=== PATIENT | male | born 1950 | race Caucasian/White ===

== ENCOUNTER 2017-02-13 18:23 | Emergency (ER) | payer OTHER ==
[2017-02-13 18:38] VITALS: BP 163/87; PULSE 66; TEMP 98.2; BMI 30.1
[2017-02-13] MEDS ORDERED: DIPHTH,PERTUSS(ACELL),TET 0.5 ML DISP.SYRIN IM ONE (19:12)
--- NOTE | 2017-02-13 19:13 | PDOC ---
History of Present Illness - General Chief Complaint: Injury Stated Complaint: LT FOOT INJURY Time Seen by Provider: 02/13/17 19:07 History Source: Patient Exam Limitations: No Limitations - History of Present Illness Initial Comments: 02/13/17 19:34 Chief complaint: Foot laceration This 66-year-old male who is on aspirin who hit his toe and has a small avulsion that happened earlier, he bandaged it but it was continuing to bleed. Patient's tetanus is not up to date GENERAL/CONSTITUTIONAL: No fever, weakness. dizziness HEAD, EYES, EARS, NOSE AND THROAT: No change in vision. No ear pain or discharge. No sore throat. CARDIOVASCULAR: No chest pain RESPIRATORY: No shortness of breath or cough GASTROINTESTINAL: No pain, nausea, vomiting, diarrhea or constipation GENITOURINARY: No dysuria MUSCULOSKELETAL: No neck or back pain SKIN: No rash NEUROLOGIC: No headache, vertigo, loss of consciousness, or loss of sensation. GENERAL: The patient is awake, alert, and fully oriented, in no acute distress. HEAD: Normal with no signs of trauma. EYES: Pupils equal, round and reactive to light, sclera anicteric, conjunctiva clear. ENT: pharynx: no erythema, no exudate, uvula midline NECK: supple CHEST: clear, nontender, rr EXTREMITIES: Left little toe with 1 cm superficial skin avulsion on the dorsum, no swelling or tenderness, full range of motion, nail intact. Exam of rest of the foot is negative. Rest of extremities, normal range of motion, no edema. NEUROLOGICAL: Normal speech, normal gait. SKIN: Warm, Dry Past History - Past Medical History Allergies/Adverse Reactions: Allergies Allergy/AdvReac Type Severity Reaction Status Date / Time No Known Drug Allergies Allergy Verified 02/13/17 18:39 Home Medications: Ambulatory Orders Aspirin [ASA -] 81 mg PO ONCE 08/08/14 Fenofibrate Nanocrystallized [Tricor] 145 mg PO DAILY 08/08/14 Losartan/Hydrochlorothiazide [Losartan-Hctz 50-12.5 mg Tab] 1 each PO DAILY Metoprolol Tartrate [Lopressor -] 100 mg PO BID 08/08/14 [place]-3 Acid Ethyl Esters [Lovaza -] 1 gm PO BID 08/08/14 Oxycodone HCl/Acetaminophen [Percocet 5-325 mg Tablet -] 1 tab PO Q4H PRN #20 tablet 08/13/14 Zolpidem Tartrate [Ambien] 5 mg PO PRN PRN #0 tablet 08/13/14 Omeprazole [Prilosec] 40 mg PO BID 04/28/16 Anemia: No Asthma: No Cancer: No Cardiac Disorders: No CVA: No COPD: No CHF: No Dementia: No Diabetes: No GI Disorders: No Disorders: No HTN: Yes Hypercholesterolemia: Yes Liver Disease: No Seizures: No Thyroid Disease: No - Surgical History Abdominal Surgery: No Appendectomy: No Cardiac Surgery: Yes Cholecystectomy: No Lung Surgery: No Neurologic Surgery: No Orthopedic Surgery: Yes - Psycho/Social/Smoking Cessation Hx Suicidal Ideation: No Smoking History: Never smoked Hx Alcohol Use: Yes (SOCIAL) Drug/Substance Use Hx: No Substance Use Type: None Hx Substance Use Treatment: No *Physical Exam - Vital Signs Last Vital Signs Temp Pulse Resp BP Pulse Ox 98.2 F 66 20 163/87 98 02/13/17 18:35 02/13/17 18:35 02/13/17 18:35 02/13/17 18:35 02/13/17 18:35 Medical Decision Making - Medical Decision Making 02/13/17 19:36 Patient with multiple medical problems, who was on a full aspirin with the wall superficial avulsion on the dorsum of the left little toe which would not stop bleeding is not bleeding now. No indication for imaging. Patient will get tetanus update since he doesn't know when his last tetanus was and we will redress sitting give him instructions Discussed issues, findings, results, applicable medications and treatments and follow-up. All these were understood and all questions were answered *DC/Admit/Observation/Transfer Diagnosis at time of Disposition: Avulsion of skin of foot Qualifiers: Encounter type: initial encounter Laterality: left Qualified Code(s): S91.302A - Unspecified open wound, left foot, initial encounter - Discharge Dispostion Disposition: HOME Condition at time of disposition: Stable Admit: No - Patient Instructions Printed Discharge Instructions: DI for Avulsion Laceration (Not Requiring Sutures) Additional Instructions: Clean with soap and water 2-3 times daily, apply bacitracin Have her reevaluated if redness, pus, fever or getting worse Followup with your doctor
== END 2017-02-13 19:27 | disposition home or self-care (01) ==
LOC: JERFT 18:23
DX: S91.105A Unspecified open wound of left lesser toe(s) without damage to nail, initial encounter (principal); I10 Essential (primary) hypertension; E78.00 Pure hypercholesterolemia, unspecified; W22.01XA Walked into wall, initial encounter; Y93.89 Activity, other specified; Y92.89 Other specified places as the place of occurrence of the external cause
CPT/HCPCS: 90715; 99281-25

== ENCOUNTER 2018-04-26 06:14 | Day surgery (SDC) | payer OTHER ==
--- NOTE | 2018-04-21 13:23 | HP ---
DATE OF ADMISSION: 04/26/2018 DATE OF DICTATION: 03/09/2018 Patient is to be admitted to the Ambulatory Surgical Service at [place] in the near future, date to be determined. HISTORY: This is a 67-year-old man who states he has had a soft tissue mass in his left upper back for 10 if not 20 years. It has been slowly increasing in size. After bringing this to the attention of his PMD recently, he was advised to undergo formal excision of the lesion. PAST MEDICAL HISTORY: Significant for hypertension. No known history of heart disease, diabetes, respiratory, renal, or hepatic insufficiency. PAST SURGICAL HISTORY: Nil. ALLERGIES: None known. REGULAR MEDICATIONS: Metoprolol, baby aspirin. SOCIAL HISTORY: Negative for tobacco, negative for alcohol. FAMILY HISTORY: Nil. REVIEW OF SYSTEMS: Nil. PHYSICAL EXAMINATION: On examination, the patient has a soft tissue mass of the left upper back measuring approximately 5 x 7 cm in size. It appears to be largely confined to the subcutaneous space. It is somewhat fixed in its deeper plane. There are no obvious silent lesions or regional lymphadenopathy. IMPRESSION: Progressively enlarging soft tissue mass of the left upper back. 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 PLAN: Excision soft tissue mass, left upper back. Indications, alternatives, possible complications were reviewed. Consent obtained. Patient is to be seen preoperatively by Dr. Carrillo. Please refer to his notes for those medical details. SLOANE TAY M.D. [id number] cc: YOSEF CARRILLO MD
[2018-04-24 13:34] VITALS: BMI 30.1
[~2018-04-26 06:14] MED LIST: LIDOCAINE 1%/EPI 1:100000 (20 ML MULTI DOSE VIAL) IJ ONE; ceFAZolin SODIUM 1 GM VIAL IVPB ONE
[2018-04-26] MEDS ORDERED: PROPOFOL 20 ML ONE ×2 (07:58→08:36)
[2018-04-26] MEDS ORDERED: SUCCINYLCHOLINE CHLORIDE 200 MG/10 ML VIAL ONE (07:58)
[2018-04-26] MEDS ORDERED: MIDAZOLAM HCL 2 MG/2 ML SINGLE DOSE VIAL ONE ×2 (07:58→08:25)
[2018-04-26] MEDS ORDERED: ceFAZolin SODIUM 1 GM VIAL IVPB ONE (08:20)
[2018-04-26] MEDS ORDERED: LIDOCAINE HCL/PF 2% SDV 5ML VIAL ONE (08:32)
[2018-04-26] MEDS ORDERED: ceFAZolin SODIUM 1 GM VIAL ONE (08:32)
[2018-04-26] MEDS ORDERED: LIDOCAINE 1%/EPI 1:100000 (20 ML MULTI DOSE VIAL) IJ ONE ×2 (08:34)
[2018-04-26 10:05] VITALS: TEMP 97.4
[2018-04-26 10:42] VITALS: BP 121/57; PULSE 60
[2018-04-26] MEDS ORDERED: ONDANSETRON 4 MG/2 ML VIAL IVPUSH PRN (11:44)
[2018-04-26] MEDS ORDERED: LACTATED RINGERS SOLUTION 1,000 ML IV SCH (11:45)
--- NOTE | 2018-04-27 12:59 | OP ---
DATE OF OPERATION: 04/26/2018 PREOPERATIVE DIAGNOSIS: Soft tissue mass, upper back. POSTOPERATIVE DIAGNOSIS: Subfascial lipomatous neoplasia, upper back. PROCEDURE: Excision subfascial lipomatous neoplasia, upper back/intermediate wound closure (6 cm). OPERATING SURGEON: Ron Jo MD ANESTHESIA: Local/sedation (Dr. Cannon). HISTORY: This 67-year-old man who presents for excision of an enlarging soft tissue mass of the upper back. Indications, alternatives, and possible complications reviewed. Consent was obtained. DESCRIPTION OF PROCEDURE: With the patient in the right lateral decubitus position, the upper back was prepped and draped in usual sterile fashion using chlorhexidine. A 6-cm oblique incision was made directly over the mass and deepened into the subcutaneous space. Deep to the superficial subcutaneous tissue, a lipomatous neoplasia was identified, which was rather poorly defined and with projections into the [place] subcutaneous fat. Sharp dissection ensued freeing the lesion from its bed and up. In its deeper plane, it was noted emanating from some of the fibers of the muscle below. The muscle fibers were , and the lesion was teased from its bed within the muscle itself openly delivering the lesion. After adequate hemostasis and irrigation, the wound was closed in layers. The fascia of the muscle below was closed using interrupted 2-0 Vicryl sutures. Subcutaneous tissues were approximated using 3-0 chromic sutures. The subcuticular layer was approximated using interrupted 3-0 Vicryl sutures. The skin edges were closed using continuous 5-0 nylon suture. Prior to complete closure, 10 mL of 1% lidocaine with epinephrine was freely instilled in the wound. Dermabond applied. Procedure terminated. NEEDLE AND INSTRUMENT COUNTS: Correct. ESTIMATED BLOOD LOSS: Minimal. SPECIMENS: Soft fascial lipomatous neoplasia, upper back. DRAINS: None. Patient tolerated the procedure. The procedure was terminated. Karthik [id number]
--- NOTE | 2018-04-27 14:52 | PATH ---
Surgical Pathology Report Patient Name: RAFFY BILLY [facility]. Rec. #: [id number] /Age/Gender: 1950 (Age: 67) / M Account: [id number] Location: [facility] SURGICAL Taken: 04/26/2018 Received: 04/26/2018 Reported: 04/27/2018 Physicians: Ron Jo M.D. Specimen(s) Received SOFT TISSUE LIPOMA NEOPLASIA FROM LEFT UPPER BACK Clinical History Soft tissue mass Final Diagnosis UPPER BACK, LEFT, EXCISION: MATURE FIBROADIPOSE TISSUE CONSISTENT WITH LIPOMA. Electronically Signed Eliza Kan M.D. Gross Description Received in formalin labeled "lipoma left upper back" is a lobulated, yellow adipose tissue weighing 51 g which measures 6.5 x 5.5 x 3 cm. Cut sections show a yellow homogeneous surface with focal scant fibrotic component. No hemorrhage or necrosis identified. Carding Utility Tender sections are submitted in 2 cassettes KWS/04/26/2018 sulki/04/26/2018
== END 2018-04-26 10:42 | disposition home or self-care (01) ==
LOC: JASU-SURG 06:14
PROVIDERS: ATTEND Surgery
PROC: 0JB70ZZ Excision of Back Subcutaneous Tissue and Fascia, Open Approach (ICD-10-PCS; principal; 2018-04-26 08:00)
DX: D17.1 Benign lipomatous neoplasm of skin and subcutaneous tissue of trunk (principal)
CPT/HCPCS: 88304-TC; 94760

== ENCOUNTER 2018-12-28 06:09 | Day surgery (SDC) | payer OTHER ==
[2018-12-11 13:52] VITALS: BMI 30.1
[2018-12-28] MEDS ORDERED: MIDAZOLAM HCL 2 MG/2 ML SINGLE DOSE VIAL ONE (07:26)
[2018-12-28] MEDS ORDERED: PROPOFOL 20 ML ONE (07:26)
[2018-12-28] MEDS ORDERED: LIDOCAINE HCL 1%, 10 MG/ML (20ML VIAL) ONE (07:36)
[2018-12-28] MEDS ORDERED: BUPIVACAINE HCL/PF 0.5% (5MG/ML) 10 ML VIAL ONE (07:36)
--- NOTE | 2018-12-28 08:10 | HP ---
Satellite [facility] - Chief Complaint Chief Complaint: right hand pain, numbness History of Present Illness: right CTS History Source: Patient Limitations to Obtaining History: No Limitations - Past Medical History Allergies/Adverse Reactions: Allergies Allergy/AdvReac Type Severity Reaction Status Date / Time No Known Drug Allergies Allergy Verified 12/28/18 06:36 - Current Medications Current Medications: Home Medications Medication Instructions Recorded Aspirin [ASA -] 81 mg PO ONCE 08/08/14 Fenofibrate Nanocrystallized 145 mg PO DAILY 08/08/14 [Tricor] Losartan/Hydrochlorothiazide 1 each PO DAILY 08/08/14 [Losartan-Hctz 50-12.5 mg Tab] Metoprolol Tartrate [Lopressor -] 100 mg PO BID 08/08/14 [place]-3 Acid Ethyl Esters [Lovaza 1 gm PO BID 08/08/14 -] Multivit ([facility] Formulary) 1 mg PO DAILY 12/11/18 Satellite Physical Exam - Physical Examination Vital Signs: Vital Signs Period Temp Pulse Resp BP Sys/Cunningham Pulse Ox Last 24 Hr 97.8 F-97.8 F 54-54 20-20 128-128/71-71 96 General Appearance: Well Nourished ENT: Clear Lung: Clear to auscultation Heart: Regular rate & rhythm Breasts: Soft Abdomen: Soft Extremities: No edema Satellite Impression/Plan - Impression/Plan Impression: right CTS Operative Procedure: right CTR Date to be Performed: 12/28/18
[2018-12-28] MEDS ORDERED: ceFAZolin SODIUM 1 GM VIAL IVPB ONE (08:15)
[2018-12-28] MEDS ORDERED: ceFAZolin SODIUM 1 GM VIAL ONE (08:22)
[2018-12-28] MEDS ORDERED: LIDOCAINE HCL 1%, 10 MG/ML (50 mL VIAL) IJ ONE (08:24)
[2018-12-28] MEDS ORDERED: BUPIVACAINE HCL/PF (5 MG/ML) 30 ML VIAL IJ ONE (08:24)
--- NOTE | 2018-12-28 08:49 | OP ---
Operative Note - Note: Operative Date: 12/28/18 Pre-Operative Diagnosis: right CTS, tenosynovitis Operation: right CTR, tenosynovectomy Post-Operative Diagnosis: Same as Pre-op Surgeon: Stephen Rodriguez Anesthesiologist/FUR STORAGE CLERK: Gaby Edmondson Anesthesia: Local, MAC Specimens Removed: tenosynovium Estimated Blood Loss (mls): 0 Blood Volume Replaced (mls): 0 Fluid Volume Replaced (mls): 500 Operative Report Dictated: Yes
--- NOTE | 2018-12-28 09:11 | SPEC ---
DATE OF OPERATION: 12/28/2018 PREOPERATIVE DIAGNOSES: Right carpal tunnel syndrome and tenosynovitis. POSTOPERATIVE DIAGNOSES: Right carpal tunnel syndrome and tenosynovitis. PROCEDURE: Right carpal tunnel release and tenosynovectomy. SURGEON: Stephen Rodriguez M.D. ASSISTANTS: None. TOURNIQUET TIME: 16 minutes. ANESTHESIOLOGIST: LUZ MARIA Francois ANESTHESIA: MAC and local. Injection of 15 mL 0.5% Marcaine and 1% lidocaine mix. DRAINS: None. COMPLICATIONS: None. SPECIMEN: Tenosynovium. DRAINS: None. INDICATIONS: After understanding the potential risks, complications, alternatives and benefits of surgery versus nonsurgical treatment, the patient elected to undergo this procedure. DESCRIPTION OF PROCEDURE: The patient was brought to the operating room, peripheral IV placed and intravenous sedation was given. One gram of intravenous Ancef was given. MAC anesthesia was induced. A tourniquet was applied to the right upper arm and the right upper extremity was prepped and draped in sterile fashion. The entire case was done under 3.8 loupe magnification. A marking pen was utilized to soraya out a longitudinal incision in an already existing skin crease. Twenty mL of 0.5% Marcaine mixed with 1% Lidocaine was injected in and around the surgical incision. The right upper extremity was elevated, exsanguinated with an Esmarch bandage and the tourniquet inflated to 250 mmHg. A No. 15 scalpel blade was utilized to cut down through the skin. Subcutaneous hemostasis was achieved with the bipolar cautery. Dissection was done through the superficial palmar fascia. Self-retaining retractors were placed into the wound. Under direct visualization, the transverse carpal ligament was transected with a No. 15 scalpel blade, exposing the median nerve and the contents of the carpal tunnel. The distal and proximal extents of the release were completed with a Littler scissor and checked with irrigation and my small finger. They were seen to be complete. Limited dissection was done on the radial side of the median nerve and more extensive dissection was done on the ulnar side of the median nerve. The patients nerve was seen to be quite compressed by epineurium and therefore a limited epineurotomy was performed. A Ragnell retractor was used to gently retract the median nerve in a radial direction. The patient had a lot of tenosynovitis and therefore a tenosynovectomy was performed off all 9 flexor tendons. This was passed off the field as tenosynovium right wrist. The floor of the carpal tunnel was checked. There were no abnormal masses or ganglion cysts. The area was copiously irrigated and washed out and closure begun. Undyed 4-0 Vicryl was used to close the deep dermal layer. Final skin reapproximation was done with horizontal mattress 4-0 nylon sutures. The area was then washed and dried, covered with Xeroform, 4x4s, fluffs between the fingers, Webril and a 4-inch plaster roll was utilized to make a volar splint, which was then wrapped with Riley and Coban. The tourniquet was taken down after a total tourniquet time of 16 minutes. There were no complications during the case. The patient tolerated the procedure well and was brought to the ambulatory recovery room in stable condition. Karthik [id number]
[2018-12-28 09:17] VITALS: PULSE 46; TEMP 97.4
[2018-12-28] MEDS ORDERED: ONDANSETRON 4 MG/2 ML VIAL IVPUSH PRN (10:36)
[2018-12-28] MEDS ORDERED: oxyCODONE HCL 5 MG TABLET PO PRN (10:36)
[2018-12-28] MEDS ORDERED: LACTATED RINGERS SOLUTION 1,000 ML IV SCH (10:45)
[2018-12-28 11:45] VITALS: BP 142/74
--- NOTE | 2018-12-29 17:38 | PATH ---
Surgical Pathology Report Patient Name: RAFFY BILLY Med. Rec. #: [id number] /Age/Gender: 1950 (Age: 68) / M Account: [id number] Location: [facility] SURGICAL Taken: 12/28/2018 Received: 12/28/2018 Reported: 12/29/2018 Physicians: Stephen Rodriguez M.D. Specimen(s) Received TENOSYNOVIUM RIGHT WRIST Clinical History Right carpal tunnel syndrome Final Diagnosis TENOSYNOVIUM, RIGHT WRIST, EXCISION: TENOSYNOVIAL TISSUE WITH FOCAL FIBROSIS. Electronically Signed Facundo Wills M.D. Gross Description Received in formalin labeled "tenosynovium right wrist," is a 1.3 x 1.0 x 0.3 cm aggregate of peralta-yellow portions of soft tissue, consistent with tenosynovium. The specimen is submitted in toto in one cassette. /12/28/2018 saudi12/28/2018
== END 2018-12-28 11:00 | disposition home or self-care (01) ==
LOC: JASU-SURG 06:09
PROVIDERS: ATTEND Orthopaedic Surgery
PROC: 01N50ZZ Release Median Nerve, Open Approach (ICD-10-PCS; principal; 2018-12-28 08:00)
DX: G56.01 Carpal tunnel syndrome, right upper limb (principal); M65.9 Synovitis and tenosynovitis, unspecified; I10 Essential (primary) hypertension
CPT/HCPCS: 88304-TC

== ENCOUNTER 2019-03-04 07:07 | Emergency (ER) | payer OTHER ==
--- NOTE | 2019-03-04 07:21 | PDOC ---
History of Present Illness - General Stated Complaint: BACK PAIN Time Seen by Provider: 03/04/19 07:20 History Source: Patient Exam Limitations: No Limitations - History of Present Illness Initial Comments: Pt is a 68 yo M, with PMH of HTN and diet-controlled pre-DM, who is presenting from home via EMS with complaint of worsening lower back pain. Pt states he normally has lower back and knee pain, which is worse in the AM and improves after he stretches throughout the day. Pt states last night he went to the [facility], had a "few beers," and around 11PM at home, began experiencing sharp pain in his lower back, which feels better when he lies flat. The pain is increased in severity from his normal low back pain, which prompted him to call EMS. Pain is worsened with movement, and does not radiate from his midline lower back. Pt has an abrasion over the bridge of his nose, and states "I may have scratched it, but I'm not sure how it got there." Pt did not take any analgesics prior to arrival. Pt denies any fevers/chills, headache, vision changes, syncope, chest pain, palpitations, SOB, nausea/vomiting, abdominal pain , urinary symptoms, diarrhea/constipation, or leg swelling. Allergies: NKDA PCP: Milla GI: Thai Social: Pt drinks alcohol occasionally per pt. Pt denies any cigarette or drug use. Pt denies any recent travel or sick contacts. Surgical: b/l knee replacement, carpal tunnel repair. Family: no relevant history. 03/04/19 08:24 Past History - Travel Traveled outside of the country in the last 30 days: No Close contact w/someone who was outside of country & ill: No - Past Medical History Allergies/Adverse Reactions: Allergies Allergy/AdvReac Type Severity Reaction Status Date / Time No Known Drug Allergies Allergy Verified 12/28/18 06:36 Home Medications: Ambulatory Orders Aspirin [ASA -] 81 mg PO ONCE 08/08/14 Fenofibrate Nanocrystallized [Tricor] 145 mg PO DAILY 08/08/14 Losartan/Hydrochlorothiazide [Losartan-Hctz 50-12.5 mg Tab] 1 each PO DAILY Metoprolol Tartrate [Lopressor -] 100 mg PO BID 08/08/14 [place]-3 Acid Ethyl Esters [Lovaza -] 1 gm PO BID 08/08/14 Multivitamins [Tab-A-Vit -] 1 tab PO DAILY 12/11/18 Hydrocodone/Acetaminophen [Hydrocodone-Acetamin 5-325 mg] 1 - 2 tab PO TID PRN # 30 tablet MDD 6 12/28/18 Anemia: No Asthma: No Cancer: No Cardiac Disorders: No CVA: No COPD: No CHF: No Dementia: No Diabetes: No GI Disorders: No Disorders: No HTN: Yes Hypercholesterolemia: Yes Liver Disease: No Seizures: No Thyroid Disease: No - Surgical History Abdominal Surgery: No Appendectomy: No Cardiac Surgery: Yes ("water around sac of heart") Cholecystectomy: No Lung Surgery: No Neurologic Surgery: No Orthopedic Surgery: Yes (MILENA KNEE REPLACEMENT, LEFT SHOULDER SX) - Suicide/Smoking/Psychosocial Hx Smoking History: Never smoked Have you smoked in the past 12 months: No Hx Alcohol Use: Yes (ON OCCASION) Drug/Substance Use Hx: No Substance Use Type: None Hx Substance Use Treatment: No Review of Systems - Review of Systems Able to Perform ROS?: Yes Is the patient limited Upper Sorbian proficient: No Constitutional: Yes: Weight Stable. No: Chills, Diaphoresis, Fever, Loss of Appetite, Malaise, Weakness HEENTM: No: Blurred Vision, Recent change in vision, Double Vision, Nose Congestion, Throat Pain, Difficulty Swallowing Respiratory: No: Cough, Orthopnea, Shortness of Breath Cardiac (ROS): No: Chest Pain, Edema, Irregular Heart Rate, Lightheadedness, Palpitations, Syncope, Chest Tightness ABD/GI: No: Constipated, Diarrhea, Nausea, Poor Appetite, Poor Fluid Intake, Vomiting, Abdominal cramping : No: Burning, Dysuria, Frequency, Flank Pain, Hematuria, Incontinence, Pain, Urgency, Testicular Pain Musculoskeletal: Yes: See HPI, Back Pain. No: Joint Pain, Joint Swelling, Muscle Pain, Muscle Weakness, Neck Pain Integumentary: No: Bruising, Rash Neurological: No: Headache, Numbness, Paresthesia, Weakness, Unsteady Gait, Ataxia, Dizziness Psychiatric: No: Sleep Pattern Change, Change in Appetite Endocrine: No: Increased Urine, Change in Weight Hematologic/Lymphatic: No: Anemia, Blood Clots, Easy Bleeding, Easy Bruising All Other Systems: Reviewed and Negative *Physical Exam - Physical Exam Comments: HTN 168/90 on exam, pt afebrile. Pt in NAD, obese body habitus. Pt smells mildly of alcohol and face is red. Pt alert and oriented x3. visual journalist generally intact, muscular strength and sensation intact of all extremities. Mild midline TTP over lower lumbar spine. No ecchymosis, step-offs, or crepitus. Pts lower back appears to be in spasm, tenderness elicited with having pt sit up from supine. No reproduction of pain with flexion and extension at the hip. Head normocephalic, atraumatic. Small abrasion over bridge of nose, no active bleeding at this time. Eyes PERRLA, EOMI. Oropharynx without erythema or exudates, no LAD b/l. No nasal congestion, hearing intact. Clear heart sounds, S1/S2, no JVD, b/l pedal edema, or heart murmur. Clear lung sounds, no respiratory distress, wheezes, crackles, or accessory muscle use. No abdominal or CVA tenderness to palpation, no rebound, no guarding. Abdomen soft, non-distended, and with normoactive bowel sounds. Skin otherwise without jaundice or rash, except as noted as above. 03/04/19 07:27 03/04/19 08:05 Vital Signs - Vital Signs #1 Blood Pressure: 164/94 MAP: 117 BP Location: Left Arm Blood Pressure Position: Supine Pulse Rate: 78 Respiratory Rate: 14 O2 Sat by Pulse Oximetry (%): 100 Oxygen Delivery Method: Room Air Medical Decision Making - Medical Decision Making Pt was seen at bedside, also will be seen by attending Dr. Cordon. Pt presenting from home via EMS with complaint of worsening lower back pain. Pt states he normally has lower back and knee pain, which is worse in the AM and improves after he stretches throughout the day. Pt states last night he went to the [employer], had a "few beers," and around 11PM at home, began experiencing sharp pain in his lower back, which feels better when he lies flat. The pain is increased in severity from his normal low back pain, which prompted him to call EMS. Pain is worsened with movement, and does not radiate from his midline lower back. Pt has an abrasion over the bridge of his nose, and states "I may have scratched it, but I'm not sure how it got there." Pt did not take any analgesics prior to arrival. Pt denies any fevers/chills, headache, vision changes, syncope, chest pain, palpitations, SOB, nausea/vomiting, abdominal pain , urinary symptoms, diarrhea/constipation, or leg swelling. Considering lower back spasm 2/2 strain or trauma vs fracture vs degenerative back changes vs herniated disc vs nephrolithiasis. Less concern for AAA as pt is hemodynamically stable, no radiation of pain, minimal risk factors. Pt has no incontinence, fever, or decreased extremity strength or sensation to suggest spinal stenosis or compression. Ordered work-up including CBC, CMP, UA, and lumbar-sacral spine x-ray to eval for fracture. Provided 15 mg IM toradol, lidocaine patch, and 500 mg PO robaxin for improvement of spasm and discomfort. Will continue to reassess pt and monitor for symptomatic improvement. 03/04/19 07:27 03/04/19 08:17 Lumbar x-ray shows worsening arthritic changes, but no acute fractures or lytic pathology. Pt states pain improving, also provided 650 mg PO tylenol for pain. Will reasses for dispo. UA negative for bacteria, nitrite negative. 03/04/19 09:17 Pt ambulatory in the ED, feels ready to go home. Considering normal lab results and imaging, pt can be discharged to home with follow-up. Pt advised to follow-up with PCP in 1-2 days. Strict return precautions provided with pt understanding. 03/04/19 09:45 *DC/Admit/Observation/Transfer Diagnosis at time of Disposition: Back pain Qualifiers: Back pain location: low back pain Chronicity: acute Back pain laterality: midline Sciatica presence: without sciatica Qualified Code(s): M54.5 - Low back pain - Discharge Dispostion Disposition: HOME Condition at time of disposition: Good Decision to Admit order: No - Referrals Referrals: Dheeraj Loyola MD [Primary Care Provider] - - Patient Instructions Printed Discharge Instructions: DI for Low Back Pain Additional Instructions: You were seen in the ER today for low back pain. The results of your labs and imaging today were normal. Please follow-up with your primary care doctor within 1-2 days to discuss your visit and make sure your symptoms have improved. Please return to the ER if you have any worsening pain, inability to stand or walk, weakness or decreased sensation in your arms or legs, incontinence, development of fevers or chills, loss of consciousness, inability to tolerate food or fluids, or any other concerns. - Post Discharge Activity
--- NOTE | 2019-03-04 07:28 | PDOC ---
Attending Attestation - Resident Resident Name: Jocelyn Perkins - ED Attending Attestation I have performed the following: I have examined & evaluated the patient, The case was reviewed & discussed with the resident, I agree w/resident's findings & plan, Exceptions are as noted - HPI HPI: 03/04/19 07:26 68y M hx of hypertension, hyperlipidemia and GERD presents with worsening back pain since last night. Pt has had prior back pain that is typically worse in the morning when he wakes up. PAin is worse since he went to sleep last night. No recent trauma/falls. pt notes the pain is worse in the lower back. It does not radiat. no chest pain, sob, abd pain, n/v, fc, numbnes/tingling/weakness. denies any hematuria, disyrjia, frequency, diarrhea. Pain is worse when he is trying to sit up or move around. exam: General: well appearing, no distress at rest Chest: cta b/l Card: rrr, no mrg abd: soft nontender. no cva tenderness bcak: no cerivical/thoracic ttp, mild diffuse ttp on lumbar region ( paraspinally and midline) no crepitus, stepoffs, ecchymosis/induration/erythema suspect msk pain/spasm will obtain UA to screen for hematuria/kidney stones flexeril, toradol xray to r/o bony cause will reasesss
[2019-03-04 07:39] VITALS: TEMP 98.3; BMI 30.1
[2019-03-04] MEDS ORDERED: LIDOCAINE 5% TOPICAL PATCH TP ONE (07:55)
[2019-03-04] MEDS ORDERED: KETOROLAC TROMETHAMINE 15 MG/ML VIAL IM ONE (07:55)
[2019-03-04] MEDS ORDERED: METHOCARBAMOL 500 MG TABLET PO ONE (07:56)
[2019-03-04 08:02] VITALS: BP 164/94; PULSE 78
[2019-03-04] MEDS ORDERED: LIDOCAINE 5% TOPICAL PATCH ONE (08:02)
[2019-03-04] MEDS ORDERED: METHOCARBAMOL 500 MG TABLET ONE (08:02)
[2019-03-04] MEDS ORDERED: KETOROLAC TROMETHAMINE 15 MG/ML VIAL ONE (08:02)
[2019-03-04] MEDS ORDERED: ACETAMINOPHEN 325 MG TABLET (FP) PO ONE (09:01)
[2019-03-04] MEDS ORDERED: ACETAMINOPHEN 325 MG TABLET (FP) ONE (09:03)
[2019-03-04 09:07] LABS: EPI CELLS 0.2 /HPF (0-5/HPF); HYALINE CASTS 1 /lpf (0-8); URINE APPEARANCE CLEAR; URINE BACTERIA 0.5 /hpf (NEGATIVE); URINE BILIRUBIN NEGATIVE (NEGATIVE); URINE COLOR YELLOW; URINE GLUCOSE (UA) NEGATIVE (NEGATIVE); URINE KETONE NEGATIVE (NEGATIVE); URINE LEUK ESTERASE NEGATIVE (NEGATIVE); URINE NITRITE NEGATIVE (NEGATIVE); URINE PROTEIN NEGATIVE (NEGATIVE); URINE RBC 7 /hpf (0-4); URINE WBC 1 /hpf (0-5)
[2019-03-04] MEDS ORDERED: LIDOCAINE PATCH REMOVAL MC SCH (22:00)
== END 2019-03-04 09:51 | disposition home or self-care (01) ==
LOC: JER 07:07
PROC: 3E0233Z Introduction of Anti-inflammatory into Muscle, Percutaneous Approach (ICD-10-PCS; principal; 2019-03-04)
DX: M54.5 Low back pain (principal); I10 Essential (primary) hypertension; R73.03 Prediabetes
CPT/HCPCS: 72100-TC-FY; 81003; 87086; 96372; 99282-25

== ENCOUNTER 2019-05-17 13:37 | Inpatient (IN) | payer OTHER ==
[2019-05-17] MEDS ORDERED: SODIUM CHLORIDE 1,000 ML IV SCH (13:45)
--- NOTE | 2019-05-17 14:28 | PDOC ---
History of Present Illness - General Chief Complaint: Weakness Stated Complaint: FACIAL DROOP/ARM WEAKNES/ Time Seen by Provider: 05/17/19 14:04 History Source: Patient Exam Limitations: No Limitations tPA Exclusion Checklist 0-3hr - Time Elapsed Date last known well: 05/16/19 Time last known well: 22:00 Elaspsed time: 1 Day(s) and 9 Hour(s) and 4 Minutes - Thrombolytic Therapy Candidate Is the patient eligible for Thrombolytic Therapy?: No - Ineligibility reason(s) Reasons No tPA given: Outside of window - delayed arrival NIH Stroke Scale - Last Known Well Date/Time & Onset Date Last Known Well: 05/15/19 Time Last Known Well: 05:00 - Initial Evaluation Level of consciousness: Alert Ask patient the month and their age: Answers both correctly Ask patient to open & close eyes; make fist and let go: Obeys both correctly Best gaze (horizontal eye movement): Normal Visual field testing: No visual field loss Facial paresis (Show teeth/raise eyebrows/close eyes tight): Partial paralysis ( total or near paralysis of lower face) Motor Function: Left Arm: Normal Motor Function: Right Arm: Drift Motor Function: Left Leg: Normal (extends leg 30 degrees for 5 seconds without drift) Motor Function: Right Leg: No effort against gravity Limb Ataxia: No ataxia Sensory(Use pinprick test arms,legs,trunk,face/side to side): Normal Best language (Describe picture, name items, read sentences): Mild to moderate aphasia Dysarthria (read several words): Mild to moderate slurring of words Extinction and Inattention: No abnormality - Total Score NIH Stroke Scale Score: 8 Past History - Travel Traveled outside of the country in the last 30 days: No Close contact w/someone who was outside of country & ill: No - Past Medical History Allergies/Adverse Reactions: Allergies Allergy/AdvReac Type Severity Reaction Status Date / Time No Known Drug Allergies Allergy Verified 05/17/19 13:39 Home Medications: Ambulatory Orders Aspirin [ASA -] 81 mg PO ONCE 08/08/14 Fenofibrate Nanocrystallized [Tricor] 145 mg PO DAILY 08/08/14 Losartan/Hydrochlorothiazide [Losartan-Hctz 50-12.5 mg Tab] 1 each PO DAILY Metoprolol Tartrate [Lopressor -] 100 mg PO BID 08/08/14 [place]-3 Acid Ethyl Esters [Lovaza -] 1 gm PO BID 08/08/14 Multivitamins [Tab-A-Vit -] 1 tab PO DAILY 12/11/18 Hydrocodone/Acetaminophen [Hydrocodone-Acetamin 5-325 mg] 1 - 2 tab PO TID PRN # 30 tablet MDD 6 12/28/18 Anemia: No Asthma: No Cancer: No Cardiac Disorders: No CVA: No COPD: No CHF: No Dementia: No Diabetes: No GI Disorders: No Disorders: No HTN: Yes Hypercholesterolemia: Yes Liver Disease: No Seizures: No Thyroid Disease: No - Surgical History Abdominal Surgery: No Appendectomy: No Cardiac Surgery: Yes ("water around sac of heart") Cholecystectomy: No Lung Surgery: No Neurologic Surgery: No Orthopedic Surgery: Yes (MILENA KNEE REPLACEMENT, LEFT SHOULDER SX) - Immunization History Immunization Up to Date: Yes - Suicide/Smoking/Psychosocial Hx Smoking History: Never smoked Have you smoked in the past 12 months: No Information on smoking cessation initiated: No Hx Alcohol Use: No Drug/Substance Use Hx: No Substance Use Type: None Hx Substance Use Treatment: No Review of Systems - Review of Systems Able to Perform ROS?: Yes Comments:: 05/17/19 15:34 CONSTITUTIONAL: Absent: fever, chills, diaphoresis, generalized weakness, malaise, loss of appetite HEENT: Absent: rhinorrhea, nasal congestion, throat pain, throat swelling, difficulty swallowing, mouth swelling, ear pain, eye pain, visual Changes CARDIOVASCULAR: Absent: chest pain, loss of consciousness, palpitations, irregular heart rate, peripheral edema RESPIRATORY: Absent: cough, shortness of breath, dyspnea with exertion, orthopnea, wheezing, stridor, hemoptysis GASTROINTESTINAL: Absent: abdominal pain, abdominal distension, nausea, vomiting, diarrhea, constipation, melena, hematochezia GENITOURINARY: Absent: dysuria, frequency, urgency, hesitancy, hematuria, flank pain, genital pain MUSCULOSKELETAL: Absent: myalgia, arthralgia, joint swelling SKIN: Absent: rash, itching, pallor HEMATOLOGIC/IMMUNOLOGIC: Absent: easy bleeding, easy bruising, lymphadenopathy, frequent infections ENDOCRINE: Absent: unexplained weight gain, unexplained weight loss, heat intolerance, cold intolerance NEUROLOGIC: Present: focal weakness, unsteady gait Absent: headache, paresthesias, dizziness , seizure, mental status changes, bladder or bowel incontinence PSYCHIATRIC: Absent: anxiety, depression, suicidal or homicidal ideation, hallucinations. Is the patient limited Maltese proficient: No *Physical Exam - Vital Signs Last Vital Signs Temp Pulse Resp BP Pulse Ox 98.5 F 63 16 157/85 100 05/17/19 13:40 05/17/19 13:40 05/17/19 13:40 05/17/19 13:40 05/17/19 13:40 - Physical Exam Comments: 05/17/19 15:38 GENERAL: Well developed, well nourished. Awake and alert. No acute distress. HEENT: Normocephalic, atraumatic. PERRLA, EOMI. No conjunctival pallor. Sclera are non- icteric. Moist mucous membranes. Oropharynx is clear. NECK: Supple. Full ROM. No JVD. Carotid pulses 2+ and symmetric, without bruits. No thyromegaly. No lymphadenopathy. CARDIOVASCULAR: Regular rate and rhythm. No murmurs, rubs, or gallops. Distal pulses are 2+ and symmetric. PULMONARY: No evidence of respiratory distress. Lungs clear to auscultation bilaterally. No wheezing, rales or rhonchi. ABDOMINAL: Soft. Non-tender. Non-distended. No rebound or guarding. No organomegaly. Normoactive bowel sounds. MUSCULOSKELETAL Normal range of motion at all joints. No bony deformities or tenderness. No CVA tenderness. EXTREMITIES: No cyanosis. No clubbing. No edema. No calf tenderness. SKIN: Warm and dry. Normal capillary refill. No rashes. No jaundice. NEUROLOGICAL: Alert, awake, appropriate. Cranial nerves 2-12 intact. No deficits to light touch and temperature in face, upper extremities and lower extremities. Weakness to the R face, R upper extremity and r lower extremity. Normoreflexic in the upper and lower extremities. Slurred speech. Toes are down-going bilaterally. Gait is normal without ataxia. PSYCHIATRIC: Cooperative. Good eye contact. Appropriate mood and affect. ED Treatment Course - LABORATORY CBC & Chemistry Diagram: 05/18/19 05:35 05/17/19 14:20 Medical Decision Making - Medical Decision Making 05/17/19 15:45 The patient is a 68-year-old male with past medical history of alcoholism, HTN, presents to the ER today for weakness to the right arm and right leg. He states that he woke up with these symptoms. He also notes that his speech is slurred. He states his at his chiropractor's office can see had back pain, and the chiropractor noted that his right arm and right leg were weak and told him to come to the ER immediately because he is most likely having a stroke. He states he had difficulty swallowing this morning. He also states that he feels weak on the right side and is having trouble walking. He states he has never had this happen to him before. He states he has also been feeling off since Tuesday. Denies fevers, chills, lightheadedness, dizziness, headache, numbness and tingling to the shunt is. A/P: Ischemic stroke See NIH stroke scale; currently 8 on the scale. Right-sided weakness with right-sided facial droop CT scan shows a left pontine infarct consistent with his symptoms Last known well was when he woke up this morning, so defer to last night as last known well Outside tPA window EKG shows sinus bradycardia rate [address]-T wave changes normal intervals and axis. We'll order CTA and the patient states he has had minute duration of his neck. Admit to hospitalist for Dr. Loyola Case discussed with Dr. De Leon *DC/Admit/Observation/Transfer Diagnosis at time of Disposition: Stroke Qualifiers: CVA mechanism: occlusion Precerebral and cerebral artery: unspecified cerebral artery Qualified Code(s): I63.50 - Cerebral infarction due to unspecified occlusion or stenosis of unspecified cerebral artery - Discharge Dispostion Condition at time of disposition: Guarded Decision to Admit order: Yes - Referrals - Patient Instructions - Post Discharge Activity
[2019-05-17 14:43] LABS: BASO % 0.7 % (0-2.0); EOS % 2.1 % (0-4.5); HEMOGLOBIN 15.6 GM/dL (11.7-16.9); LYMPH % 15.5 % (8-40); MCHC 34.6 g/dl (32.0-35.9); MEAN CELL VOLUME 86.7 fl (80-96); MEAN PLT VOLUME 7.8 fl (7.5-11.1); MONO % 7.8 % (3.8-10.2); NEUT % 73.9 % (42.8-82.8); PLATELET COUNT 192 K/MM3 (134-434); RDW 14.7 % (11.9-15.9); WHITE BLOOD COUNT 7.9 K/mm3 (4.0-10.0)
[2019-05-17 14:55] LABS: INR 0.98 (0.83-1.09); PROTHROMBIN TIME (PATIENT) 11.6 SEC (9.7-13.0)
[2019-05-17 15:14] LABS: ALBUMIN 3.8 g/dl (3.4-5.0); BILIRUBIN,TOTAL 0.8 mg/dL (0.2-1); BLOOD UREA NITROGEN 26.8 mg/dL (7-18); CALCIUM 9.8 mg/dL (8.5-10.1); CREATININE 1.3 mg/dL (0.55-1.3); POTASSIUM 3.7 mmol/L (3.5-5.1); TOT PROT 7.3 g/dl (6.4-8.2)
[2019-05-17 15:17] LABS: HDL CHOLESTEROL 44 mg/dL (40-60); TRIGLYCERIDES 184 mg/dL (0-150)
--- NOTE | 2019-05-17 16:58 | EKG ---
Test Reason : Blood Pressure : / mmHG Vent. Rate : 059 BPM Atrial Rate : 059 BPM P-R Int : 172 ms QRS Dur : 088 ms QT Int : 438 ms P-R-T Axes : 029 -03 -08 degrees QTc Int : 433 ms POOR DATA QUALITY, INTERPRETATION MAY BE ADVERSELY AFFECTED SINUS BRADYCARDIA OTHERWISE NORMAL ECG WHEN COMPARED WITH ECG OF 28-APR-2016 13:52, NO SIGNIFICANT CHANGE WAS FOUND Confirmed by NATHALIE SINCLAIR, MEHDI ([id number]) on 05/17/2019 4:58:21 PM Referred By: Confirmed By:MEHDI ZELAYA MD
--- NOTE | 2019-05-17 17:21 | HP ---
Admitting History and Physical - Primary Care Physician PCP: Dheeraj Loyola - Admission Chief Complaint: right sided weakness History of Present Illness: Patient is a 68 year old male with a significant past medical history of alcoholism (last drink yesterday per ), hypertension, hyperlipidemia and GERD. He presents to the ED today after he was noted to have weakness to his right arm and right leg while at the chiropractor's office. Patient states that he woke up this morning with right sided weakness and noted that his speech was slurred. He was told by chiropractor to come to the ED immediately for a possible stroke. Patient is having difficulty ambulating and his right leg is weak. He reports not feeling well since Tuesday of this week but did not seek medical attention until today. Denies fevers, chills, lightheadedness, dizziness, headache, numbness and tingling. He denies any past withdrawal seizure, he states he last drink was last Tuesday and denies daily drinking, but drinks heavy (beers) when he does drink. Imaging: Head CT/non contrast 05/17/19: left area of infarct. moderate atropy and mid to moderate chronic microvascular ischemic disease changes sclerotic densithy in the left side of the frontal sinus measuring 1.3 x 0.8 cm consistent with an osteoma. EKG: sinus bradycardia rate 50s no acute ST-T wave changes normal intervals and axis. History Source: Patient Limitations to Obtaining History: Clinical Condition, Physical Impairment, Poor Historian - Past Medical History Cardiovascular: Yes: HTN Gastrointestinal: Yes: Other Psych: Yes: Addictions, Anxiety Musculoskeletal: Yes: Chronic low back pain - Past Surgical History Additional Past Surgical History: right tenosynovititis 12/2018 - Smoking History Smoking history: Never smoked Have you smoked in the past 12 months: No - Alcohol/Substance Use Hx Alcohol Use: Yes Number of Drinks Daily: 6 Date of Last Use: 05/13/19 - Social History Usual Living Arrangement: Yes: With Spouse ADL: Independent History of Recent Travel: No Home Medications - Allergies Allergies/Adverse Reactions: Allergies Allergy/AdvReac Type Severity Reaction Status Date / Time No Known Drug Allergies Allergy Verified 05/17/19 13:39 - Home Medications Home Medications: Ambulatory Orders Aspirin [ASA -] 81 mg PO ONCE 08/08/14 Fenofibrate Nanocrystallized [Tricor] 145 mg PO DAILY 08/08/14 Losartan/Hydrochlorothiazide [Losartan-Hctz 50-12.5 mg Tab] 1 each PO DAILY Metoprolol Tartrate [Lopressor -] 100 mg PO BID 08/08/14 [place]-3 Acid Ethyl Esters [Lovaza -] 1 gm PO BID 08/08/14 Multivitamins [Tab-A-Vit -] 1 tab PO DAILY 12/11/18 Hydrocodone/Acetaminophen [Hydrocodone-Acetamin 5-325 mg] 1 - 2 tab PO TID PRN # 30 tablet MDD 6 12/28/18 Family Disease History - Family Disease History Family History: Unable to Obtain Review of Systems - Review of Systems Constitutional: reports: Malaise, Weakness Eyes: reports: No Symptoms HENT: reports: Difficult Swallowing Neck: reports: Pain on Movement Cardiovascular: reports: No Symptoms Respiratory: reports: No Symptoms Gastrointestinal: reports: No Symptoms Genitourinary: reports: No Symptoms Breasts: reports: No Symptoms Reported Musculoskeletal: reports: Muscle Weakness Integumentary: reports: No Symptoms Neurological: reports: Change in Speech, Headache, Incoordination, Numbness, Unsteady Gait, Weakness Psychiatric: reports: Anxiety Physical Examination Vital Signs: Vital Signs Temperature 98.5 F 05/17/19 13:40 Pulse Rate 63 05/17/19 13:40 Respiratory Rate 16 05/17/19 13:40 Blood Pressure 157/85 05/17/19 13:40 O2 Sat by Pulse Oximetry (%) 98 05/17/19 14:35 Constitutional: Yes: No Distress, Calm Eyes: Yes: WNL HENT: Yes: Atraumatic Neck: Yes: Supple Cardiovascular: Yes: Regular Rate and Rhythm Respiratory: Yes: CTA Bilaterally Gastrointestinal: Yes: Abdomen, Obese ...Rectal Exam: Yes: Deferred Musculoskeletal: Yes: WNL, Back Pain Extremities: Yes: WNL Edema: No Integumentary: Yes: WNL Neurological: Yes: Alert, Oriented ...Motor Strength: WNL Psychiatric: Yes: WNL Labs: CBC, BMP 05/17/19 14:20 05/17/19 14:20 Imaging - Results Chest X-ray: Image Reviewed Cat Scan: Image Reviewed Problem List - Problems (1) Stroke Assessment/Plan: Acute stroke per head CT. Neuro consulted monitor on tele per stroke protocol will order: - tele/stroke monitoring - neuro checks q4 - speech and swallow eval - physical therapy - given lipitor 80 x 1 and asa - SCDs -lipid panel and hmga1c in a.m. Code(s): I63.9 - CEREBRAL INFARCTION, UNSPECIFIED Qualifiers: CVA mechanism: occlusion Precerebral and cerebral artery: unspecified cerebral artery Qualified Code(s): I63.50 - Cerebral infarction due to unspecified occlusion or stenosis of unspecified cerebral artery (2) ETOH abuse Assessment/Plan: no acute signs of withdrawal, will add ativan pushes prn give banana bag now start folate/multivitamin in a.m. monitor for worsening signs of withdrawal Code(s): F10.10 - ALCOHOL ABUSE, UNCOMPLICATED (3) Hypertension Assessment/Plan: on hyzaar and metoprolol Code(s): I10 - ESSENTIAL (PRIMARY) HYPERTENSION (4) DVT prophylaxis Assessment/Plan: SCDs bilaterally Code(s): Z29.9 - ENCOUNTER FOR PROPHYLACTIC MEASURES, UNSPECIFIED Visit type - Emergency Visit Emergency Visit: Yes ED Registration Date: 05/17/19 Care time: The patient presented to the Emergency Department on the above date and was hospitalized for further evaluation of their emergent condition. - New Patient This patient is new to me today: Yes Date on this admission: 05/18/19 - Critical Care Critical Care patient: No CIWA Score Nausea/Vomitin-Mild Nausea/No Vomiting Muscle Tremors: None Anxiety: 1-Mildly Anxious Agitation: 0-Normal Activity Paroxysmal Sweats: No Perspiration Orientation: 0-Oriented Tacttile Disturbances: 0-None Auditory Disturbances: 0-None Visual Disturbances: 0-None Headache: 3-Moderate CIWA-Ar Total Score: 5 - Admission Criteria OASAS Guidelines: Admission for Medically Managed Detox: Requires at least one of the followin. CIWA greater than 12 2. Seizures within the past 24 hours 3. Delirium tremens within the past 24 hours 4. Hallucinations within the past 24 hours 5. Acute intervention needed for co occurring medical disorder 6. Acute intervention needed for co occurring psychiatric disorder 7. Severe withdrawal that cannot be handled at a lower level of care (continued vomiting, continued diarrhea, abnormal vital signs) requiring intravenous medication and/or fluids 8.
[2019-05-17] MEDS ORDERED: ASPIRIN 81 MG CHEWABLE TABLETS PO ONE (17:30)
[2019-05-17] MEDS ORDERED: ATORVASTATIN CA 80 MG TABLET (FP) PO ONE (18:21)
[2019-05-17] MEDS ORDERED: ASPIRIN 81 MG CHEWABLE TABLETS ONE (18:28)
[2019-05-17 21:44] LABS: URINE APPEARANCE CLEAR; URINE BILIRUBIN NEGATIVE (NEGATIVE); URINE COLOR YELLOW; URINE GLUCOSE (UA) NEGATIVE (NEGATIVE); URINE KETONE NEGATIVE (NEGATIVE)
[2019-05-17 21:45] LABS: PH,URINE 5.5 (5.0-8.0); URINE LEUK ESTERASE NEGATIVE (NEGATIVE); URINE NITRITE NEGATIVE (NEGATIVE); URINE PROTEIN NEGATIVE (NEGATIVE)
[2019-05-17] MEDS ORDERED: METOPROLOL TARTRATE 50 MG TABLET (FP) ONE (22:16)
[2019-05-17] MEDS: METOPROLOL TARTRATE 50 MG TABLET (FP) PO SCH (22:45)
[2019-05-17] MEDS ORDERED: FOLIC ACID INJECTION - 1 MG, THIAMINE HCL 100 MG, MULTIVIT INJECTION ADULT 10 ML in SOD... IVPB ONE (23:01)
[2019-05-17] MEDS ORDERED: LORazepam 2 MG/ML SDV VIAL IVPUSH PRN (23:01)
[2019-05-17] MEDS ORDERED: ACETAMINOPHEN 325 MG TABLET (FP) ONE (23:22)
[2019-05-17] MEDS: ACETAMINOPHEN 325 MG TABLET (FP) PO PRN (23:30)
[2019-05-18 06:36] LABS: BASO % 0.6 % (0-2.0); EOS % 3.2 % (0-4.5); HEMATOCRIT 42.6 % (35.4-49); HEMOGLOBIN 14.6 GM/dL (11.7-16.9); LYMPH % 25.1 % (8-40); MCH 29.9 pg (25.7-33.7); MCHC 34.2 g/dl (32.0-35.9); MEAN CELL VOLUME 87.4 fl (80-96); MEAN PLT VOLUME 7.8 fl (7.5-11.1); MONO % 8.2 % (3.8-10.2); NEUT % 62.9 % (42.8-82.8); PLATELET COUNT 164 K/MM3 (134-434); RBC 4.87 M/mm3 (4.00-5.60); RDW 14.4 % (11.9-15.9); WHITE BLOOD COUNT 5.9 K/mm3 (4.0-10.0)
[2019-05-18 07:10] LABS: ALBUMIN 3.5 g/dl (3.4-5.0); BLOOD UREA NITROGEN 15.9 mg/dL (7-18); CALCIUM 8.5 mg/dL (8.5-10.1); CREATININE 0.9 mg/dL (0.55-1.3); MAGNESIUM 2.1 mg/dL (1.8-2.4); POTASSIUM 3.2 mmol/L (3.5-5.1); TOT PROT 6.8 g/dl (6.4-8.2)
[2019-05-18] MEDS ORDERED: POTASSIUM CHLORIDE TABS 20 MEQ TABLET.ER (FP) PO ONE (08:26)
--- NOTE | 2019-05-18 09:11 | CONSULT ---
Consult - text type - Consultation Consultation Note: Neurology Chief Complaint: right sided weakness HPI: Patient is a 68 year old male with a significant past medical history of alcoholism (last drink yesterday per ), hypertension, hyperlipidemia and GERD. He presents to the ED after he was noted to have weakness to his right arm and right leg while at the chiropractor's office. Patient stated that he woke up this morning with right sided weakness and noted that his speech was slurred to ED but during my encounter he states that he was having symptoms a week earlier but did not seek medical attention. He was told by chiropractor to come to the ED immediately for a possible stroke. Head CT demonstrated left area of infarct, age indeterminate. MRI brain ordered Moderate atropy and mid to moderate chronic microvascular ischemic disease changes also noted. He is on low-dose aspirin 81mg which we will adjust to Aggrenox. LDL also reviewed at 107, diet modifications discussed. - Past Medical History Cardiovascular: Yes: HTN Gastrointestinal: Yes: Other Psych: Yes: Addictions, Anxiety Musculoskeletal: Yes: Chronic low back pain - Past Surgical History Additional Past Surgical History: right tenosynovititis 12/2018 - Smoking History Smoking history: Never smoked Have you smoked in the past 12 months: No - Alcohol/Substance Use Hx Alcohol Use: Yes Number of Drinks Daily: 6 Date of Last Use: 05/13/19 - Social History Usual Living Arrangement: Yes: With Spouse ADL: Independent History of Recent Travel: No Home Medications - Allergies Allergies/Adverse Reactions: Allergies Allergy/AdvReac Type Severity Reaction Status Date / Time No Known Drug Allergies Allergy Verified 05/17/19 13:39 - Home Medications Home Medications: Ambulatory Orders Aspirin [ASA -] 81 mg PO ONCE 08/08/14 Fenofibrate Nanocrystallized [Tricor] 145 mg PO DAILY 08/08/14 Losartan/Hydrochlorothiazide [Losartan-Hctz 50-12.5 mg Tab] 1 each PO DAILY Metoprolol Tartrate [Lopressor -] 100 mg PO BID 08/08/14 [place]-3 Acid Ethyl Esters [Lovaza -] 1 gm PO BID 08/08/14 Multivitamins [Tab-A-Vit -] 1 tab PO DAILY 12/11/18 Hydrocodone/Acetaminophen [Hydrocodone-Acetamin 5-325 mg] 1 - 2 tab PO TID PRN # 30 tablet MDD 6 12/28/18 Family Disease History - Family Disease History Family History: HTN Review of Systems - Review of Systems Constitutional: reports: Malaise, Weakness Eyes: reports: No Symptoms HENT: reports: Difficult Swallowing Neck: reports: Pain on Movement Cardiovascular: reports: No Symptoms Respiratory: reports: No Symptoms Gastrointestinal: reports: No Symptoms Genitourinary: reports: No Symptoms Breasts: reports: No Symptoms Reported Musculoskeletal: reports: Muscle Weakness Integumentary: reports: No Symptoms Neurological: reports: Change in Speech, Headache, Incoordination, Numbness, Unsteady Gait, Weakness Psychiatric: reports: Anxiety Physical Examination Vital Signs Period Temp Pulse Resp BP Sys/Cunningham Pulse Ox Last 24 Hr 97.2 F-98.5 F 57-67 16-20 157-166/79-97 96-100 Constitutional: Yes: No Distress, Calm Eyes: Yes: WNL HENT: Yes: Atraumatic Neck: Yes: Supple Cardiovascular: Yes: Regular Rate and Rhythm Respiratory: Yes: CTA Bilaterally Gastrointestinal: Yes: Abdomen, Obese ...Rectal Exam: Yes: Deferred Musculoskeletal: Yes: WNL, Back Pain Extremities: Yes: WNL Edema: No Integumentary: Yes: WNL Neurological: AWake, alert follows commands, slurred speech noted,right hand ball mill mixer 4-/5, RLE 4-/5, left side strength intact CBCD WBC 5.9 K/mm3 (4.0-10.0) 05/18/19 05:35 RBC 4.87 M/mm3 (4.00-5.60) 05/18/19 05:35 Hgb 14.6 GM/dL (11.7-16.9) 05/18/19 05:35 Hct 42.6 % (35.4-49) 05/18/19 05:35 MCV 87.4 fl (80-96) 05/18/19 05:35 MCHC 34.2 g/dl (32.0-35.9) 05/18/19 05:35 RDW 14.4 % (11.9-15.9) 05/18/19 05:35 Plt Count 164 K/MM3 (134-434) 05/18/19 05:35 MPV 7.8 fl (7.5-11.1) 05/18/19 05:35 CMP Sodium 143 mmol/L (136-145) 05/18/19 05:35 Potassium 3.2 mmol/L (3.5-5.1) L 05/18/19 05:35 Chloride 108 mmol/L (98-107) H 05/18/19 05:35 Carbon Dioxide 30 mmol/L (21-32) 05/18/19 05:35 Anion Gap 5 MMOL/L (8-16) L 05/18/19 05:35 BUN 15.9 mg/dL (7-18) 05/18/19 05:35 Creatinine 0.9 mg/dL (0.55-1.3) 05/18/19 05:35 Random Glucose 98 mg/dL (74-106) 05/18/19 05:35 Calcium 8.5 mg/dL (8.5-10.1) 05/18/19 05:35 Total Bilirubin 1.0 mg/dL (0.2-1) 05/18/19 05:35 AST 25 U/L (15-37) 05/18/19 05:35 ALT 38 U/L (13-61) 05/18/19 05:35 Alkaline Phosphatase 45 U/L (45-117) 05/18/19 05:35 Total Protein 6.8 g/dl (6.4-8.2) 05/18/19 05:35 Albumin 3.5 g/dl (3.4-5.0) 05/18/19 05:35 CARDIAC ENZYMES Creatine Kinase 99 U/L (26-308) 05/17/19 14:20 Troponin I < 0.02 ng/ml (0.00-0.05) 05/17/19 14:20 Plan: 68 year old male with a significant past medical history of alcoholism (last drink yesterday per ), hypertension, hyperlipidemia and GERD. He presents to the ED after he was noted to have weakness to his right arm and right leg while at the chiropractor's office. Patient stated that he woke up this morning with right sided weakness and noted that his speech was slurred to ED but during my encounter he states that he was having symptoms a week earlier but did not seek medical attention. He was told by chiropractor to come to the ED immediately for a possible stroke. Head CT demonstrated left area of infarct, age indeterminate. MRI brain ordered Moderate atropy and mid to moderate chronic microvascular ischemic disease changes also noted. He is on low-dose aspirin 81mg which we will adjust to Aggrenox. LDL also reviewed at 107 , diet modifications discussed. Speech and swallow evaluation recommended, monitor blood pressure, maintain < 160/90, no longer requires permissive hypertension. Carotid Dopplers, echo, cardiology evaluation, telemetry monitoring recommended. Monitor for any signs of alcohol withdrawal, DVT prophylaxis, physical therapy, short-term rehabilitation may be of benefit.
[2019-05-18] MEDS ORDERED: FENOFIBRIC ACID 135 MG CAP PO SCH (10:00)
[2019-05-18] MEDS ORDERED: PATIENT'S OWN MEDICATION (NON-FORMULARY) (Fenofibrate Nanocrystallized [Tricor] 145 MG) PO SCH (10:00)
[2019-05-18] MEDS ORDERED: LOSARTAN 50MG/HCTZ 12.5MG 1 TAB (FP) PO SCH (10:00)
--- NOTE | 2019-05-18 10:37 | CONSULT ---
Admitting History and Physical - Primary Care Physician PCP: Karsten Fernando - Admission History of Present Illness: Patient is a 68 year old male with a significant past medical history of alcoholism ,, hypertension, hyperlipidemia and GERD, presented with right sided weakness and noted that his speech was slurred. CT head -indicative of left pontine infarct. History Source: Patient, Medical Record Limitations to Obtaining History: Clinical Condition - Past Medical History Cardiovascular: Yes: HTN Gastrointestinal: Yes: Other Psych: Yes: Addictions, Anxiety Musculoskeletal: Yes: Chronic low back pain - Past Surgical History Additional Past Surgical History: right tenosynovititis 12/2018 - Smoking History Smoking history: Never smoked Have you smoked in the past 12 months: No If you are a former smoker, when did you quit?: 30 years ago - Alcohol/Substance Use Hx Alcohol Use: Yes Number of Drinks Daily: 6 Date of Last Use: 05/13/19 - Social History ADL: Independent History of Recent Travel: No History - Admission Reason For Visit: CEREBROVASCULAR ACCIDNT; CVA - Diagnostics CT Scan: Report Reviewed (indicative of left pontine infarct. MRI rec. moderate atropy and mid to moderate chronic microvascular ischemic disease changes sclerotic density in the left side of the frontal sinus measuring 1.3 x 0.8 cm consistent with an osteoma.) - General Mental Status: Alert and Oriented, Awake and Alert, Able to Follow Commands Attention: Intact Ability to Follow Directions: Good Head/Neck Control: WFL - Hearing Hearing: Normal Speech Evaluation - Communication Primary Language: ANGUILLAN Communication: Yes: Dysarthria Oral Expression Ability: Yes: Mild Impairment, Moderate Impairment - Speech Production Intelligibility: Yes: Mildly Impaired, Moderately Impaired - Speech Characteristics Voice Loudness: Normal Voice Pitch: Yes: Normal Voice Phonatory-based Quality: Yes: Normal Speech Pattern: Impaired Speech Clarity: < 50% Nasal Resonance: Normal Articulation: Yes: Imprecise Rate of Speech: Too Fast - Language/Auditory Comprehension Follows: Yes: 1 Stage Simple Commands Observation: Able to respond to yes/no queries: Yes, Yes/No Confusion: No, Comprehends Conversational Speech: Yes - Language/Verbal Expression Functional Communication Status: Yes: Mildly Impaired, Moderately Impaired - Swallow Evaluation/Bedside Assessment Current Nutritional Intake: NPO Oral Secretions: Yes: WFL Dentition: Yes: Adequate Facial Symmetry at Rest: Facial Droop Right Facial Symmetry on Retraction: Facial Droop Right Pucker Lips: Droops Right Smile: Droops Right Lingual Speed of Movement: Reduced Lingual Movement Strgth Against Opposition: Reduced Laryngeal Movement: Reduced Excursion, Labored,delay initiation Rate of Intake: Impulsive Bolus Size: WFL Labial Seal: WFL Oral Prep Time: WFL A-P Transit: WFL Pocketing: None Coughing/Throat Clear: Yes (nectar thick when self feeding. No cough with sips of thin) Recommendations - Speech Evaluation, Impression/Plan Impression: r/o Pontine stroke. MRI pending. Dysarthric. Delayed swallow with reduced velocity. Noted cough response on nectar thick when self feeding. No cough with sips of thin. r/o silent spiration - Disposition [facility] to: [facility] - Dysphagia Impressions/Plan Swallowing Skills: Impaired Dysphagia Impressions: Mild Impairment, Moderate Impairment, Ongoing Evaluation , Suspect Aspiration *Silent aspiration: cannot be R/O at bedside Recommendations: Modified Barium Swallow - Recommendations Diet Consistency: NPO (until MBS), Other (Initially tried pureed, nectar but cough response noted with nectar. Tray removed, npo until MBS to r/o silent aspiration) Medication Administration: Crushed with applesauce
[2019-05-18] MEDS ORDERED: PT OWN MED DRAWER 7, Y5N ONE (11:08)
[2019-05-18] MEDS: MULTIVITAMINS (DAILY MVI) TABLET (FP) PO SCH (11:09)
[2019-05-18] MEDS: METOPROLOL TARTRATE 50 MG TABLET (FP) PO SCH ×2 (11:09→21:41)
[2019-05-18] MEDS: ASPIRIN COATED 81 MG TABLET.EC PO SCH (11:13)
--- NOTE | 2019-05-18 11:47 | EKG ---
Test Reason : Blood Pressure : / mmHG Vent. Rate : 057 BPM Atrial Rate : 057 BPM P-R Int : 172 ms QRS Dur : 096 ms QT Int : 454 ms P-R-T Axes : 017 -08 -04 degrees QTc Int : 441 ms SINUS BRADYCARDIA OTHERWISE NORMAL ECG WHEN COMPARED WITH ECG OF 17-MAY-2019 23:32, NO SIGNIFICANT CHANGE WAS FOUND Confirmed by MEHDI ZELAYA MD ([id number]) on 05/18/2019 11:46:29 AM Referred By: Confirmed By:MEHDI ZELAYA MD
--- NOTE | 2019-05-18 12:04 | CON.CARD ---
Cardiology Consult (text) - Consultation Consultation Note: cc: right weakness, slurred speech hpi: 68 m hx etoh abuse, htn, hld, pericardial effusion s/p drainage 20+years ago, here with right sided weakness, slurred speech. No cp sob palps dizzy loc pnd orthopnea le edema. pmh: per hpi psh: knee surgery social +etoh, no tob fam: no premature cad, scd ros:per hpi; all others nl meds: Home Medications Medication Instructions Recorded Aspirin [ASA -] 81 mg PO ONCE 08/08/14 Fenofibrate Nanocrystallized 145 mg PO DAILY 08/08/14 [Tricor] Losartan/Hydrochlorothiazide 1 each PO DAILY 08/08/14 [Losartan-Hctz 50-12.5 mg Tab] Metoprolol Tartrate [Lopressor -] 100 mg PO BID 08/08/14 [place]-3 Acid Ethyl Esters [Lovaza 1 gm PO BID 08/08/14 -] Multivitamins [Tab-A-Vit -] 1 tab PO DAILY 12/11/18 Hydrocodone/Acetaminophen 1 - 2 tab PO TID PRN #30 tablet 12/28/18 [Hydrocodone-Acetamin 5-325 mg] MDD 6 pe: Vital Signs Period Temp Pulse Resp BP Sys/Cunningham Pulse Ox Last 24 Hr 97.2 F-98.5 F 57-67 16-20 157-193/79-97 96-100 nad no jvd rrr s1s2 no mrg cta bl nl eff abd nt nd pos bs no jaundice diaphoresis pos dp pt no carotid bruits aao3 no le e/c/c Laboratory Last Values WBC 5.9 K/mm3 (4.0-10.0) 05/18/19 05:35 RBC 4.87 M/mm3 (4.00-5.60) 05/18/19 05:35 Hgb 14.6 GM/dL (11.7-16.9) 05/18/19 05:35 Hct 42.6 % (35.4-49) 05/18/19 05:35 MCV 87.4 fl (80-96) 05/18/19 05:35 MCH 29.9 pg (25.7-33.7) 05/18/19 05:35 MCHC 34.2 g/dl (32.0-35.9) 05/18/19 05:35 RDW 14.4 % (11.9-15.9) 05/18/19 05:35 Plt Count 164 K/MM3 (134-434) 05/18/19 05:35 MPV 7.8 fl (7.5-11.1) 05/18/19 05:35 Absolute Neuts (auto) 3.7 K/mm3 (1.5-8.0) 05/18/19 05:35 Neutrophils % 62.9 % (42.8-82.8) 05/18/19 05:35 Lymphocytes % 25.1 % (8-40) D 05/18/19 05:35 Monocytes % 8.2 % (3.8-10.2) 05/18/19 05:35 Eosinophils % 3.2 % (0-4.5) 05/18/19 05:35 Basophils % 0.6 % (0-2.0) 05/18/19 05:35 Nucleated RBC % 0 % (0-0) 05/18/19 05:35 PT with INR 11.60 SEC (9.7-13.0) 05/17/19 14:20 INR 0.98 (0.83-1.09) 05/17/19 14:20 Sodium 143 mmol/L (136-145) 05/18/19 05:35 Potassium 3.2 mmol/L (3.5-5.1) L 05/18/19 05:35 Chloride 108 mmol/L (98-107) H 05/18/19 05:35 Carbon Dioxide 30 mmol/L (21-32) 05/18/19 05:35 Anion Gap 5 MMOL/L (8-16) L 05/18/19 05:35 BUN 15.9 mg/dL (7-18) 05/18/19 05:35 Creatinine 0.9 mg/dL (0.55-1.3) 05/18/19 05:35 Est GFR (CKD-EPI)AfAm 102.07 05/18/19 05:35 Est GFR (CKD-EPI)NonAf 88.07 05/18/19 05:35 Random Glucose 98 mg/dL (74-106) 05/18/19 05:35 Hemoglobin A1c % 5.7 % (4.2-6.3) 05/18/19 05:35 Calcium 8.5 mg/dL (8.5-10.1) 05/18/19 05:35 Magnesium 2.1 mg/dL (1.8-2.4) 05/18/19 05:35 Total Bilirubin 1.0 mg/dL (0.2-1) 05/18/19 05:35 AST 25 U/L (15-37) 05/18/19 05:35 ALT 38 U/L (13-61) 05/18/19 05:35 Alkaline Phosphatase 45 U/L (45-117) 05/18/19 05:35 Creatine Kinase 99 U/L (26-308) 05/17/19 14:20 Troponin I < 0.02 ng/ml (0.00-0.05) 05/17/19 14:20 Total Protein 6.8 g/dl (6.4-8.2) 05/18/19 05:35 Albumin 3.5 g/dl (3.4-5.0) 05/18/19 05:35 Triglycerides 207 mg/dL (0-150) H 05/18/19 05:35 Cholesterol 170 mg/dL (50-200) 05/18/19 05:35 Total LDL Cholesterol 107 mg/dL (5-100) H 05/18/19 05:35 HDL Cholesterol 40 mg/dL (40-60) 05/18/19 05:35 TSH 2.02 uIU/ml (0.358-3.74) 05/18/19 05:35 Urine Color Yellow 05/17/19 20:15 Urine Appearance Clear 05/17/19 20:15 Urine pH 5.5 (5.0-8.0) D 05/17/19 20:15 Ur Specific Boyd 1.053 (1.010-1.035) H 05/17/19 20:15 Urine Protein Negative (NEGATIVE) 05/17/19 20:15 Urine Glucose (UA) Negative (NEGATIVE) 05/17/19 20:15 Urine Ketones Negative (NEGATIVE) 05/17/19 20:15 Urine Blood Negative (NEGATIVE) 05/17/19 20:15 Urine Nitrite Negative (NEGATIVE) 05/17/19 20:15 Urine Bilirubin Negative (NEGATIVE) 05/17/19 20:15 Urine Urobilinogen 1.0 mg/dL (0.2-1.0) 05/17/19 20:15 Ur Leukocyte Esterase Negative (NEGATIVE) 05/17/19 20:15 tele: sr ecg: sr nl intervals no ischemic changes a/p: 68 m hx etoh abuse, htn, hld, pericardial effusion s/p drainage 20+years ago here with right sided weakness, slurred speech. cva: -neuro following, switched to aggrenox -cont statin, bp control -echo pending -cont tele htn: -cont bb, arb, hctz hld: -cont statin pericardial eff: -remote hx s/p drainage 20+ years ago -will check updated echo
--- NOTE | 2019-05-18 14:33 | ECHO ---
Name: RAFFY BILLY Exam:Adult Echocardiogram Study Date: 05/18/2019 10:03 AM Age: 68 yrs Reason For Study: CVA Height: 70 in Weight: 223 lb BSA: 2.2 m2 MMode/2D Measurements & Calculations IVSd: 1.4 cm Ao root diam: 3.8 cm LVIDd: 4.5 cm LA dimension: 3.5 cm LVIDs: 2.9 cm LVPWd: 1.1 cm EDV(Teich): 91.7 ml LVOT diam: 2.0 cm ESV(Teich): 31.5 ml LAV (MOD-bp): 82.3 ml Doppler Measurements & Calculations MV E max lj: 77.1 cm/sec Ao V2 max: 137.1 cm/sec MV A max lj: 78.6 cm/sec Ao max P.5 mmHg MV E/A: 0.98 MV dec time: 0.22 sec MARCELLA(V,D): 2.2 cm2 LV V1 max P.7 mmHg TR max lj: 218.5 cm/sec LV V1 max: 96.0 cm/sec TR max P.1 mmHg PA V2 max: 80.1 cm/sec Med Peak E' Lj: 5.7 cm/sec PA max P.6 mmHg Med E/e': 13.6 Lat Peak E' Lj: 8.5 cm/sec Lat E/e': 9.1 PI Vmax: 188.7 cm/sec Procedure A complete two-dimensional transthoracic echocardiogram was performed (2D, M-mode, Doppler and color flow Doppler). Left Ventricle The left ventricular size, thickness and function are normal. The left ventricular ejection fraction is normal. Ejection Fraction = 60-65%. Right Ventricle The right ventricle is not well visualized. The right ventricle is grossly normal size. The right steve tricular systolic function is grossly normal. Atria The left atrium is mildly dilated. Right atrial size is normal. Mitral Valve There is no mitral regurgitation noted. Tricuspid Valve No tricuspid regurgitation. There was insufficient TR detected to calculate RV systolic pressure. Aortic Valve The aortic valve is trileaflet. No hemodynamically significant valvular aortic stenosis. No aortic regurgitation is present. Pulmonic Valve Trace pulmonic valvular regurgitation. Great Vessels Mild aortic root dilatation. Pericardium/Pleura There is no pericardial effusion. Interpretation Summary The left ventricular size, thickness and function are normal The right ventricle is grossly normal size. The right ventricular systolic function is grossly normal. The left atrium is mildly dilated. Trace pulmonic valvular regurgitation. Mild aortic root dilatation. MD Ashwin Reis 05/18/2019 02:33 PM
[2019-05-18 15:51] VITALS: BMI 32.0
--- NOTE | 2019-05-18 16:25 | PN ---
Progress Note, Physician Chief Complaint: denies headache, denies shortness of breath History of Present Illness: Patient is a 68 year old male with a significant past medical history of alcoholism (last drink yesterday per ), hypertension, hyperlipidemia and GERD. He presents to the ED after he was noted to have weakness to his right arm and right leg while at the chiropractor's office. Patient states that he woke up this morning with right sided weakness and noted that his speech was slurred. He was told by chiropractor to come to the ED immediately for a possible stroke. Patient is having difficulty ambulating and his right leg is weak. He reports not feeling well since Tuesday of this week but did not seek medical attention. Denies fevers, chills, lightheadedness, dizziness, headache, numbness and tingling. He denies any past withdrawal seizure, he states he last drink was last Tuesday and denies daily drinking, but drinks heavy (beers) when he does drink. Imaging: Head CT/non contrast 05/17/19: left area of infarct. moderate atropy and mid to moderate chronic microvascular ischemic disease changes sclerotic density in the left side of the frontal sinus measuring 1.3 x 0.8 cm consistent with an osteoma. Echo 05/18/2019: left atrium mildly dilated, trace pulmonic valve regurg. EKG: sinus bradycardia rate 50s no acute ST-T wave changes normal intervals and axis. 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 infarct measures apx 13mm x 6.7 cm. supratentorial periventricular subcortical white matter microangiopathic ischemic changes. - Current Medication List Current Medications: Active Medications Acetaminophen (Tylenol -) 650 mg PO Q6H PRN PRN Reason: HEADACHE Last Admin: 05/17/19 23:30 Dose: 650 mg Aspirin (Ecotrin -) 81 mg PO DAILY [facility] Last Admin: 05/18/19 11:13 Dose: 81 mg Atorvastatin Calcium (Lipitor -) 80 mg PO HS [facility] HCTZ/Losartan Potassium (Hyzaar -) 1 tab PO DAILY [facility] Last Admin: 05/18/19 11:44 Dose: 1 tab Sodium Chloride (Normal Saline -) 1,000 mls @ 42 mls/hr IV ASDIR [facility] Last Admin: 05/17/19 14:00 Dose: 42 mls/hr Lorazepam (Ativan Injection -) 1 mg IVPUSH Q8H PRN PRN Reason: WITHDRAWAL(CONT SUBST) Metoprolol Tartrate (Lopressor -) 100 mg PO BID [facility] Last Admin: 05/18/19 11:09 Dose: 100 mg Multivitamins/Minerals/Vitamin C (Tab-A-Vit -) 1 tab PO DAILY [facility] Last Admin: 05/18/19 11:09 Dose: 1 tab - Objective Vital Signs: Vital Signs Temperature 98.2 F 05/18/19 10:00 Pulse Rate 58 L 05/18/19 10:00 Respiratory Rate 18 05/18/19 10:00 Blood Pressure 193/85 H 05/18/19 10:00 O2 Sat by Pulse Oximetry (%) 97 05/18/19 09:00 Constitutional: Yes: Well Nourished, No Distress HENT: Yes: WNL, Pharyngeal Erythema Cardiovascular: Yes: Regular Rate and Rhythm Respiratory: Yes: CTA Bilaterally Gastrointestinal: Yes: Normal Bowel Sounds, Soft ...Rectal Exam: Yes: Deferred Genitourinary: Yes: WNL Edema: No Peripheral Pulses WNL: Yes Integumentary: Yes: WNL Neurological: Yes: WNL, Alert, Oriented ...Motor Strength: RUE, RLE (right upper and lower ext weakness.) Psychiatric: Yes: WNL, Alert, Oriented Labs: CBC, BMP 05/18/19 05:35 05/18/19 05:35 INR, PTT INR 0.98 (0.83-1.09) 05/17/19 14:20 - ....Imaging Cat Scan: Image Reviewed MRI: Image Reviewed EKG: Image Reviewed Problem List - Problems (1) Stroke Assessment/Plan: Acute stroke per head CT. Neuro consulted and following. recommendations for sub acute rehab. monitor on tele continue with - tele/stroke monitoring - neuro checks q4 - physical therapy - lipitor 80 - asa 81mg daily - SCDs - lipid panel noted - close monitoring of BP - swallow eval recommendations noted and appreciated. Code(s): I63.9 - CEREBRAL INFARCTION, UNSPECIFIED Qualifiers: CVA mechanism: occlusion Precerebral and cerebral artery: unspecified cerebral artery Qualified Code(s): I63.50 - Cerebral infarction due to unspecified occlusion or stenosis of unspecified cerebral artery (2) ETOH abuse Assessment/Plan: no acute signs of withdrawal ativan prn monitor for worsening signs of withdrawal Code(s): F10.10 - ALCOHOL ABUSE, UNCOMPLICATED (3) Hypertension Assessment/Plan: on hyzaar and metoprolol will increase losartan to 100. monitor Code(s): I10 - ESSENTIAL (PRIMARY) HYPERTENSION (4) DVT prophylaxis Assessment/Plan: SCDs bilaterally Code(s): Z29.9 - ENCOUNTER FOR PROPHYLACTIC MEASURES, UNSPECIFIED Visit type - Emergency Visit Emergency Visit: Yes ED Registration Date: 05/17/19 Care time: The patient presented to the Emergency Department on the above date and was hospitalized for further evaluation of their emergent condition. - New Patient This patient is new to me today: No - Critical Care Critical Care patient: No - Discharge Referral Referred to [facility] Med P.C[facility] No CIWA Score Nausea/Vomitin-No Nausea/No Vomiting Muscle Tremors: None Anxiety: 1-Mildly Anxious Agitation: 0-Normal Activity Paroxysmal Sweats: No Perspiration Orientation: 0-Oriented Tacttile Disturbances: 0-None Auditory Disturbances: 0-None Visual Disturbances: 0-None Headache: 1-Very Mild CIWA-Ar Total Score: 2 - Admission Criteria OASAS Guidelines: Admission for Medically Managed Detox: Requires at least one of the followin. CIWA greater than 12 2. Seizures within the past 24 hours 3. Delirium tremens within the past 24 hours 4. Hallucinations within the past 24 hours 5. Acute intervention needed for co occurring medical disorder 6. Acute intervention needed for co occurring psychiatric disorder 7. Severe withdrawal that cannot be handled at a lower level of care (continued vomiting, continued diarrhea, abnormal vital signs) requiring intravenous medication and/or fluids 8.
[2019-05-18] MEDS ORDERED: LOSARTAN POTASSIUM 50 MG TABLET (FP) PO ONE (17:57)
[2019-05-18] MEDS: traZODone HCL 50 MG TABLET (FP) PO SCH (21:40)
[2019-05-18] MEDS: ATORVASTATIN CA 80 MG TABLET (FP) PO SCH (21:41)
[2019-05-19 07:14] LABS: BASO % 0.4 % (0-2.0); EOS % 2.1 % (0-4.5); HEMATOCRIT 42.5 % (35.4-49); HEMOGLOBIN 14.9 GM/dL (11.7-16.9); LYMPH % 19.1 % (8-40); MCH 30.4 pg (25.7-33.7); MEAN CELL VOLUME 86.9 fl (80-96); MEAN PLT VOLUME 7.9 fl (7.5-11.1); MONO % 8.5 % (3.8-10.2); NEUT % 69.9 % (42.8-82.8); PLATELET COUNT 163 K/MM3 (134-434); RBC 4.89 M/mm3 (4.00-5.60); RDW 14.5 % (11.9-15.9); WHITE BLOOD COUNT 6.8 K/mm3 (4.0-10.0)
[2019-05-19 07:20] LABS: ALBUMIN 3.6 g/dl (3.4-5.0); BILIRUBIN,TOTAL 0.9 mg/dL (0.2-1); BLOOD UREA NITROGEN 14.4 mg/dL (7-18); CALCIUM 8.8 mg/dL (8.5-10.1); MAGNESIUM 2.3 mg/dL (1.8-2.4); TOT PROT 6.5 g/dl (6.4-8.2)
[2019-05-19] MEDS ORDERED: PT OWN MED DRAWER 7, Y5N ONE (09:43)
[2019-05-19] MEDS: ASPIRIN COATED 81 MG TABLET.EC PO SCH (09:48)
[2019-05-19] MEDS: MULTIVITAMINS (DAILY MVI) TABLET (FP) PO SCH (09:48)
[2019-05-19] MEDS: HYDROCHLOROTHIAZIDE 12.5 MG CAPSULE (FP) PO SCH (09:48)
[2019-05-19] MEDS: METOPROLOL TARTRATE 50 MG TABLET (FP) PO SCH ×2 (09:48→21:26)
[2019-05-19] MEDS: LOSARTAN POTASSIUM 50 MG TABLET (FP) PO SCH (09:49)
--- NOTE | 2019-05-19 10:50 | PN ---
Progress Note (short form) - Note Progress Note: s: no chest pain, palps, dizziness, dyspnea Current Medications Acetaminophen (Tylenol -) 650 mg PO Q6H PRN PRN Reason: HEADACHE Last Admin: 05/17/19 23:30 Dose: 650 mg Aspirin (Ecotrin -) 81 mg PO DAILY [facility] Last Admin: 05/19/19 09:48 Dose: 81 mg Atorvastatin Calcium (Lipitor -) 80 mg PO HS [facility] Last Admin: 05/18/19 21:41 Dose: 80 mg Hydrochlorothiazide (Hctz -) 12.5 mg PO DAILY [facility] Last Admin: 05/19/19 09:48 Dose: 12.5 mg Lorazepam (Ativan Injection -) 1 mg IVPUSH Q8H PRN PRN Reason: WITHDRAWAL(CONT SUBST) Losartan Potassium (Cozaar -) 100 mg PO DAILY [facility] Last Admin: 05/19/19 09:49 Dose: 100 mg Metoprolol Tartrate (Lopressor -) 100 mg PO BID [facility] Last Admin: 05/19/19 09:48 Dose: 100 mg Multivitamins/Minerals/Vitamin C (Tab-A-Vit -) 1 tab PO DAILY [facility] Last Admin: 05/19/19 09:48 Dose: 1 tab Trazodone HCl (Desyrel -) 200 mg PO HS [facility] Last Admin: 05/18/19 21:40 Dose: 200 mg Vital Signs Period Temp Pulse Resp BP Sys/Cunningham Pulse Ox Last 24 Hr 97.7 F-97.8 F 55-69 15-19 167-193/69-90 97 nad no jvd rrr s1s2 no mrg cta bl nl eff abd nt nd pos bs no jaundice diaphoresis pos dp pt no carotid bruits aao3 no le e/c/c tele: sr ecg: sr nl intervals no ischemic changes a/p: 68 m hx etoh abuse, htn, hld, pericardial effusion s/p drainage 20+years ago here with right sided weakness, slurred speech. cva: -neuro following, switched to aggrenox -cont statin, bp targets per neuro -echo nl LV/RV function -cont tele htn: -cont bb, arb, hctz hld: -cont statin pericardial eff: -remote hx s/p drainage 20+ years ago -no effusion on echo here
--- NOTE | 2019-05-19 11:09 | CONSULT ---
Consult - text type - Consultation Consultation Note: Neurology - Admission Chief Complaint: right sided weakness History of Present Illness: Patient is a 68 year old male with a significant past medical history of alcoholism (last drink day before admission as per ), hypertension, hyperlipidemia and GERD. He presents to the ED yesterday after he was noted to have weakness to his right arm and right leg while at the chiropractor's office. Patient states that he woke up this morning with right sided weakness and noted that his speech was slurred. He was told by chiropractor to come to the ED immediately for a possible stroke. Patient is having difficulty ambulating and his right leg is weak. He reports not feeling well since Tuesday of this week but did not seek medical attention until yesterday. Denies fevers, chills, lightheadedness, dizziness, headache, numbness and tingling. He denies any past withdrawal seizure, he states he last drink was last Tuesday and denies daily drinking, but drinks heavy (beers) when he does drink. Head CT compeleted - left area infract with moderate atropy and mid to moderate chronic microvascular ischemic disease changes sclerotic densithy in the left side of the frontal sinus measuring 1.3 x 0.8 cm consistent with an osteoma. Head and Nect CTA completed - mild to moderate focal basilar artery stenosis at the junction of the lower and middle thirds. Brain MRI completed - nonhemorrhagic subacute infarct in the left anterior parmedian [place] measureing 13mmx6.7mm. Carotid Doppler completed, report pending. History Source: Patient Limitations to Obtaining History: Clinical Condition, Physical Impairment, Poor Historian - Past Medical History Cardiovascular: Yes: HTN Gastrointestinal: Yes: Other Psych: Yes: Addictions, Anxiety Musculoskeletal: Yes: Chronic low back pain - Past Surgical History Additional Past Surgical History: right tenosynovititis 12/2018 - Smoking History Smoking history: Never smoked Have you smoked in the past 12 months: No - Alcohol/Substance Use Hx Alcohol Use: Yes Number of Drinks Daily: 6 Date of Last Use: 05/13/19 - Social History Usual Living Arrangement: Yes: With Spouse ADL: Independent History of Recent Travel: No Home Medications - Allergies Allergies/Adverse Reactions: Allergies Allergy/AdvReac Type Severity Reaction Status Date / Time No Known Drug Allergies Allergy Verified 05/17/19 13:39 - Home Medications Home Medications: Ambulatory Orders Aspirin [ASA -] 81 mg PO ONCE 08/08/14 Fenofibrate Nanocrystallized [Tricor] 145 mg PO DAILY 08/08/14 Losartan/Hydrochlorothiazide [Losartan-Hctz 50-12.5 mg Tab] 1 each PO DAILY Metoprolol Tartrate [Lopressor -] 100 mg PO BID 08/08/14 [place]-3 Acid Ethyl Esters [Lovaza -] 1 gm PO BID 08/08/14 Multivitamins [Tab-A-Vit -] 1 tab PO DAILY 12/11/18 Hydrocodone/Acetaminophen [Hydrocodone-Acetamin 5-325 mg] 1 - 2 tab PO TID PRN # 30 tablet MDD 6 12/28/18 Family Disease History - Family Disease History Family History: Unable to Obtain Review of Systems - Review of Systems Constitutional: reports: Malaise, Weakness Eyes: reports: No Symptoms HENT: reports: Difficult Swallowing Neck: reports: Pain on Movement Cardiovascular: reports: No Symptoms Respiratory: reports: No Symptoms Gastrointestinal: reports: No Symptoms Genitourinary: reports: No Symptoms Breasts: reports: No Symptoms Reported Musculoskeletal: reports: Muscle Weakness Integumentary: reports: No Symptoms Neurological: reports: Change in Speech, Headache, Incoordination, Numbness, Unsteady Gait, Weakness Psychiatric: reports: Anxiety Physical Examination Vital Signs: Vital Signs Temperature 97.8 F 05/19/19 10:00 Pulse Rate 68 05/19/19 10:00 Respiratory Rate 18 05/19/19 10:00 Blood Pressure 178/90 H 05/19/19 10:00 O2 Sat by Pulse Oximetry (%) 97 05/18/19 21:00 Constitutional: Yes: No Distress, Calm Eyes: Yes: WNL HENT: Yes: Atraumatic Neck: Yes: Supple Cardiovascular: Yes: Regular Rate and Rhythm Respiratory: Yes: CTA Bilaterally Gastrointestinal: Yes: Abdomen, Obese ...Rectal Exam: Yes: Deferred Musculoskeletal: Yes: WNL, Back Pain Extremities: Yes: WNL Edema: No Integumentary: Yes: WNL Neurological: Yes: Alert, Oriented ...Motor Strength: WNL Psychiatric: Yes: WNL Labs: CBCD WBC 6.8 K/mm3 (4.0-10.0) 05/19/19 05:10 RBC 4.89 M/mm3 (4.00-5.60) 05/19/19 05:10 Hgb 14.9 GM/dL (11.7-16.9) 05/19/19 05:10 Hct 42.5 % (35.4-49) 05/19/19 05:10 MCV 86.9 fl (80-96) 05/19/19 05:10 MCHC 35.0 g/dl (32.0-35.9) 05/19/19 05:10 RDW 14.5 % (11.9-15.9) 05/19/19 05:10 Plt Count 163 K/MM3 (134-434) 05/19/19 05:10 MPV 7.9 fl (7.5-11.1) 05/19/19 05:10 CMP Sodium 143 mmol/L (136-145) 05/19/19 05:10 Potassium 4.0 mmol/L (3.5-5.1) 05/19/19 05:10 Chloride 108 mmol/L (98-107) H 05/19/19 05:10 Carbon Dioxide 30 mmol/L (21-32) 05/19/19 05:10 Anion Gap 5 MMOL/L (8-16) L 05/19/19 05:10 BUN 14.4 mg/dL (7-18) 05/19/19 05:10 Creatinine 1.0 mg/dL (0.55-1.3) 05/19/19 05:10 Random Glucose 97 mg/dL (74-106) 05/19/19 05:10 Calcium 8.8 mg/dL (8.5-10.1) 05/19/19 05:10 Total Bilirubin 0.9 mg/dL (0.2-1) 05/19/19 05:10 AST 23 U/L (15-37) 05/19/19 05:10 ALT 34 U/L (13-61) 05/19/19 05:10 Alkaline Phosphatase 43 U/L (45-117) L 05/19/19 05:10 Total Protein 6.5 g/dl (6.4-8.2) 05/19/19 05:10 Albumin 3.6 g/dl (3.4-5.0) 05/19/19 05:10 CARDIAC ENZYMES Creatine Kinase 99 U/L (26-308) 05/17/19 14:20 Troponin I < 0.02 ng/ml (0.00-0.05) 05/18/19 11:41 Imaging: Head CT/non contrast 05/17/19: left area of infarct. moderate atropy and mid to moderate chronic microvascular ischemic disease changes sclerotic densithy in the left side of the frontal sinus measuring 1.3 x 0.8 cm consistent with an osteoma. Head/Neck CTA: mild to moderate focal basilar artery stenosis at the junction of the lower and middle thirds. Brain MRI: nonhemorrhagic subacute infarct in the left anterior parmedian [place] measureing 13mmx6.7mm. Carotid Doppler: completed, report pending. Plan/Assessment: Patient is a 68 year old male with a significant past medical history of alcoholism (last drink day before admission as per ), hypertension, hyperlipidemia and GERD. He presents to the ED yesterday after he was noted to have weakness to his right arm and right leg while at the chiropractor's office. Patient states that he woke up this morning with right sided weakness and noted that his speech was slurred. He was told by chiropractor to come to the ED immediately for a possible stroke. Patient is having difficulty ambulating and his right leg is weak. He reports not feeling well since Tuesday of this week but did not seek medical attention until yesterday. Denies fevers, chills, lightheadedness, dizziness, headache, numbness and tingling. He denies any past withdrawal seizure, he states he last drink was last Tuesday and denies daily drinking, but drinks heavy (beers) when he does drink. Head CT compeleted - left area infract with moderate atropy and mid to moderate chronic microvascular ischemic disease changes sclerotic densithy in the left side of the frontal sinus measuring 1.3 x 0.8 cm consistent with an osteoma. Head and Nect CTA completed - mild to moderate focal basilar artery stenosis at the junction of the lower and middle thirds. Brain MRI completed - nonhemorrhagic subacute infarct in the left anterior parmedian [place] measureing 13mmx6.7mm. Carotid Doppler completed, report pending.
--- NOTE | 2019-05-19 11:45 | PN ---
Progress Note (short form) - Note Progress Note: Neurology - Admission Chief Complaint: right sided weakness History of Present Illness: Patient is a 68 year old male with a significant past medical history of alcoholism (last drink day before admission as per ), hypertension, hyperlipidemia and GERD. He presents to the ED yesterday after he was noted to have weakness to his right arm and right leg while at the chiropractor's office. Patient states that he woke up this morning with right sided weakness and noted that his speech was slurred. He was told by chiropractor to come to the ED immediately for a possible stroke. Patient is having difficulty ambulating and his right leg is weak. He reports not feeling well since Tuesday of this week but did not seek medical attention until yesterday. Denies fevers, chills, lightheadedness, dizziness, headache, numbness and tingling. He denies any past withdrawal seizure, he states he last drink was last Tuesday and denies daily drinking, but drinks heavy (beers) when he does drink. Head CT compeleted - left area infract with moderate atropy and mid to moderate chronic microvascular ischemic disease changes sclerotic densithy in the left side of the frontal sinus measuring 1.3 x 0.8 cm consistent with an osteoma. Head and Nect CTA completed - mild to moderate focal basilar artery stenosis at the junction of the lower and middle thirds. Brain MRI completed - nonhemorrhagic subacute infarct in the left anterior parmedian [place] measureing 13mmx6.7mm. Carotid Doppler completed, report pending. Reports taking ASA 81mg at home with good compliance, discussed need to increase to aggrenox as patient with ASA failure and he was in agreement. Speech and RUE prop attendant essentially the same, he is interested in rehab at [place], in agreement with this. Active Medications Acetaminophen (Tylenol -) 650 mg PO Q6H PRN PRN Reason: HEADACHE Last Admin: 05/17/19 23:30 Dose: 650 mg Aspirin (Ecotrin -) [address] [facility] Last Admin: 05/19/19 09:48 Dose: 81 mg Atorvastatin Calcium (Lipitor -) [address] [facility] Last Admin: 05/18/19 21:41 Dose: 80 mg Hydrochlorothiazide (Hctz -) 12.[address] [facility] Last Admin: 08/24/19 09:48 Dose: 12.5 mg Lorazepam (Ativan Injection -) 1 mg IVPUSH Q8H PRN PRN Reason: WITHDRAWAL(CONT SUBST) Losartan Potassium (Cozaar -) [address] [facility] Last Admin: 05/19/19 09:49 Dose: 100 mg Metoprolol Tartrate (Lopressor -) [address] [facility] Last Admin: 05/19/19 09:48 Dose: 100 mg Multivitamins/Minerals/Vitamin C (Tab-A-Vit -) [address] [facility] Last Admin: 05/19/19 09:48 Dose: 1 tab Trazodone HCl (Desyrel -) [address] [facility] Last Admin: 05/18/19 21:40 Dose: 200 mg Physical Examination Vital Signs: Vital Signs Temperature 97.8 F 05/19/19 10:00 Pulse Rate 68 05/19/19 10:00 Respiratory Rate 18 05/19/19 10:00 Blood Pressure 178/90 H 05/19/19 10:00 O2 Sat by Pulse Oximetry (%) 97 05/18/19 21:00 Constitutional: Yes: No Distress, Calm Eyes: Yes: WNL HENT: Yes: Atraumatic Neck: Yes: Supple Cardiovascular: Yes: Regular Rate and Rhythm Respiratory: Yes: CTA Bilaterally Gastrointestinal: Yes: Abdomen, Obese ...Rectal Exam: Yes: Deferred Musculoskeletal: Yes: WNL, Back Pain Extremities: Yes: WNL Edema: No Integumentary: Yes: WNL Neurological: Awake, alert, RUE prop attendant 4/5, speech slurred, RLE 4+/5, L sided strenght intact, sensory equal CBCD WBC 6.8 K/mm3 (4.0-10.0) 05/19/19 05:10 RBC 4.89 M/mm3 (4.00-5.60) 05/19/19 05:10 Hgb 14.9 GM/dL (11.7-16.9) 05/19/19 05:10 Hct 42.5 % (35.4-49) 05/19/19 05:10 MCV 86.9 fl (80-96) 05/19/19 05:10 MCHC 35.0 g/dl (32.0-35.9) 05/19/19 05:10 RDW 14.5 % (11.9-15.9) 05/19/19 05:10 Plt Count 163 K/MM3 (134-434) 05/19/19 05:10 MPV 7.9 fl (7.5-11.1) 05/19/19 05:10 CMP Sodium 143 mmol/L (136-145) 05/19/19 05:10 Potassium 4.0 mmol/L (3.5-5.1) 05/19/19 05:10 Chloride 108 mmol/L (98-107) H 05/19/19 05:10 Carbon Dioxide 30 mmol/L (21-32) 05/19/19 05:10 Anion Gap 5 MMOL/L (8-16) L 05/19/19 05:10 BUN 14.4 mg/dL (7-18) 05/19/19 05:10 Creatinine 1.0 mg/dL (0.55-1.3) 05/19/19 05:10 Random Glucose 97 mg/dL (74-106) 05/19/19 05:10 Calcium 8.8 mg/dL (8.5-10.1) 05/19/19 05:10 Total Bilirubin 0.9 mg/dL (0.2-1) 05/19/19 05:10 AST 23 U/L (15-37) 05/19/19 05:10 ALT 34 U/L (13-61) 05/19/19 05:10 Alkaline Phosphatase 43 U/L (45-117) L 05/19/19 05:10 Total Protein 6.5 g/dl (6.4-8.2) 05/19/19 05:10 Albumin 3.6 g/dl (3.4-5.0) 05/19/19 05:10 CARDIAC ENZYMES Creatine Kinase 99 U/L (26-308) 05/17/19 14:20 Troponin I < 0.02 ng/ml (0.00-0.05) 05/18/19 11:41 Imaging: Head CT/non contrast 05/17/19: left area of infarct. moderate atropy and mid to moderate chronic microvascular ischemic disease changes sclerotic densithy in the left side of the frontal sinus measuring 1.3 x 0.8 cm consistent with an osteoma. Head/Neck CTA: mild to moderate focal basilar artery stenosis at the junction of the lower and middle thirds. Brain MRI: nonhemorrhagic subacute infarct in the left anterior parmedian [place] measureing 13mmx6.7mm. Carotid Doppler: completed, report pending. Plan/Assessment: Patient is a 68 year old male with a significant past medical history of alcoholism (last drink day before admission as per ), hypertension, hyperlipidemia and GERD. He presents to the ED yesterday after he was noted to have weakness to his right arm and right leg while at the chiropractor's office. Patient states that he woke up this morning with right sided weakness and noted that his speech was slurred. He was told by chiropractor to come to the ED immediately for a possible stroke. Patient is having difficulty ambulating and his right leg is weak. He reports not feeling well since Tuesday of this week but did not seek medical attention until yesterday. Denies fevers, chills, lightheadedness, dizziness, headache, numbness and tingling. He denies any past withdrawal seizure, he states he last drink was last Tuesday and denies daily drinking, but drinks heavy (beers) when he does drink. Head CT compeleted - left area infract with moderate atropy and mid to moderate chronic microvascular ischemic disease changes sclerotic densithy in the left side of the frontal sinus measuring 1.3 x 0.8 cm consistent with an osteoma. Head and Nect CTA completed - mild to moderate focal basilar artery stenosis at the junction of the lower and middle thirds. Brain MRI completed - nonhemorrhagic subacute infarct in the left anterior parmedian [place] measureing 13mmx6.7mm. Carotid Doppler completed, report pending. Patient put on high dose statin, can reduce as outpatient if needed on repeat LDL evaluation. Reports taking ASA 81mg at home with good compliance, discussed need to increase to aggrenox as patient with ASA failure and he was in agreement. Speech and RUE prop attendant essentially the same, he is interested in rehab at [place], in agreement with this.
--- NOTE | 2019-05-19 18:13 | PN ---
Progress Note, Physician Chief Complaint: denies headache, denies shortness of breath History of Present Illness: Patient is a 68 year old male with a significant past medical history of alcoholism (last drink yesterday per ), hypertension, hyperlipidemia and GERD. He presents to the ED after he was noted to have weakness to his right arm and right leg while at the chiropractor's office. Patient states that he woke up this morning with right sided weakness and noted that his speech was slurred. He was told by chiropractor to come to the ED immediately for a possible stroke. Patient is having difficulty ambulating and his right leg is weak. He reports not feeling well since Tuesday of this week but did not seek medical attention. Denies fevers, chills, lightheadedness, dizziness, headache, numbness and tingling. He denies any past withdrawal seizure, he states he last drink was last Tuesday and denies daily drinking, but drinks heavy (beers) when he does drink. Imaging: Head CT/non contrast 05/17/19: left area of infarct. moderate atropy and mid to moderate chronic microvascular ischemic disease changes sclerotic density in the left side of the frontal sinus measuring 1.3 x 0.8 cm consistent with an osteoma. Echo 05/18/2019: left atrium mildly dilated, trace pulmonic valve regurg. EKG: sinus bradycardia rate 50s no acute ST-T wave changes normal intervals and axis. 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 infarct measures apx 13mm x 6.7 cm. supratentorial periventricular subcortical white matter microangiopathic ischemic changes. - Current Medication List Current Medications: Active Medications Acetaminophen (Tylenol -) 650 mg PO Q6H PRN PRN Reason: HEADACHE Last Admin: 05/17/19 23:30 Dose: 650 mg Atorvastatin Calcium (Lipitor -) 80 mg PO HS [facility] Last Admin: 05/18/19 21:41 Dose: 80 mg Dipyridamole/Aspirin (Aggrenox -) 1 combo PO BID [facility] Hydrochlorothiazide (Hctz -) 12.5 mg PO DAILY [facility] Last Admin: 05/19/19 09:48 Dose: 12.5 mg Lorazepam (Ativan Injection -) 1 mg IVPUSH Q8H PRN PRN Reason: WITHDRAWAL(CONT SUBST) Losartan Potassium (Cozaar -) 100 mg PO DAILY [facility] Last Admin: 05/19/19 09:49 Dose: 100 mg Metoprolol Tartrate (Lopressor -) 100 mg PO BID [facility] Last Admin: 05/19/19 09:48 Dose: 100 mg Multivitamins/Minerals/Vitamin C (Tab-A-Vit -) 1 tab PO DAILY [facility] Last Admin: 05/19/19 09:48 Dose: 1 tab Trazodone HCl (Desyrel -) 200 mg PO HS [facility] Last Admin: 05/18/19 21:40 Dose: 200 mg - Objective Vital Signs: Vital Signs Temperature 97.4 F L 05/19/19 17:59 Pulse Rate 54 L 05/19/19 17:59 Respiratory Rate 12 05/19/19 17:59 Blood Pressure 177/68 H 05/19/19 17:59 O2 Sat by Pulse Oximetry (%) 98 05/19/19 09:00 Constitutional: Yes: Well Nourished Eyes: Yes: Conjunctiva Clear HENT: Yes: Atraumatic Neck: Yes: Supple Cardiovascular: Yes: Regular Rate and Rhythm Respiratory: Yes: Regular Gastrointestinal: Yes: Normal Bowel Sounds, Soft ...Rectal Exam: Yes: Deferred Musculoskeletal: Yes: WNL Extremities: Yes: WNL Edema: No Labs: CBC, BMP 05/19/19 05:10 05/19/19 05:10 INR, PTT INR 0.98 (0.83-1.09) 05/17/19 14:20 Problem List - Problems (1) Stroke Assessment/Plan: Acute stroke per head CT. Neuro consulted and following. recommendations for acute rehab. monitor on tele continue with - tele/stroke monitoring - neuro checks q4 - physical therapy - lipitor 80 - asa 81mg daily - SCDs - lipid panel noted - close monitoring of BP - swallow eval recommendations noted and appreciated. Code(s): I63.9 - CEREBRAL INFARCTION, UNSPECIFIED Qualifiers: CVA mechanism: occlusion Precerebral and cerebral artery: unspecified cerebral artery Qualified Code(s): I63.50 - Cerebral infarction due to unspecified occlusion or stenosis of unspecified cerebral artery (2) ETOH abuse Assessment/Plan: no acute signs of withdrawal ativan prn monitor for worsening signs of withdrawal Code(s): F10.10 - ALCOHOL ABUSE, UNCOMPLICATED (3) Hypertension Assessment/Plan: on hyzaar and metoprolol will increase losartan to 100. monitor Code(s): I10 - ESSENTIAL (PRIMARY) HYPERTENSION (4) DVT prophylaxis Assessment/Plan: SCDs bilaterally Code(s): Z29.9 - ENCOUNTER FOR PROPHYLACTIC MEASURES, UNSPECIFIED Visit type - Emergency Visit Emergency Visit: Yes ED Registration Date: 05/17/19 Care time: The patient presented to the Emergency Department on the above date and was hospitalized for further evaluation of their emergent condition. - New Patient This patient is new to me today: No - Critical Care Critical Care patient: No - Discharge Referral Referred to [facility] Med [facility] No
[2019-05-19] MEDS: ATORVASTATIN CA 80 MG TABLET (FP) PO SCH (21:25)
[2019-05-19] MEDS: traZODone HCL 50 MG TABLET (FP) PO SCH (21:26)
[2019-05-19] MEDS: ASPIRIN/DIPYRIDAMOLE 25 MG/200 MG CAPSULE PO SCH (21:26)
[2019-05-20] MEDS: ACETAMINOPHEN 325 MG TABLET (FP) PO PRN ×2 (01:12→10:44)
[2019-05-20 06:13] LABS: BASO % 0.4 % (0-2.0); EOS % 0.6 % (0-4.5); HEMATOCRIT 43.9 % (35.4-49); HEMOGLOBIN 15.4 GM/dL (11.7-16.9); LYMPH % 17.4 % (8-40); MCH 30.5 pg (25.7-33.7); MCHC 35.1 g/dl (32.0-35.9); MEAN PLT VOLUME 7.8 fl (7.5-11.1); MONO % 7.7 % (3.8-10.2); NEUT % 73.9 % (42.8-82.8); PLATELET COUNT 171 K/MM3 (134-434); RBC 5.05 M/mm3 (4.00-5.60); RDW 14.5 % (11.9-15.9); WHITE BLOOD COUNT 8.2 K/mm3 (4.0-10.0)
[2019-05-20 06:40] LABS: ALBUMIN 3.5 g/dl (3.4-5.0); BILIRUBIN,TOTAL 0.8 mg/dL (0.2-1); BLOOD UREA NITROGEN 19.5 mg/dL (7-18); CREATININE 1.1 mg/dL (0.55-1.3); MAGNESIUM 2.2 mg/dL (1.8-2.4); POTASSIUM 3.6 mmol/L (3.5-5.1); TOT PROT 6.8 g/dl (6.4-8.2)
[2019-05-20] MEDS ORDERED: PT OWN MED DRAWER 7, Y5N ONE ×2 (10:06→22:07)
[2019-05-20] MEDS: HYDROCHLOROTHIAZIDE 12.5 MG CAPSULE (FP) PO SCH (10:14)
[2019-05-20] MEDS: MULTIVITAMINS (DAILY MVI) TABLET (FP) PO SCH (10:14)
[2019-05-20] MEDS: METOPROLOL TARTRATE 50 MG TABLET (FP) PO SCH ×2 (10:14→22:09)
[2019-05-20] MEDS: LOSARTAN POTASSIUM 50 MG TABLET (FP) PO SCH (10:14)
--- NOTE | 2019-05-20 10:41 | PN ---
Progress Note (short form) - Note Progress Note: Neurology - Admission Chief Complaint: right sided weakness History of Present Illness: Patient is a 68 year old male with a significant past medical history of alcoholism (last drink day before admission as per ), hypertension, hyperlipidemia and GERD. He presents to the ED yesterday after he was noted to have weakness to his right arm and right leg while at the chiropractor's office. Patient states that he woke up this morning with right sided weakness and noted that his speech was slurred. He was told by chiropractor to come to the ED immediately for a possible stroke. Patient is having difficulty ambulating and his right leg is weak. He reports not feeling well since Tuesday of this week but did not seek medical attention until yesterday. Denies fevers, chills, lightheadedness, dizziness, headache, numbness and tingling. He denies any past withdrawal seizure, he states he last drink was last Tuesday and denies daily drinking, but drinks heavy (beers) when he does drink. Head CT compeleted - left area infract with moderate atropy and mid to moderate chronic microvascular ischemic disease changes sclerotic densithy in the left side of the frontal sinus measuring 1.3 x 0.8 cm consistent with an osteoma. Head and Nect CTA completed - mild to moderate focal basilar artery stenosis at the junction of the lower and middle thirds. Brain MRI completed - nonhemorrhagic subacute infarct in the left anterior parmedian [place] measuring 13mmx6.7mm. Carotid Doppler completed, minimal thickening of the common bifurcation without significant stenosis. Reports taking ASA 81mg at home with good compliance, discussed need to increase to aggrenox as patient with ASA failure and he was in agreement; Aggrenox BID ordered. 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 He is interested in rehab at [place], in agreement with this. Previously had rehab there for both knees. Allergies Allergy/AdvReac Type Severity Reaction Status Date / Time No Known Drug Allergies Allergy Verified 05/17/19 13:39 Active Medications Acetaminophen (Tylenol -) 650 mg PO Q6H PRN PRN Reason: HEADACHE Last Admin: 05/20/19 01:12 Dose: 650 mg Atorvastatin Calcium (Lipitor -) 80 mg PO HS [facility] Last Admin: 05/19/19 21:25 Dose: 80 mg Dipyridamole/Aspirin (Aggrenox -) 1 combo PO BID [facility] Last Admin: 05/19/19 21:26 Dose: 1 combo Hydrochlorothiazide (Hctz -) 12.5 mg PO DAILY [facility] Last Admin: 05/20/19 10:14 Dose: 12.5 mg Lorazepam (Ativan Injection -) 1 mg IVPUSH Q8H PRN PRN Reason: WITHDRAWAL(CONT SUBST) Losartan Potassium (Cozaar -) 100 mg PO DAILY [facility] Last Admin: 05/20/19 10:14 Dose: 100 mg Metoprolol Tartrate (Lopressor -) 100 mg PO BID [facility] Last Admin: 05/20/19 10:14 Dose: 100 mg Multivitamins/Minerals/Vitamin C (Tab-A-Vit -) 1 tab PO DAILY [facility] Last Admin: 05/20/19 10:14 Dose: 1 tab Trazodone HCl (Desyrel -) 200 mg PO [facility] Last Admin: 05/19/19 21:26 Dose: 200 mg Physical Examination Vital Signs: Vital Signs Temperature 97.4 F L 05/20/19 06:00 Pulse Rate 58 L 05/20/19 09:00 Respiratory Rate 12 05/20/19 09:00 Blood Pressure 151/88 05/20/19 09:00 O2 Sat by Pulse Oximetry (%) 98 05/19/19 21:00 Constitutional: Yes: No Distress, Calm Eyes: Yes: WNL HENT: Yes: Atraumatic Neck: Yes: Supple Cardiovascular: Yes: Regular Rate and Rhythm Respiratory: Yes: CTA Bilaterally Gastrointestinal: Yes: Abdomen, Obese ...Rectal Exam: Yes: Deferred Musculoskeletal: Yes: WNL, Back Pain Extremities: Yes: WNL Edema: No Integumentary: Yes: WNL Neurological: Awake, alert, RUE brokerage branch manager 4/5, speech slurred, RLE 4+/5, L sided strenght intact, sensory equal CBCD WBC 8.2 K/mm3 (4.0-10.0) 05/20/19 05:20 RBC 5.05 M/mm3 (4.00-5.60) 05/20/19 05:20 Hgb 15.4 GM/dL (11.7-16.9) 05/20/19 05:20 Hct 43.9 % (35.4-49) 05/20/19 05:20 MCV 87.0 fl (80-96) 05/20/19 05:20 MCHC 35.1 g/dl (32.0-35.9) 05/20/19 05:20 RDW 14.5 % (11.9-15.9) 05/20/19 05:20 Plt Count 171 K/MM3 (134-434) 05/20/19 05:20 MPV 7.8 fl (7.5-11.1) 05/20/19 05:20 CMP Sodium 144 mmol/L (136-145) 05/20/19 05:20 Potassium 3.6 mmol/L (3.5-5.1) 05/20/19 05:20 Chloride 109 mmol/L (98-107) H 05/20/19 05:20 Carbon Dioxide 28 mmol/L (21-32) 05/20/19 05:20 Anion Gap 8 MMOL/L (8-16) 05/20/19 05:20 BUN 19.5 mg/dL (7-18) H 05/20/19 05:20 Creatinine 1.1 mg/dL (0.55-1.3) 05/20/19 05:20 Random Glucose 125 mg/dL (74-106) H 05/20/19 05:20 Calcium 9.0 mg/dL (8.5-10.1) 05/20/19 05:20 Total Bilirubin 0.8 mg/dL (0.2-1) 05/20/19 05:20 AST 22 U/L (15-37) 05/20/19 05:20 ALT 32 U/L (13-61) 05/20/19 05:20 Alkaline Phosphatase 47 U/L (45-117) 05/20/19 05:20 Total Protein 6.8 g/dl (6.4-8.2) 05/20/19 05:20 Albumin 3.5 g/dl (3.4-5.0) 05/20/19 05:20 CARDIAC ENZYMES Creatine Kinase 99 U/L (26-308) 05/17/19 14:20 Troponin I < 0.02 ng/ml (0.00-0.05) 05/18/19 11:41 Imaging: Head CT/non contrast 05/17/19: left area of infarct. moderate atropy and mid to moderate chronic microvascular ischemic disease changes sclerotic densithy in the left side of the frontal sinus measuring 1.3 x 0.8 cm consistent with an osteoma. Head/Neck CTA: mild to moderate focal basilar artery stenosis at the junction of the lower and middle thirds. Brain MRI: nonhemorrhagic subacute infarct in the left anterior parmedian [place] measureing 13mmx6.7mm. Carotid Doppler: minimal thickening of the common bifurcation without significant stenosis Plan/Assessment: Patient is a 68 year old male with a significant past medical history of alcoholism (last drink day before admission as per ), hypertension, hyperlipidemia and GERD. He presents to the ED yesterday after he was noted to have weakness to his right arm and right leg while at the chiropractor's office. Patient states that he woke up this morning with right sided weakness and noted that his speech was slurred. He was told by chiropractor to come to the ED immediately for a possible stroke. Patient is having difficulty ambulating and his right leg is weak. He reports not feeling well since Tuesday of this week but did not seek medical attention until yesterday. Denies fevers, chills, lightheadedness, dizziness, headache, numbness and tingling. He denies any past withdrawal seizure, he states he last drink was last Tuesday and denies daily drinking, but drinks heavy (beers) when he does drink. Head CT compeleted - left area infract with moderate atropy and mid to moderate chronic microvascular ischemic disease changes sclerotic densithy in the left side of the frontal sinus measuring 1.3 x 0.8 cm consistent with an osteoma. Head and Nect CTA completed - mild to moderate focal basilar artery stenosis at the junction of the lower and middle thirds. Brain MRI completed - nonhemorrhagic subacute infarct in the left anterior parmedian [place] measureing 13mmx6.7mm. Carotid Doppler completed, minimal thickening of the common bifurcation without significant stenosis. Patient put on high dose statin, can reduce as outpatient if needed on repeat LDL evaluation. Reports taking ASA 81mg at home with good compliance, discussed need to increase to aggrenox as patient with ASA failure and he was in agreement; Aggrenox BID ordered. 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 He is interested in rehab at [place], in agreement with this. Previously had rehab there for both knees.
--- NOTE | 2019-05-20 10:47 | PN ---
Progress Note (short form) - Note Progress Note: s: no chest pain, palps, dizziness, dyspnea Current Medications Acetaminophen (Tylenol -) 650 mg PO Q6H PRN PRN Reason: HEADACHE Last Admin: 05/20/19 01:12 Dose: 650 mg Atorvastatin Calcium (Lipitor -) 80 mg PO HS [facility] Last Admin: 05/19/19 21:25 Dose: 80 mg Dipyridamole/Aspirin (Aggrenox -) 1 combo PO BID [facility] Last Admin: 05/19/19 21:26 Dose: 1 combo Hydrochlorothiazide (Hctz -) 12.5 mg PO DAILY [facility] Last Admin: 05/20/19 10:14 Dose: 12.5 mg Lorazepam (Ativan Injection -) 1 mg IVPUSH Q8H PRN PRN Reason: WITHDRAWAL(CONT SUBST) Losartan Potassium (Cozaar -) 100 mg PO DAILY [facility] Last Admin: 05/20/19 10:14 Dose: 100 mg Metoprolol Tartrate (Lopressor -) 100 mg PO BID [facility] Last Admin: 05/20/19 10:14 Dose: 100 mg Multivitamins/Minerals/Vitamin C (Tab-A-Vit -) 1 tab PO DAILY [facility] Last Admin: 05/20/19 10:14 Dose: 1 tab Trazodone HCl (Desyrel -) 200 mg PO HS [facility] Last Admin: 05/19/19 21:26 Dose: 200 mg Vital Signs Period Temp Pulse Resp BP Sys/Cunningham Pulse Ox Last 24 Hr 97.2 F-97.6 F 54-61 12-23 130-177/67-88 98 nad no jvd rrr s1s2 no mrg cta bl nl eff abd nt nd pos bs no jaundice diaphoresis pos dp pt no carotid bruits aao3 no le e/c/c tele: sr ecg: sr nl intervals no ischemic changes a/p: 68 m hx etoh abuse, htn, hld, pericardial effusion s/p drainage 20+years ago here with right sided weakness, slurred speech. cva: -neuro following, switched to aggrenox -cont statin, bp targets per neuro -echo nl LV/RV function -cont tele htn: -cont bb, arb, hctz hld: -cont statin pericardial eff: -remote hx s/p drainage 20+ years ago -no effusion on echo here
[2019-05-20] MEDS: ASPIRIN/DIPYRIDAMOLE 25 MG/200 MG CAPSULE PO SCH ×2 (12:05→22:15)
[2019-05-20] MEDS ORDERED: ACETAMINOPHEN 1000 MG/100 ML VIAL (NON FORMULARY) IVPB ONE (14:20)
[2019-05-20] MEDS ORDERED: LORazepam 1 MG TABLET PO ONE (14:20)
--- NOTE | 2019-05-20 15:42 | PN ---
Progress Note, Physician Chief Complaint: denies headache, denies shortness of breath History of Present Illness: Patient is a 68 year old male with a significant past medical history of alcoholism, hypertension, hyperlipidemia and GERD. He presents to the ED after he was noted to have weakness to his right arm and right leg while at the chiropractor's office. Patient states that he woke up this morning with right sided weakness and noted that his speech was slurred. He was told by chiropractor to come to the ED immediately for a possible stroke. Patient is having difficulty ambulating and his right leg is weak. Denies fevers, chills, lightheadedness, dizziness, headache, numbness and tingling. He denies any past withdrawal seizure, he states he last drink was last Tuesday and denies daily drinking, but drinks heavy (beers) when he does drink. Imaging: Head CT/non contrast 05/17/19: left area of infarct. moderate atropy and mid to moderate chronic microvascular ischemic disease changes sclerotic density in the left side of the frontal sinus measuring 1.3 x 0.8 cm consistent with an osteoma. Echo 05/18/2019: left atrium mildly dilated, trace pulmonic valve regurg. EKG: sinus bradycardia rate 50s no acute ST-T wave changes normal intervals and axis. 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 infarct measures apx 13mm x 6.7 cm. supratentorial periventricular subcortical white matter microangiopathic ischemic changes. - Current Medication List Current Medications: Active Medications Acetaminophen (Tylenol -) 650 mg PO Q6H PRN PRN Reason: HEADACHE Last Admin: 05/20/19 10:44 Dose: 650 mg Atorvastatin Calcium (Lipitor -) 80 mg PO HS [facility] Last Admin: 05/19/19 21:25 Dose: 80 mg Dipyridamole/Aspirin (Aggrenox -) 1 combo PO BID [facility] Last Admin: 05/20/19 12:05 Dose: 1 combo Hydrochlorothiazide (Hctz -) 12.5 mg PO DAILY [facility] Last Admin: 05/20/19 10:14 Dose: 12.5 mg Lorazepam (Ativan Injection -) 1 mg IVPUSH Q8H PRN PRN Reason: WITHDRAWAL(CONT SUBST) Losartan Potassium (Cozaar -) 100 mg PO DAILY [facility] Last Admin: 05/20/19 10:14 Dose: 100 mg Metoprolol Tartrate (Lopressor -) 100 mg PO BID [facility] Last Admin: 05/20/19 10:14 Dose: 100 mg Multivitamins/Minerals/Vitamin C (Tab-A-Vit -) 1 tab PO DAILY [facility] Last Admin: 05/20/19 10:14 Dose: 1 tab Trazodone HCl (Desyrel -) 200 mg PO HS [facility] Last Admin: 05/19/19 21:26 Dose: 200 mg - Objective Vital Signs: Vital Signs Temperature 97.6 F 05/20/19 10:50 Pulse Rate 58 L 05/20/19 09:00 Respiratory Rate 12 05/20/19 09:00 Blood Pressure 151/88 05/20/19 09:00 O2 Sat by Pulse Oximetry (%) 98 05/19/19 21:00 Constitutional: Yes: Well Nourished, Calm Eyes: Yes: WNL HENT: Yes: Atraumatic Neck: Yes: Supple Cardiovascular: Yes: Regular Rate and Rhythm Respiratory: Yes: Regular Gastrointestinal: Yes: Normal Bowel Sounds, Soft ...Rectal Exam: Yes: Deferred Labs: CBC, BMP 05/20/19 05:20 05/20/19 05:20 INR, PTT INR 0.98 (0.83-1.09) 05/17/19 14:20 Problem List - Problems (1) Stroke Assessment/Plan: Acute stroke per head CT. Neuro consulted and following. recommendations for acute rehab. monitor on tele continue with - tele/stroke monitoring - neuro checks q4 - physical therapy - lipitor 80 - aggrenox bid - SCDs - close monitoring of BP - swallow eval recommendations noted and appreciated. Code(s): I63.9 - CEREBRAL INFARCTION, UNSPECIFIED Qualifiers: CVA mechanism: occlusion Precerebral and cerebral artery: unspecified cerebral artery Qualified Code(s): I63.50 - Cerebral infarction due to unspecified occlusion or stenosis of unspecified cerebral artery (2) ETOH abuse Assessment/Plan: having headaches and abdominal pain, appears mildly anxious. will give ativan 1mg PO and iv tylenol. monitor for worsening signs of withdrawal see CIWA score Code(s): F10.10 - ALCOHOL ABUSE, UNCOMPLICATED (3) Hypertension Assessment/Plan: on hyzaar and metoprolol increased losartan to 100. monitor Code(s): I10 - ESSENTIAL (PRIMARY) HYPERTENSION (4) DVT prophylaxis Assessment/Plan: SCDs bilaterally Code(s): Z29.9 - ENCOUNTER FOR PROPHYLACTIC MEASURES, UNSPECIFIED Visit type - Emergency Visit Emergency Visit: Yes ED Registration Date: 05/17/19 Care time: The patient presented to the Emergency Department on the above date and was hospitalized for further evaluation of their emergent condition. - New Patient This patient is new to me today: No - Critical Care Critical Care patient: No - Discharge Referral Referred to [facility] No CIWA Score Nausea/Vomitin-Mild Nausea/No Vomiting Muscle Tremors: None Anxiety: 1-Mildly Anxious Agitation: 0-Normal Activity Paroxysmal Sweats: No Perspiration Orientation: 0-Oriented Tacttile Disturbances: 0-None Auditory Disturbances: 0-None Visual Disturbances: 0-None Headache: 2-Mild CIWA-Ar Total Score: 4 - Admission Criteria OASAS Guidelines: Admission for Medically Managed Detox: Requires at least one of the followin. CIWA greater than 12 2. Seizures within the past 24 hours 3. Delirium tremens within the past 24 hours 4. Hallucinations within the past 24 hours 5. Acute intervention needed for co occurring medical disorder 6. Acute intervention needed for co occurring psychiatric disorder 7. Severe withdrawal that cannot be handled at a lower level of care (continued vomiting, continued diarrhea, abnormal vital signs) requiring intravenous medication and/or fluids 8.
[2019-05-20] MEDS: traZODone HCL 50 MG TABLET (FP) PO SCH ×2 (22:09→22:17)
[2019-05-20] MEDS: ATORVASTATIN CA 80 MG TABLET (FP) PO SCH (22:09)
[2019-05-21 06:19] LABS: BASO % 0.2 % (0-2.0); EOS % 0.1 % (0-4.5); HEMATOCRIT 45.6 % (35.4-49); LYMPH % 13.8 % (8-40); MCH 30.3 pg (25.7-33.7); MEAN CELL VOLUME 86.6 fl (80-96); MEAN PLT VOLUME 8.2 fl (7.5-11.1); MONO % 5.2 % (3.8-10.2); NEUT % 80.7 % (42.8-82.8); PLATELET COUNT 190 K/MM3 (134-434); RBC 5.27 M/mm3 (4.00-5.60); RDW 14.6 % (11.9-15.9); WHITE BLOOD COUNT 8.3 K/mm3 (4.0-10.0)
[2019-05-21 06:46] LABS: ALBUMIN 3.7 g/dl (3.4-5.0); BILIRUBIN,TOTAL 0.8 mg/dL (0.2-1); BLOOD UREA NITROGEN 16.6 mg/dL (7-18); CALCIUM 9.1 mg/dL (8.5-10.1); MAGNESIUM 2.2 mg/dL (1.8-2.4); POTASSIUM 3.5 mmol/L (3.5-5.1); TOT PROT 7.2 g/dl (6.4-8.2)
--- NOTE | 2019-05-21 08:18 | PN ---
Progress Note, Physician Chief Complaint: No distress TELE: NSR BP slightly elevated - Current Medication List Current Medications: Active Medications Acetaminophen (Tylenol -) 650 mg PO Q6H PRN PRN Reason: HEADACHE Last Admin: 05/20/19 10:44 Dose: 650 mg Atorvastatin Calcium (Lipitor -) 80 mg PO HS [facility] Last Admin: 05/20/19 22:09 Dose: 80 mg Dipyridamole/Aspirin (Aggrenox -) 1 combo PO BID [facility] Last Admin: 05/20/19 22:15 Dose: 1 combo Hydrochlorothiazide (Hctz -) 12.5 mg PO DAILY [facility] Last Admin: 05/20/19 10:14 Dose: 12.5 mg Losartan Potassium (Cozaar -) 100 mg PO DAILY [facility] Last Admin: 05/20/19 10:14 Dose: 100 mg Metoprolol Tartrate (Lopressor -) 100 mg PO BID [facility] Last Admin: 05/20/19 22:09 Dose: 100 mg Multivitamins/Minerals/Vitamin C (Tab-A-Vit -) 1 tab PO DAILY [facility] Last Admin: 05/20/19 10:14 Dose: 1 tab Trazodone HCl (Desyrel -) 200 mg PO [facility] Last Admin: 05/20/19 22:17 Dose: Not Given - Objective Vital Signs: Vital Signs Temperature 97.6 F 05/21/19 06:00 Pulse Rate 80 05/21/19 06:00 Respiratory Rate 16 05/21/19 06:00 Blood Pressure 163/89 05/21/19 06:00 O2 Sat by Pulse Oximetry (%) 98 05/20/19 22:00 Constitutional: Yes: Calm Cardiovascular: Yes: Regular Rate and Rhythm Respiratory: Yes: CTA Bilaterally Gastrointestinal: Yes: Soft Edema: No Neurological: Yes: Alert Labs: CBC, BMP 05/21/19 05:15 05/21/19 05:15 INR, PTT INR 0.98 (0.83-1.09) 05/17/19 14:20 - ....Imaging EKG: Image Reviewed Assessment/Plan 68 m hx etoh abuse, htn, hld, pericardial effusion s/p drainage 20+years ago here with right sided weakness found to have CVA. CVA: -neuro following, switched to aggrenox -cont statin. BP remains elevated, will add Amlodipine to be titrated to goal as outlined by Neuro -echo nl LV/RV function -tele without AF thus far. HTN: -cont bb, arb, hctz. Adding low dose Amlodipine HLD: -cont statin Pericardial eff: -remote hx s/p drainage 20+ years ago -no effusion on echo here
--- NOTE | 2019-05-21 09:28 | PN ---
Progress Note (short form) - Note Progress Note: Hospitalist to document today. RUE and RLE weakness improved from Tuesday. Still BP issues. Very motivated for rehab. Has been at [facility] post knee surgery.
--- NOTE | 2019-05-21 09:29 | PN ---
Progress Note (short form) - Note Progress Note: Neurology - Admission Chief Complaint: right sided weakness History of Present Illness: Patient is a 68 year old male with a significant past medical history of alcoholism (last drink day before admission as per ), hypertension, hyperlipidemia and GERD. He presents to the ED yesterday after he was noted to have weakness to his right arm and right leg while at the chiropractor's office. Patient states that he woke up this morning with right sided weakness and noted that his speech was slurred. He was told by chiropractor to come to the ED immediately for a possible stroke. Patient is having difficulty ambulating and his right leg is weak. He reports not feeling well since Tuesday of this week but did not seek medical attention until yesterday. Denies fevers, chills, lightheadedness, dizziness, headache, numbness and tingling. He denies any past withdrawal seizure, he states he last drink was last Tuesday and denies daily drinking, but drinks heavy (beers) when he does drink. Head CT compeleted - left area infract with moderate atropy and mid to moderate chronic microvascular ischemic disease changes sclerotic densithy in the left side of the frontal sinus measuring 1.3 x 0.8 cm consistent with an osteoma. Head and Nect CTA completed - mild to moderate focal basilar artery stenosis at the junction of the lower and middle thirds. Brain MRI completed - nonhemorrhagic subacute infarct in the left anterior parmedian [place] measuring 13mmx6.7mm. Carotid Doppler completed, minimal thickening of the common bifurcation without significant stenosis. Reports taking ASA 81mg at home with good compliance, discussed need to increase to aggrenox as patient with ASA failure and he was in agreement; Aggrenox BID ordered. Speech R sided weakness better this AM. He is interested in rehab at [place], in agreement with this. Previously had rehab there for both knees. Allergies Allergy/AdvReac Type Severity Reaction Status Date / Time No Known Drug Allergies Allergy Verified 05/17/19 13:39 leep Active Medications Acetaminophen (Tylenol -) 650 mg PO Q6H PRN PRN Reason: HEADACHE Last Admin: 05/20/19 10:44 Dose: 650 mg Amlodipine Besylate (Norvasc -) 2.5 mg PO DAILY [facility] Atorvastatin Calcium (Lipitor -) 80 mg PO HS [facility] Last Admin: 05/20/19 22:09 Dose: 80 mg Dipyridamole/Aspirin (Aggrenox -) 1 combo PO BID [facility] Last Admin: 05/20/19 22:15 Dose: 1 combo Hydrochlorothiazide (Hctz -) 12.5 mg PO DAILY [facility] Last Admin: 05/20/19 10:14 Dose: 12.5 mg Losartan Potassium (Cozaar -) 100 mg PO DAILY [facility] Last Admin: 05/20/19 10:14 Dose: 100 mg Metoprolol Tartrate (Lopressor -) 100 mg PO BID [facility] Last Admin: 05/20/19 22:09 Dose: 100 mg Multivitamins/Minerals/Vitamin C (Tab-A-Vit -) 1 tab PO DAILY [facility] Last Admin: 05/20/19 10:14 Dose: 1 tab Trazodone HCl (Desyrel -) 200 mg PO [facility] Last Admin: 05/20/19 22:17 Dose: Not Given Physical Examination Vital Signs: Vital Signs Period Temp Pulse Resp BP Sys/Cunningham Pulse Ox Last 24 Hr 97.5 F-98 F 60-84 12-18 143-167/69-97 98 Constitutional: Yes: No Distress, Calm Eyes: Yes: WNL HENT: Yes: Atraumatic Neck: Yes: Supple Cardiovascular: Yes: Regular Rate and Rhythm Respiratory: Yes: CTA Bilaterally Gastrointestinal: Yes: Abdomen, Obese ...Rectal Exam: Yes: Deferred Musculoskeletal: Yes: WNL, Back Pain Extremities: Yes: WNL Edema: No Integumentary: Yes: WNL Neurological: Awake, alert, 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 of 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, speech slurred, RLE 4+/5, L sided strenght intact, sensory equal CBCD WBC 8.3 K/mm3 (4.0-10.0) 05/21/19 05:15 RBC 5.27 M/mm3 (4.00-5.60) 05/21/19 05:15 Hgb 16.0 GM/dL (11.7-16.9) 05/21/19 05:15 Hct 45.6 % (35.4-49) 05/21/19 05:15 MCV 86.6 fl (80-96) 05/21/19 05:15 MCHC 35.0 g/dl (32.0-35.9) 05/21/19 05:15 RDW 14.6 % (11.9-15.9) 05/21/19 05:15 Plt Count 190 K/MM3 (134-434) 05/21/19 05:15 MPV 8.2 fl (7.5-11.1) 05/21/19 05:15 CMP Sodium 143 mmol/L (136-145) 05/21/19 05:15 Potassium 3.5 mmol/L (3.5-5.1) 05/21/19 05:15 Chloride 110 mmol/L (98-107) H 05/21/19 05:15 Carbon Dioxide 25 mmol/L (21-32) 05/21/19 05:15 Anion Gap 7 MMOL/L (8-16) L 05/21/19 05:15 BUN 16.6 mg/dL (7-18) 05/21/19 05:15 Creatinine 1.0 mg/dL (0.55-1.3) 05/21/19 05:15 Random Glucose 123 mg/dL (74-106) H 05/21/19 05:15 Calcium 9.1 mg/dL (8.5-10.1) 05/21/19 05:15 Total Bilirubin 0.8 mg/dL (0.2-1) 05/21/19 05:15 AST 23 U/L (15-37) 05/21/19 05:15 ALT 33 U/L (13-61) 05/21/19 05:15 Alkaline Phosphatase 52 U/L (45-117) 05/21/19 05:15 Total Protein 7.2 g/dl (6.4-8.2) 05/21/19 05:15 Albumin 3.7 g/dl (3.4-5.0) 05/21/19 05:15 CARDIAC ENZYMES Creatine Kinase 99 U/L (26-308) 05/17/19 14:20 Troponin I < 0.02 ng/ml (0.00-0.05) 05/18/19 11:41 Imaging: Head CT/non contrast 05/17/19: left area of infarct. moderate atropy and mid to moderate chronic microvascular ischemic disease changes sclerotic densithy in the left side of the frontal sinus measuring 1.3 x 0.8 cm consistent with an osteoma. Head/Neck CTA: mild to moderate focal basilar artery stenosis at the junction of the lower and middle thirds. Brain MRI: nonhemorrhagic subacute infarct in the left anterior parmedian [place] measureing 13mmx6.7mm. Carotid Doppler: minimal thickening of the common bifurcation without significant stenosis Plan/Assessment: Patient is a 68 year old male with a significant past medical history of alcoholism (last drink day before admission as per ), hypertension, hyperlipidemia and GERD. He presents to the ED yesterday after he was noted to have weakness to his right arm and right leg while at the chiropractor's office. Patient states that he woke up this morning with right sided weakness and noted that his speech was slurred. He was told by chiropractor to come to the ED immediately for a possible stroke. Patient is having difficulty ambulating and his right leg is weak. He reports not feeling well since Tuesday of this week but did not seek medical attention until yesterday. Denies fevers, chills, lightheadedness, dizziness, headache, numbness and tingling. He denies any past withdrawal seizure, he states he last drink was last Tuesday and denies daily drinking, but drinks heavy (beers) when he does drink. Head CT compeleted - left area infract with moderate atropy and mid to moderate chronic microvascular ischemic disease changes sclerotic densithy in the left side of the frontal sinus measuring 1.3 x 0.8 cm consistent with an osteoma. Head and Nect CTA completed - mild to moderate focal basilar artery stenosis at the junction of the lower and middle thirds. Brain MRI completed - nonhemorrhagic subacute infarct in the left anterior parmedian [place] measureing 13mmx6.7mm. Carotid Doppler completed, minimal thickening of the common bifurcation without significant stenosis. Patient put on high dose statin, can reduce as outpatient if needed on repeat LDL evaluation. Reports taking ASA 81mg at home with good compliance, discussed need to increase to aggrenox as patient with ASA failure and he was in agreement; Aggrenox BID ordered. He is interested in rehab at [place], in agreement with this. Previously had rehab there for both knees. Physical therapy as tolerated. Elevated BP this morning, goal < 140/90. Tigher bp control recommended as best able.
[2019-05-21] MEDS ORDERED: amLODIPine BESYLATE 2.5 MG TABLET (FP) PO SCH (10:00)
[2019-05-21] MEDS ORDERED: PT OWN MED DRAWER 7, Y5N ONE ×2 (10:13→21:14)
[2019-05-21] MEDS: HYDROCHLOROTHIAZIDE 12.5 MG CAPSULE (FP) PO SCH (10:14)
[2019-05-21] MEDS: ASPIRIN/DIPYRIDAMOLE 25 MG/200 MG CAPSULE PO SCH ×2 (10:14→21:16)
[2019-05-21] MEDS: LOSARTAN POTASSIUM 50 MG TABLET (FP) PO SCH (10:15)
[2019-05-21] MEDS: METOPROLOL TARTRATE 50 MG TABLET (FP) PO SCH ×2 (10:15→21:15)
[2019-05-21] MEDS: MULTIVITAMINS (DAILY MVI) TABLET (FP) PO SCH (10:16)
--- NOTE | 2019-05-21 12:17 | PN ---
Progress Note, DIRECTOR OPERATING - Note Progress Note: Selected Entries 05/20/19 05/20/19 05/20/19 01:16 06:00 10:50 Breakfast Lunch Temperature 97.2 F L 97.4 F L 97.6 F 05/20/19 05/20/19 05/20/19 13:56 17:41 23:00 Breakfast 50% Lunch 50% Temperature 97.5 F L 98 F 05/21/19 05/21/19 05/21/19 02:00 06:00 10:00 Breakfast Lunch Temperature 97.8 F 97.6 F 97.6 F Laboratory Tests 05/20/19 05/21/19 05:20 05:15 WBC 8.2 8.3 Pt has been tolerating Dys ground diet/nectar thick liquids. Asked his friend to bring him a bottle of water. Nursing told him he was not allowed, based on MBs. Right facial weakness. Reassessed swallowing function with immediate cough response on thin water. Continue diet as ordered for now.
[2019-05-21] MEDS: ACETAMINOPHEN 325 MG TABLET (FP) PO PRN (13:52)
[2019-05-21] MEDS ORDERED: amLODIPine BESYLATE 2.5 MG TABLET (FP) PO ONE (14:30)
[2019-05-21] MEDS ORDERED: HYDROCHLOROTHIAZIDE 25 MG TABLET (FP) PO ONE (14:31)
[2019-05-21] MEDS ORDERED: LORazepam 1 MG TABLET PO PRN (18:05)
--- NOTE | 2019-05-21 20:55 | PN ---
Progress Note, Physician Chief Complaint: mild headache, denies shortness of breath. wants rehab, awaiting Lloyd and insurance auth approval. History of Present Illness: Patient is a 68 year old male with a significant past medical history of alcoholism, hypertension, hyperlipidemia and GERD. He presents to the ED after he was noted to have weakness to his right arm and right leg while at the chiropractor's office. Patient states that he woke up this morning with right sided weakness and noted that his speech was slurred. He was told by chiropractor to come to the ED immediately for a possible stroke. Patient is having difficulty ambulating and his right leg is weak. Denies fevers, chills, lightheadedness, dizziness, headache, numbness and tingling. He denies any past withdrawal seizure, he states he last drink was last Tuesday and denies daily drinking, but drinks heavy (beers) when he does drink. Imaging: Head CT/non contrast 05/17/19: left area of infarct. moderate atropy and mid to moderate chronic microvascular ischemic disease changes sclerotic density in the left side of the frontal sinus measuring 1.3 x 0.8 cm consistent with an osteoma. Echo 05/18/2019: left atrium mildly dilated, trace pulmonic valve regurg. EKG: sinus bradycardia rate 50s no acute ST-T wave changes normal intervals and axis. 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 infarct measures apx 13mm x 6.7 cm. supratentorial periventricular subcortical white matter microangiopathic ischemic changes. 8 - Current Medication List Current Medications: Active Medications Acetaminophen (Tylenol -) 650 mg PO Q6H PRN PRN Reason: HEADACHE Last Admin: 05/21/19 13:52 Dose: 650 mg Amlodipine Besylate (Norvasc -) 5 mg PO DAILY [facility] Atorvastatin Calcium (Lipitor -) 80 mg PO HS [facility] Last Admin: 05/20/19 22:09 Dose: 80 mg Dipyridamole/Aspirin (Aggrenox -) 1 combo PO BID [facility] Last Admin: 05/21/19 10:14 Dose: 1 combo Hydrochlorothiazide (Hctz -) 25 mg PO DAILY [facility] Lorazepam (Ativan -) 1 mg PO Q12H PRN PRN Reason: ANXIETY Last Admin: 05/21/19 18:24 Dose: 1 mg Losartan Potassium (Cozaar -) 100 mg PO DAILY [facility] Last Admin: 05/21/19 10:15 Dose: 100 mg Metoprolol Tartrate (Lopressor -) 100 mg PO BID [facility] Last Admin: 05/21/19 10:15 Dose: 100 mg Multivitamins/Minerals/Vitamin C (Tab-A-Vit -) 1 tab PO DAILY [facility] Last Admin: 05/21/19 10:16 Dose: 1 tab Trazodone HCl (Desyrel -) 200 mg PO HS [facility] Last Admin: 05/20/19 22:17 Dose: Not Given - Objective Vital Signs: Vital Signs Temperature 97.6 F 05/21/19 10:00 Pulse Rate 66 05/21/19 15:00 Respiratory Rate 17 05/21/19 15:00 Blood Pressure 165/85 05/21/19 15:00 O2 Sat by Pulse Oximetry (%) 97 05/21/19 09:00 Constitutional: Yes: Well Nourished, No Distress Eyes: Yes: WNL HENT: Yes: Atraumatic Neck: Yes: Supple Cardiovascular: Yes: Regular Rate and Rhythm Respiratory: Yes: Regular Gastrointestinal: Yes: Normal Bowel Sounds ...Rectal Exam: Yes: WNL Genitourinary: Yes: WNL Breast(s): Yes: WNL Musculoskeletal: Yes: WNL Labs: CBC, BMP 05/21/19 05:15 05/21/19 05:15 INR, PTT INR 0.98 (0.83-1.09) 05/17/19 14:20 Problem List - Problems (1) Stroke Assessment/Plan: Acute stroke per head CT. Neuro consulted and following. recommendations for acute rehab. awaiting approval monitor on tele continue with - tele/stroke monitoring - neuro checks q4 - physical therapy - lipitor 80 - aggrenox bid - SCDs - close monitoring of BP - swallow eval recommendations noted and appreciated. Code(s): I63.9 - CEREBRAL INFARCTION, UNSPECIFIED Qualifiers: CVA mechanism: occlusion Precerebral and cerebral artery: unspecified cerebral artery Qualified Code(s): I63.50 - Cerebral infarction due to unspecified occlusion or stenosis of unspecified cerebral artery (2) ETOH abuse Assessment/Plan: having headaches and abdominal pain, appears mildly anxious. will continue ativan 1mg PO and tylenol. monitor for worsening signs of withdrawal see CIWA score Code(s): F10.10 - ALCOHOL ABUSE, UNCOMPLICATED (3) Hypertension Assessment/Plan: on losartan 100, hctz 25mg, started on amlodopine 5 hypertension may be due to anxiety? withdrawal? on ativan prn cardiology following Code(s): I10 - ESSENTIAL (PRIMARY) HYPERTENSION (4) DVT prophylaxis Assessment/Plan: SCDs bilaterally Code(s): Z29.9 - ENCOUNTER FOR PROPHYLACTIC MEASURES, UNSPECIFIED Visit type - Emergency Visit Emergency Visit: Yes ED Registration Date: 05/17/19 Care time: The patient presented to the Emergency Department on the above date and was hospitalized for further evaluation of their emergent condition. - New Patient This patient is new to me today: No - Critical Care Critical Care patient: No - Discharge Referral Referred to [facility] Med P.C.: No CIWA Score Nausea/Vomitin-No Nausea/No Vomiting Muscle Tremors: None Anxiety: 1-Mildly Anxious Agitation: 0-Normal Activity Paroxysmal Sweats: No Perspiration Orientation: 0-Oriented Tacttile Disturbances: 0-None Auditory Disturbances: 0-None Visual Disturbances: 0-None Headache: 3-Moderate CIWA-Ar Total Score: 4 - Admission Criteria OASAS Guidelines: Admission for Medically Managed Detox: Requires at least one of the followin. CIWA greater than 12 2. Seizures within the past 24 hours 3. Delirium tremens within the past 24 hours 4. Hallucinations within the past 24 hours 5. Acute intervention needed for co occurring medical disorder 6. Acute intervention needed for co occurring psychiatric disorder 7. Severe withdrawal that cannot be handled at a lower level of care (continued vomiting, continued diarrhea, abnormal vital signs) requiring intravenous medication and/or fluids 8.
[2019-05-21] MEDS: ATORVASTATIN CA 80 MG TABLET (FP) PO SCH (21:15)
[2019-05-21] MEDS: traZODone HCL 50 MG TABLET (FP) PO SCH (21:15)
[2019-05-21] MEDS ORDERED: hydrALAZINE HCL 50 MG TABLET (FP) PO ONE (22:49)
[2019-05-22 06:29] LABS: BASO % 0.6 % (0-2.0); EOS % 0.4 % (0-4.5); HEMATOCRIT 47.5 % (35.4-49); HEMOGLOBIN 16.4 GM/dL (11.7-16.9); LYMPH % 22.2 % (8-40); MCH 30.1 pg (25.7-33.7); MCHC 34.6 g/dl (32.0-35.9); MEAN CELL VOLUME 87.1 fl (80-96); MEAN PLT VOLUME 8.5 fl (7.5-11.1); MONO % 7.9 % (3.8-10.2); NEUT % 68.9 % (42.8-82.8); PLATELET COUNT 218 K/MM3 (134-434); RBC 5.46 M/mm3 (4.00-5.60); RDW 14.6 % (11.9-15.9); WHITE BLOOD COUNT 9.7 K/mm3 (4.0-10.0)
[2019-05-22 06:50] LABS: ALBUMIN 3.7 g/dl (3.4-5.0); BLOOD UREA NITROGEN 22.9 mg/dL (7-18); CREATININE 1.1 mg/dL (0.55-1.3); MAGNESIUM 2.1 mg/dL (1.8-2.4); POTASSIUM 3.3 mmol/L (3.5-5.1); TOT PROT 7.2 g/dl (6.4-8.2)
[2019-05-22] MEDS ORDERED: POTASSIUM CHLORIDE TABS 20 MEQ TABLET.ER (FP) PO ONE (07:39)
--- NOTE | 2019-05-22 07:44 | PN ---
Progress Note, Physician Chief Complaint: No complaints offered, awaiting Lloyd and insurance auth approval. History of Present Illness: Patient is a 68 year old male with a significant past medical history of alcoholism, hypertension, hyperlipidemia and GERD. He presents to the ED after he was noted to have weakness to his right arm and right leg while at the chiropractor's office. Patient states that he woke up this morning with right sided weakness and noted that his speech was slurred. He was told by chiropractor to come to the ED immediately for a possible stroke. Patient is having difficulty ambulating and his right leg is weak. Denies fevers, chills, lightheadedness, dizziness, headache, numbness and tingling. He denies any past withdrawal seizure, he states he last drink was last Tuesday and denies daily drinking, but drinks heavy (beers) when he does drink. - Current Medication List Current Medications: Active Medications Acetaminophen (Tylenol -) 650 mg PO Q6H PRN PRN Reason: HEADACHE Last Admin: 05/21/19 13:52 Dose: 650 mg Amlodipine Besylate (Norvasc -) 5 mg PO DAILY [facility] Atorvastatin Calcium (Lipitor -) 80 mg PO HS [facility] Last Admin: 05/21/19 21:15 Dose: 80 mg Dipyridamole/Aspirin (Aggrenox -) 1 combo PO BID [facility] Last Admin: 05/21/19 21:16 Dose: 1 combo Hydrochlorothiazide (Hctz -) 25 mg PO DAILY [facility] Lorazepam (Ativan -) 1 mg PO Q12H PRN PRN Reason: ANXIETY Last Admin: 05/21/19 18:24 Dose: 1 mg Losartan Potassium (Cozaar -) 100 mg PO DAILY [facility] Last Admin: 05/21/19 10:15 Dose: 100 mg Metoprolol Tartrate (Lopressor -) 100 mg PO BID [facility] Last Admin: 05/21/19 21:15 Dose: 100 mg Multivitamins/Minerals/Vitamin C (Tab-A-Vit -) 1 tab PO DAILY [facility] Last Admin: 05/21/19 10:16 Dose: 1 tab Trazodone HCl (Desyrel -) 200 mg PO HS [facility] Last Admin: 05/21/19 21:15 Dose: 200 mg - Objective Vital Signs: Vital Signs Temperature 98.4 F 08/27/19 06:15 Pulse Rate 74 05/22/19 06:15 Respiratory Rate 21 H 05/22/19 06:15 Blood Pressure 165/82 05/22/19 06:15 O2 Sat by Pulse Oximetry (%) 97 05/21/19 23:10 Constitutional: Yes: Well Nourished, No Distress, Calm Eyes: Yes: WNL, Conjunctiva Clear, EOM Intact HENT: Yes: WNL, Atraumatic, Normocephalic Neck: Yes: WNL, Supple, Trachea Midline Cardiovascular: Yes: WNL, Regular Rate and Rhythm Respiratory: Yes: WNL, Regular, CTA Bilaterally Gastrointestinal: Yes: WNL, Normal Bowel Sounds, Soft ...Rectal Exam: Yes: Deferred Genitourinary: Yes: WNL Breast(s): Yes: WNL Musculoskeletal: Yes: Muscle Weakness Extremities: Yes: WNL Edema: No Peripheral Pulses WNL: Yes Integumentary: Yes: WNL Neurological: Yes: WNL, Alert, Oriented ...Motor Strength: LLE, RLE (generalized weaknedd) Psychiatric: Yes: WNL, Alert, Oriented Labs: CBC, BMP 05/22/19 05:20 05/22/19 05:20 INR, PTT INR 0.98 (0.83-1.09) 05/17/19 14:20 - ....Imaging Other: Other (Head CT/non contrast 05/17/19: left area of infarct. moderate atropy and mid to moderate chronic microvascular ischemic disease changes sclerotic density in the left side of the frontal sinus measuring 1.3 x 0.8 cm consistent with an osteoma. Echo 05/18/2019: left atrium mildly dilated, trace pulmonic valve regurg. EKG: sinus bradycardia rate 50s no acute ST-T wave changes normal intervals and axis. 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 infarct measures apx 13mm x 6.7 cm. supratentorial periventricular subcortical white matter microangiopathic ischemic changes. 8) Problem List - Problems (1) DVT prophylaxis Assessment/Plan: SCD on , no chemical anitcoagulation PT following, enoruage ambulation with assistance Dispo maintain on tele until bed opens at [facility] full code Code(s): Z29.9 - ENCOUNTER FOR PROPHYLACTIC MEASURES, UNSPECIFIED (2) ETOH abuse Assessment/Plan: CIWA Score Nausea/Vomitin-No Nausea/No Vomiting Muscle Tremors: None Anxiety: 1-Mildly Anxious Agitation: 0-Normal Activity Paroxysmal Sweats: No Perspiration Orientation: 0-Oriented Tacttile Disturbances: 0-None Auditory Disturbances: 0-None Visual Disturbances: 0-None Headache: 1-mild CIWA-Ar Total Score: 2 headaches resolving and repsonding to tylenol c/w ativan 1mg PO and tylenol. c/w monitor for worsening signs of withdrawal see CIWA score Code(s): F10.10 - ALCOHOL ABUSE, UNCOMPLICATED (3) Hypertension Assessment/Plan: on losartan 100, hctz 25mg, started on amlodopine 5 on ativan prn cardiology following Code(s): I10 - ESSENTIAL (PRIMARY) HYPERTENSION (4) Stroke Assessment/Plan: Acute stroke per head CT. Neuro consulted and following. recommendations for acute rehab. awaiting approval -continue monitor on tele until dc - neuro checks q4 - physical therapy - lipitor 80 - aggrenox bid - SCDs - close monitoring of BP - swallow eval recommendations noted and appreciated. Code(s): I63.9 - CEREBRAL INFARCTION, UNSPECIFIED Qualifiers: CVA mechanism: occlusion Precerebral and cerebral artery: unspecified cerebral artery Qualified Code(s): I63.50 - Cerebral infarction due to unspecified occlusion or stenosis of unspecified cerebral artery Visit type - Emergency Visit Emergency Visit: Yes ED Registration Date: 05/17/19 Care time: The patient presented to the Emergency Department on the above date and was hospitalized for further evaluation of their emergent condition. - New Patient This patient is new to me today: Yes Date on this admission: 05/22/19 - Critical Care Critical Care patient: No - Discharge Referral Referred to [facility] Med P.C.: No
[2019-05-22] MEDS: ASPIRIN/DIPYRIDAMOLE 25 MG/200 MG CAPSULE PO SCH ×2 (09:09→21:03)
[2019-05-22] MEDS: METOPROLOL TARTRATE 50 MG TABLET (FP) PO SCH ×2 (09:09→21:03)
[2019-05-22] MEDS: HYDROCHLOROTHIAZIDE 25 MG TABLET (FP) PO SCH (09:09)
[2019-05-22] MEDS: MULTIVITAMINS (DAILY MVI) TABLET (FP) PO SCH (09:09)
[2019-05-22] MEDS: LOSARTAN POTASSIUM 50 MG TABLET (FP) PO SCH (09:10)
--- NOTE | 2019-05-22 09:21 | PN ---
Progress Note (short form) - Note Progress Note: Neurology - Admission Chief Complaint: right sided weakness History of Present Illness: Patient is a 68 year old male with a significant past medical history of alcoholism (last drink day before admission as per ), hypertension, hyperlipidemia and GERD. He presents to the ED yesterday after he was noted to have weakness to his right arm and right leg while at the chiropractor's office. Patient states that he woke up this morning with right sided weakness and noted that his speech was slurred. He was told by chiropractor to come to the ED immediately for a possible stroke. Patient is having difficulty ambulating and his right leg is weak. He reports not feeling well since Tuesday of this week but did not seek medical attention until yesterday. Denies fevers, chills, lightheadedness, dizziness, headache, numbness and tingling. He denies any past withdrawal seizure, he states he last drink was last Tuesday and denies daily drinking, but drinks heavy (beers) when he does drink. Head CT compeleted - left area infract with moderate atropy and mid to moderate chronic microvascular ischemic disease changes sclerotic densithy in the left side of the frontal sinus measuring 1.3 x 0.8 cm consistent with an osteoma. Head and Nect CTA completed - mild to moderate focal basilar artery stenosis at the junction of the lower and middle thirds. Brain MRI completed - nonhemorrhagic subacute infarct in the left anterior parmedian [place] measuring 13mmx6.7mm. Carotid Doppler completed, minimal thickening of the common bifurcation without significant stenosis. Reports taking ASA 81mg at home with good compliance, discussed need to increase to aggrenox as patient with ASA failure and he was in agreement; Aggrenox BID ordered. Speech R sided weakness better this AM. He is interested in rehab at [place], in agreement with this. Previously had rehab there for both knees. per notes, patient was medically excepted awaiting final approvals. Allergies Allergy/AdvReac Type Severity Reaction Status Date / Time No Known Drug Allergies Allergy Verified 05/17/19 13:39 Active Medications Acetaminophen (Tylenol -) 650 mg PO Q6H PRN PRN Reason: HEADACHE Last Admin: 05/21/19 13:52 Dose: 650 mg Amlodipine Besylate (Norvasc -) 5 mg PO DAILY [facility] Last Admin: 05/22/19 09:10 Dose: 5 mg Atorvastatin Calcium (Lipitor -) 80 mg PO HS [facility] Last Admin: 05/21/19 21:15 Dose: 80 mg Dipyridamole/Aspirin (Aggrenox -) 1 combo PO BID [facility] Last Admin: 05/22/19 09:09 Dose: 1 combo Hydrochlorothiazide (Hctz -) 25 mg PO DAILY [facility] Last Admin: 05/22/19 09:09 Dose: 25 mg Lorazepam (Ativan -) 1 mg PO Q12H PRN PRN Reason: ANXIETY Last Admin: 05/21/19 18:24 Dose: 1 mg Losartan Potassium (Cozaar -) 100 mg PO DAILY [facility] Last Admin: 05/22/19 09:10 Dose: 100 mg Metoprolol Tartrate (Lopressor -) 100 mg PO BID [facility] Last Admin: 05/22/19 09:09 Dose: 100 mg Multivitamins/Minerals/Vitamin C (Tab-A-Vit -) 1 tab PO DAILY [facility] Last Admin: 05/22/19 09:09 Dose: 1 tab Trazodone HCl (Desyrel -) 200 mg PO [facility] Last Admin: 05/21/19 21:15 Dose: 200 mg Physical Examination Vital Signs: Vital Signs Period Temp Pulse Resp BP Sys/[place] Pulse Ox Last 24 Hr 97.6 F-98.6 F 66-87 13-23 134-182/43-102 97 Constitutional: Yes: No Distress, Calm Eyes: Yes: WNL HENT: Yes: Atraumatic Neck: Yes: Supple Cardiovascular: Yes: Regular Rate and Rhythm Respiratory: Yes: CTA Bilaterally Gastrointestinal: Yes: Abdomen, Obese ...Rectal Exam: Yes: Deferred Musculoskeletal: Yes: WNL, Back Pain Extremities: Yes: WNL Edema: No Integumentary: Yes: WNL Neurological: Awake, alert, 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, speech slurred, RLE 5-/5, L sided strenght intact, sensory equal CBCD WBC 8.3 K/mm3 (4.0-10.0) 05/21/19 05:15 RBC 5.27 M/mm3 (4.00-5.60) 05/21/19 05:15 Hgb 16.0 GM/dL (11.7-16.9) 05/21/19 05:15 Hct 45.6 % (35.4-49) 05/21/19 05:15 MCV 86.6 fl (80-96) 05/21/19 05:15 MCHC 35.0 g/dl (32.0-35.9) 05/21/19 05:15 RDW 14.6 % (11.9-15.9) 05/21/19 05:15 Plt Count 190 K/MM3 (134-434) 05/21/19 05:15 MPV 8.2 fl (7.5-11.1) 05/21/19 05:15 CMP Sodium 143 mmol/L (136-145) 05/21/19 05:15 Potassium 3.5 mmol/L (3.5-5.1) 05/21/19 05:15 Chloride 110 mmol/L (98-107) H 05/21/19 05:15 Carbon Dioxide 25 mmol/L (21-32) 05/21/19 05:15 Anion Gap 7 MMOL/L (8-16) L 05/21/19 05:15 BUN 16.6 mg/dL (7-18) 05/21/19 05:15 Creatinine 1.0 mg/dL (0.55-1.3) 05/21/19 05:15 Random Glucose 123 mg/dL (74-106) H 05/21/19 05:15 Calcium 9.1 mg/dL (8.5-10.1) 05/21/19 05:15 Total Bilirubin 0.8 mg/dL (0.2-1) 05/21/19 05:15 AST 23 U/L (15-37) 05/21/19 05:15 ALT 33 U/L (13-61) 05/21/19 05:15 Alkaline Phosphatase 52 U/L (45-117) 05/21/19 05:15 Total Protein 7.2 g/dl (6.4-8.2) 05/21/19 05:15 Albumin 3.7 g/dl (3.4-5.0) 05/21/19 05:15 CARDIAC ENZYMES Creatine Kinase 99 U/L (26-308) 05/17/19 14:20 Troponin I < 0.02 ng/ml (0.00-0.05) 05/18/19 11:41 Imaging: Head CT/non contrast 05/17/19: left area of infarct. moderate atropy and mid to moderate chronic microvascular ischemic disease changes sclerotic densithy in the left side of the frontal sinus measuring 1.3 x 0.8 cm consistent with an osteoma. Head/Neck CTA: mild to moderate focal basilar artery stenosis at the junction of the lower and middle thirds. Brain MRI: nonhemorrhagic subacute infarct in the left anterior parmedian [place] measureing 13mmx6.7mm. Carotid Doppler: minimal thickening of the common bifurcation without significant stenosis Plan/Assessment: Patient is a 68 year old male with a significant past medical history of alcoholism (last drink day before admission as per ), hypertension, hyperlipidemia and GERD. He presents to the ED yesterday after he was noted to have weakness to his right arm and right leg while at the chiropractor's office. Patient states that he woke up this morning with right sided weakness and noted that his speech was slurred. He was told by chiropractor to come to the ED immediately for a possible stroke. Patient is having difficulty ambulating and his right leg is weak. He reports not feeling well since Tuesday of this week but did not seek medical attention until yesterday. Denies fevers, chills, lightheadedness, dizziness, headache, numbness and tingling. He denies any past withdrawal seizure, he states he last drink was last Tuesday and denies daily drinking, but drinks heavy (beers) when he does drink. Head CT compeleted - left area infract with moderate atropy and mid to moderate chronic microvascular ischemic disease changes sclerotic densithy in the left side of the frontal sinus measuring 1.3 x 0.8 cm consistent with an osteoma. Head and Nect CTA completed - mild to moderate focal basilar artery stenosis at the junction of the lower and middle thirds. Brain MRI completed - nonhemorrhagic subacute infarct in the left anterior parmedian [place] measureing 13mmx6.7mm. Carotid Doppler completed, minimal thickening of the common bifurcation without significant stenosis. Patient put on high dose statin, can reduce as outpatient if needed on repeat LDL evaluation. Reports taking ASA 81mg at home with good compliance, discussed need to increase to aggrenox as patient with ASA failure and he was in agreement; Aggrenox BID ordered. He is interested in rehab at [facility], in agreement with this. Previously had rehab there for both knees.per notes, patient was medically excepted awaiting final approvals. Physical therapy as tolerated. Monitor bp, goal < 140/90. Tight bp control recommended as best able.
--- NOTE | 2019-05-22 09:32 | EKG ---
Test Reason : Blood Pressure : / mmHG Vent. Rate : 054 BPM Atrial Rate : 054 BPM P-R Int : 176 ms QRS Dur : 096 ms QT Int : 448 ms P-R-T Axes : 031 000 -09 degrees QTc Int : 424 ms SINUS BRADYCARDIA CANNOT RULE OUT ANTERIOR INFARCT , AGE UNDETERMINED ABNORMAL ECG WHEN COMPARED WITH ECG OF 17-MAY-2019 14:51, NO SIGNIFICANT CHANGE WAS FOUND Confirmed by Everett Lockwood MD ([id number]) on 05/22/2019 9:32:46 AM Referred By: Confirmed By:Everett Lockwood MD
[2019-05-22] MEDS ORDERED: amLODIPine BESYLATE 5 MG TABLET (FP) PO SCH (10:00)
--- NOTE | 2019-05-22 10:52 | PN ---
Progress Note (short form) - Note Progress Note: no chest pain, palps, dizziness, dyspnea Current Medications Acetaminophen (Tylenol -) 650 mg PO Q6H PRN PRN Reason: HEADACHE Last Admin: 05/21/19 13:52 Dose: 650 mg Amlodipine Besylate (Norvasc -) 5 mg PO DAILY [facility] Last Admin: 05/22/19 09:10 Dose: 5 mg Atorvastatin Calcium (Lipitor -) 80 mg PO HS [facility] Last Admin: 05/21/19 21:15 Dose: 80 mg Dipyridamole/Aspirin (Aggrenox -) 1 combo PO BID [facility] Last Admin: 05/22/19 09:09 Dose: 1 combo Hydrochlorothiazide (Hctz -) 25 mg PO DAILY [facility] Last Admin: 05/22/19 09:09 Dose: 25 mg Lorazepam (Ativan -) 1 mg PO Q12H PRN PRN Reason: ANXIETY Last Admin: 05/21/19 18:24 Dose: 1 mg Losartan Potassium (Cozaar -) 100 mg PO DAILY [facility] Last Admin: 05/22/19 09:10 Dose: 100 mg Metoprolol Tartrate (Lopressor -) 100 mg PO BID [facility] Last Admin: 05/22/19 09:09 Dose: 100 mg Multivitamins/Minerals/Vitamin C (Tab-A-Vit -) 1 tab PO DAILY [facility] Last Admin: 05/22/19 09:09 Dose: 1 tab Trazodone HCl (Desyrel -) 200 mg PO HS [facility] Last Admin: 05/21/19 21:15 Dose: 200 mg Vital Signs Period Temp Pulse Resp BP Sys/Cunningham Pulse Ox Last 24 Hr 98.1 F-98.6 F 66-84 13-23 134-182/43-95 97-99 Constitutional: Yes: Calm Cardiovascular: Yes: Regular Rate and Rhythm Respiratory: Yes: CTA Bilaterally Gastrointestinal: Yes: Soft Edema: No Neurological: Yes: Alert no jaundice, diaphoresis not agitated tele: sinus Assessment/Plan 68 m hx etoh abuse, htn, hld, pericardial effusion s/p drainage 20+years ago here with right sided weakness found to have CVA. CVA: -neuro following, switched to aggrenox -cont statin. monitor BP with amlodipine, uptitrate as tolerated -echo nl LV/RV function -tele without AF thus far. HTN: -cont bb, arb, hctz, amlodipine HLD: -cont statin Pericardial eff: -remote hx s/p drainage 20+ years ago -no effusion on echo here
[2019-05-22] MEDS: traZODone HCL 50 MG TABLET (FP) PO SCH (21:03)
[2019-05-22] MEDS: ATORVASTATIN CA 80 MG TABLET (FP) PO SCH (21:03)
[2019-05-23 05:51] LABS: BASO % 0.6 % (0-2.0); EOS % 0.8 % (0-4.5); HEMATOCRIT 47.2 % (35.4-49); HEMOGLOBIN 16.2 GM/dL (11.7-16.9); LYMPH % 24.5 % (8-40); MCH 29.8 pg (25.7-33.7); MCHC 34.4 g/dl (32.0-35.9); MEAN CELL VOLUME 86.6 fl (80-96); MEAN PLT VOLUME 8.6 fl (7.5-11.1); MONO % 10.1 % (3.8-10.2); PLATELET COUNT 205 K/MM3 (134-434); RBC 5.45 M/mm3 (4.00-5.60); RDW 14.9 % (11.9-15.9); WHITE BLOOD COUNT 8.7 K/mm3 (4.0-10.0)
[2019-05-23 06:14] LABS: ALBUMIN 3.7 g/dl (3.4-5.0); BLOOD UREA NITROGEN 27.1 mg/dL (7-18); CALCIUM 9.2 mg/dL (8.5-10.1); CREATININE 1.1 mg/dL (0.55-1.3); MAGNESIUM 2.1 mg/dL (1.8-2.4); POTASSIUM 3.2 mmol/L (3.5-5.1); TOT PROT 6.9 g/dl (6.4-8.2)
[2019-05-23] MEDS ORDERED: POTASSIUM CHLORIDE TABS 20 MEQ TABLET.ER (FP) PO ONE (07:21)
[2019-05-23] MEDS ORDERED: amLODIPine BESYLATE 10 MG TABLET (FP) PO SCH (07:24)
--- NOTE | 2019-05-23 07:25 | PN ---
Progress Note, Physician Chief Complaint: No complaints offered, awaiting Lloyd and insurance auth approval. History of Present Illness: Patient is a 68 year old male with a significant past medical history of alcoholism, hypertension, hyperlipidemia and GERD. He presents to the ED after he was noted to have weakness to his right arm and right leg while at the chiropractor's office. Patient states that he woke up this morning with right sided weakness and noted that his speech was slurred. He was told by chiropractor to come to the ED immediately for a possible stroke. Patient is having difficulty ambulating and his right leg is weak. Denies fevers, chills, lightheadedness, dizziness, headache, numbness and tingling. He denies any past withdrawal seizure, he states he last drink was last Tuesday and denies daily drinking, but drinks heavy (beers) when he does drink. - Current Medication List Current Medications: Active Medications Acetaminophen (Tylenol -) 650 mg PO Q6H PRN PRN Reason: HEADACHE Last Admin: 05/21/19 13:52 Dose: 650 mg Amlodipine Besylate (Norvasc -) 10 mg PO DAILY [facility] Atorvastatin Calcium (Lipitor -) 80 mg PO HS [facility] Last Admin: 05/22/19 21:03 Dose: 80 mg Dipyridamole/Aspirin (Aggrenox -) 1 combo PO BID [facility] Last Admin: 05/22/19 21:03 Dose: 1 combo Hydrochlorothiazide (Hctz -) 25 mg PO DAILY [facility] Last Admin: 05/22/19 09:09 Dose: 25 mg Lorazepam (Ativan -) 1 mg PO Q12H PRN PRN Reason: ANXIETY Last Admin: 05/21/19 18:24 Dose: 1 mg Losartan Potassium (Cozaar -) 100 mg PO DAILY [facility] Last Admin: 05/22/19 09:10 Dose: 100 mg Metoprolol Tartrate (Lopressor -) 100 mg PO BID [facility] Last Admin: 05/22/19 21:03 Dose: 100 mg Multivitamins/Minerals/Vitamin C (Tab-A-Vit -) 1 tab PO DAILY [facility] Last Admin: 05/22/19 09:09 Dose: 1 tab Potassium Chloride (K-Dur -) 40 meq PO ONCE ONE Stop: 05/23/19 07:22 Trazodone HCl (Desyrel -) 200 mg PO [facility] Last Admin: 05/22/19 21:03 Dose: Not Given - Objective Vital Signs: Vital Signs Temperature 98 F 05/23/19 06:00 Pulse Rate 79 05/23/19 06:00 Respiratory Rate 17 05/23/19 06:00 Blood Pressure 160/88 05/23/19 06:00 O2 Sat by Pulse Oximetry (%) 100 05/22/19 20:00 Constitutional: Yes: Well Nourished, No Distress, Calm Eyes: Yes: WNL, Conjunctiva Clear, EOM Intact HENT: Yes: WNL, Atraumatic, Normocephalic Neck: Yes: WNL, Supple, Trachea Midline Cardiovascular: Yes: WNL, Regular Rate and Rhythm Respiratory: Yes: WNL, Regular, CTA Bilaterally Gastrointestinal: Yes: WNL, Normal Bowel Sounds, Soft ...Rectal Exam: Yes: Deferred Genitourinary: Yes: WNL Breast(s): Yes: WNL Musculoskeletal: Yes: WNL Extremities: Yes: WNL Edema: No Peripheral Pulses WNL: Yes Integumentary: Yes: WNL Neurological: Yes: WNL, Alert, Oriented, Dysarthria (improving) ...Motor Strength: WNL Psychiatric: Yes: WNL, Alert, Oriented Labs: CBC, BMP 05/23/19 05:00 05/23/19 05:00 INR, PTT INR 0.98 (0.83-1.09) 05/17/19 14:20 Problem List - Problems (1) DVT prophylaxis Assessment/Plan: SCD on , no chemical anitcoagulation PT following, enoruage ambulation with assistance Dispo maintain on tele until bed opens at [facility] full code Code(s): Z29.9 - ENCOUNTER FOR PROPHYLACTIC MEASURES, UNSPECIFIED (2) ETOH abuse Assessment/Plan: CIWA Score Nausea/Vomitin-No Nausea/No Vomiting Muscle Tremors: None Anxiety: 1-Mildly Anxious Agitation: 0-Normal Activity Paroxysmal Sweats: No Perspiration Orientation: 0-Oriented Tacttile Disturbances: 0-None Auditory Disturbances: 0-None Visual Disturbances: 0-None Headache: 1-mild CIWA-Ar Total Score: 2 headaches resolving and repsonding to tylenol c/w ativan 1mg PO and tylenol. c/w monitor for worsening signs of withdrawal see CIWA score Code(s): F10.10 - ALCOHOL ABUSE, UNCOMPLICATED (3) Hypertension Assessment/Plan: c/w losartan 100, hctz 25mg increase norvasc to 10mg qd to mainatin BL <140/90 c/w ativan prn cardiology following Code(s): I10 - ESSENTIAL (PRIMARY) HYPERTENSION (4) Stroke Assessment/Plan: Acute stroke per head CT. Neuro consulted and following. recommendations for acute rehab. awaiting approval -continue monitor on tele until dc - neuro checks q4 - physical therapy - lipitor 80 - aggrenox bid - SCDs - close monitoring of BP - swallow eval recommendations noted and appreciated, speech much improved Code(s): I63.9 - CEREBRAL INFARCTION, UNSPECIFIED Qualifiers: CVA mechanism: occlusion Precerebral and cerebral artery: unspecified cerebral artery Qualified Code(s): I63.50 - Cerebral infarction due to unspecified occlusion or stenosis of unspecified cerebral artery Visit type - Emergency Visit Emergency Visit: Yes ED Registration Date: 05/17/19 Care time: The patient presented to the Emergency Department on the above date and was hospitalized for further evaluation of their emergent condition. - New Patient This patient is new to me today: No - Critical Care Critical Care patient: No - Discharge Referral Referred to [facility] Med P.C.: No
--- NOTE | 2019-05-23 08:42 | PN ---
Progress Note (short form) - Note Progress Note: Hospitalist to document today. May have problems at home if D/Raymond with GB drainage.
--- NOTE | 2019-05-23 08:43 | PN ---
Progress Note (short form) - Note Progress Note: Hospitalist to document today. Awaiting transfer to [facility]. Still BP issues.
--- NOTE | 2019-05-23 09:15 | PN ---
Progress Note (short form) - Note Progress Note: Neurology - Admission Chief Complaint: right sided weakness History of Present Illness: Patient is a 68 year old male with a significant past medical history of alcoholism (last drink day before admission as per ), hypertension, hyperlipidemia and GERD. He presents to the ED yesterday after he was noted to have weakness to his right arm and right leg while at the chiropractor's office. Patient states that he woke up this morning with right sided weakness and noted that his speech was slurred. He was told by chiropractor to come to the ED immediately for a possible stroke. Patient is having difficulty ambulating and his right leg is weak. He reports not feeling well since Tuesday of this week but did not seek medical attention until yesterday. Denies fevers, chills, lightheadedness, dizziness, headache, numbness and tingling. He denies any past withdrawal seizure, he states he last drink was last Tuesday and denies daily drinking, but drinks heavy (beers) when he does drink. Head CT compeleted - left area infract with moderate atropy and mid to moderate chronic microvascular ischemic disease changes sclerotic densithy in the left side of the frontal sinus measuring 1.3 x 0.8 cm consistent with an osteoma. Head and Nect CTA completed - mild to moderate focal basilar artery stenosis at the junction of the lower and middle thirds. Brain MRI completed - nonhemorrhagic subacute infarct in the left anterior parmedian [place] measuring 13mmx6.7mm. Carotid Doppler completed, minimal thickening of the common bifurcation without significant stenosis. Reports taking ASA 81mg at home with good compliance, discussed need to increase to aggrenox as patient with ASA failure and he was in agreement; Aggrenox BID ordered. Speech and R sided weakness better this AM. Is able to raise leg off bed and sustain it, speech with significantly more comprehensible. He is interested in rehab at [facility], in agreement with this. Previously had rehab there for both knees. Per notes, patient was medically accepted awaiting final approvals. Blood pressurethis morning still remains slightly elevated at systolic 160s, prefer less than 140 systolic, less than 90 diastolic. Allergies Allergy/AdvReac Type Severity Reaction Status Date / Time No Known Drug Allergies Allergy Verified 05/17/19 13:39 Active Medications Acetaminophen (Tylenol -) 650 mg PO Q6H PRN PRN Reason: HEADACHE Last Admin: 05/21/19 13:52 Dose: 650 mg Amlodipine Besylate (Norvasc -) 5 mg PO DAILY [facility] Last Admin: 05/22/19 09:10 Dose: 5 mg Atorvastatin Calcium (Lipitor -) 80 mg PO HS [facility] Last Admin: 05/21/19 21:15 Dose: 80 mg Dipyridamole/Aspirin (Aggrenox -) 1 combo PO BID [facility] Last Admin: 05/22/19 09:09 Dose: 1 combo Hydrochlorothiazide (Hctz -) 25 mg PO DAILY [facility] Last Admin: 05/22/19 09:09 Dose: 25 mg Lorazepam (Ativan -) 1 mg PO Q12H PRN PRN Reason: ANXIETY Last Admin: 05/21/19 18:24 Dose: 1 mg Losartan Potassium (Cozaar -) 100 mg PO DAILY [facility] Last Admin: 05/22/19 09:10 Dose: 100 mg Metoprolol Tartrate (Lopressor -) 100 mg PO BID [facility] Last Admin: 05/22/19 09:09 Dose: 100 mg Multivitamins/Minerals/Vitamin C (Tab-A-Vit -) 1 tab PO DAILY [facility] Last Admin: 05/22/19 09:09 Dose: 1 tab Trazodone HCl (Desyrel -) 200 mg PO [facility] Last Admin: 05/21/19 21:15 Dose: 200 mg Physical Examination Vital Signs: Vital Signs Period Temp Pulse Resp BP Sys/Cunningham Pulse Ox Last 24 Hr 97.5 F-98.4 F 63-79 17-21 150-162/68-88 99-100 Constitutional: Yes: No Distress, Calm Eyes: Yes: WNL HENT: Yes: Atraumatic Neck: Yes: Supple Cardiovascular: Yes: Regular Rate and Rhythm Respiratory: Yes: CTA Bilaterally Gastrointestinal: Yes: Abdomen, Obese ...Rectal Exam: Yes: Deferred Musculoskeletal: Yes: WNL, Back Pain Extremities: Yes: WNL Edema: No Integumentary: Yes: WNL Neurological: Awake, 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, 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, speech slurred, RLE 5-/5, L sided strenght intact, sensory equal CBCD WBC 8.7 K/mm3 (4.0-10.0) 05/23/19 05:00 RBC 5.45 M/mm3 (4.00-5.60) 05/23/19 05:00 Hgb 16.2 GM/dL (11.7-16.9) 05/23/19 05:00 Hct 47.2 % (35.4-49) 05/23/19 05:00 MCV 86.6 fl (80-96) 05/23/19 05:00 MCHC 34.4 g/dl (32.0-35.9) 05/23/19 05:00 RDW 14.9 % (11.9-15.9) 05/23/19 05:00 Plt Count 205 K/MM3 (134-434) 05/23/19 05:00 MPV 8.6 fl (7.5-11.1) 05/23/19 05:00 CMP Sodium 143 mmol/L (136-145) 05/23/19 05:00 Potassium 3.2 mmol/L (3.5-5.1) L 05/23/19 05:00 Chloride 110 mmol/L (98-107) H 05/23/19 05:00 Carbon Dioxide 23 mmol/L (21-32) 05/23/19 05:00 Anion Gap 9 MMOL/L (8-16) 05/23/19 05:00 BUN 27.1 mg/dL (7-18) H 05/23/19 05:00 Creatinine 1.1 mg/dL (0.55-1.3) 05/23/19 05:00 Random Glucose 98 mg/dL (74-106) 05/23/19 05:00 Calcium 9.2 mg/dL (8.5-10.1) 05/23/19 05:00 Total Bilirubin 1.0 mg/dL (0.2-1) 05/23/19 05:00 AST 26 U/L (15-37) 05/23/19 05:00 ALT 38 U/L (13-61) 05/23/19 05:00 Alkaline Phosphatase 53 U/L (45-117) 05/23/19 05:00 Total Protein 6.9 g/dl (6.4-8.2) 05/23/19 05:00 Albumin 3.7 g/dl (3.4-5.0) 05/23/19 05:00 CARDIAC ENZYMES Creatine Kinase 99 U/L (26-308) 05/17/19 14:20 Troponin I < 0.02 ng/ml (0.00-0.05) 05/18/19 11:41 Imaging: Head CT/non contrast 05/17/19: left area of infarct. moderate atropy and mid to moderate chronic microvascular ischemic disease changes sclerotic densithy in the left side of the frontal sinus measuring 1.3 x 0.8 cm consistent with an osteoma. Head/Neck CTA: mild to moderate focal basilar artery stenosis at the junction of the lower and middle thirds. Brain MRI: nonhemorrhagic subacute infarct in the left anterior parmedian [place] measureing 13mmx6.7mm. Carotid Doppler: minimal thickening of the common bifurcation without significant stenosis Plan/Assessment: Patient is a 68 year old male with a significant past medical history of alcoholism (last drink day before admission as per ), hypertension, hyperlipidemia and GERD. He presents to the ED yesterday after he was noted to have weakness to his right arm and right leg while at the chiropractor's office. Patient states that he woke up this morning with right sided weakness and noted that his speech was slurred. He was told by chiropractor to come to the ED immediately for a possible stroke. Patient is having difficulty ambulating and his right leg is weak. He reports not feeling well since Tuesday of this week but did not seek medical attention until yesterday. Denies fevers, chills, lightheadedness, dizziness, headache, numbness and tingling. He denies any past withdrawal seizure, he states he last drink was last Tuesday and denies daily drinking, but drinks heavy (beers) when he does drink. Head CT compeleted - left area infract with moderate atropy and mid to moderate chronic microvascular ischemic disease changes sclerotic densithy in the left side of the frontal sinus measuring 1.3 x 0.8 cm consistent with an osteoma. Head and Nect CTA completed - mild to moderate focal basilar artery stenosis at the junction of the lower and middle thirds. Brain MRI completed - nonhemorrhagic subacute infarct in the left anterior parmedian [place] measureing 13mmx6.7mm. Carotid Doppler completed, minimal thickening of the common bifurcation without significant stenosis. Patient put on high dose statin, can reduce as outpatient if needed on repeat LDL evaluation. Reports taking ASA 81mg at home with good compliance, discussed need to increase to aggrenox as patient with ASA failure and he was in agreement; Aggrenox BID ordered. He is interested in rehab at [facility], in agreement with this.Speech and R sided weakness better this AM. Is able to raise leg off bed and sustain it, speech with significantly more comprehensible. He is interested in rehab at [facility], in agreement with this. Previously had rehab there for both knees. Per notes, patient was medically accepted awaiting final approvals. Blood pressurethis morning still remains slightly elevated at systolic 160s, prefer less than 140 systolic, less than 90 diastolic.
[2019-05-23] MEDS: LOSARTAN POTASSIUM 50 MG TABLET (FP) PO SCH (09:52)
[2019-05-23] MEDS: ASPIRIN/DIPYRIDAMOLE 25 MG/200 MG CAPSULE PO SCH (09:56)
[2019-05-23] MEDS: MULTIVITAMINS (DAILY MVI) TABLET (FP) PO SCH (09:57)
[2019-05-23] MEDS: METOPROLOL TARTRATE 50 MG TABLET (FP) PO SCH (09:57)
[2019-05-23] MEDS: HYDROCHLOROTHIAZIDE 25 MG TABLET (FP) PO SCH (09:57)
--- NOTE | 2019-05-23 10:02 | PN ---
Progress Note (short form) - Note Progress Note: no chest pain, palps, dizziness, dyspea Current Medications Acetaminophen (Tylenol -) 650 mg PO Q6H PRN PRN Reason: HEADACHE Last Admin: 05/21/19 13:52 Dose: 650 mg Amlodipine Besylate (Norvasc -) 10 mg PO DAILY [facility] Atorvastatin Calcium (Lipitor -) 80 mg PO HS [facility] Last Admin: 05/22/19 21:03 Dose: 80 mg Dipyridamole/Aspirin (Aggrenox -) 1 combo PO BID [facility] Last Admin: 05/23/19 09:56 Dose: 1 combo Hydrochlorothiazide (Hctz -) 25 mg PO DAILY [facility] Last Admin: 05/23/19 09:57 Dose: 25 mg Lorazepam (Ativan -) 1 mg PO Q12H PRN PRN Reason: ANXIETY Last Admin: 05/21/19 18:24 Dose: 1 mg Losartan Potassium (Cozaar -) 100 mg PO DAILY [facility] Last Admin: 05/23/19 09:52 Dose: 100 mg Metoprolol Tartrate (Lopressor -) 100 mg PO BID [facility] Last Admin: 05/23/19 09:57 Dose: 100 mg Multivitamins/Minerals/Vitamin C (Tab-A-Vit -) 1 tab PO DAILY [facility] Last Admin: 05/23/19 09:57 Dose: 1 tab Trazodone HCl (Desyrel -) 200 mg PO HS [facility] Last Admin: 05/22/19 21:03 Dose: Not Given Vital Signs Period Temp Pulse Resp BP Sys/Cunningham Pulse Ox Last 24 Hr 97.5 F-98.4 F 63-79 17-21 150-160/68-88 100-100 Constitutional: Yes: Calm Cardiovascular: Yes: Regular Rate and Rhythm Respiratory: Yes: CTA Bilaterally Gastrointestinal: Yes: Soft Edema: No Neurological: Yes: Alert no jaundice, diaphoresis not agitated tele: sinus Assessment/Plan 68 m hx etoh abuse, htn, hld, pericardial effusion s/p drainage 20+years ago here with right sided weakness found to have CVA. CVA: -neuro following, switched to aggrenox -cont statin. monitor BP with amlodipine, uptitrate as tolerated -echo nl LV/RV function -no afib on tele HTN: -cont bb, arb, hctz, amlodipine HLD: -cont statin Pericardial eff: -remote hx s/p drainage 20+ years ago -no effusion on echo here
--- NOTE | 2019-05-23 10:27 | PN ---
Progress Note, [employer] - Note Progress Note: Per EMR, pt was gagging on nectar thick liquid but tolerated 30 ml thin water last night. Pt given thin water as pt dislikes thickened liquids. Per my repeat assessments, pt coughs responsively on liquids. MBS revealed fairly brisk but untimely swallow last week with aspiration risk. Pt is impulsive. He has been receiving mixed consistency of thin soup with noodles from family/ friends. So far he is tolerating it. Per EMR, he is not eating a lot. Selected Entries 05/22/19 05/22/19 05/22/19 02:00 06:15 10:00 Breakfast 25% Lunch Supper Temperature 98.1 F 98.4 F 05/22/19 05/22/19 05/22/19 15:26 18:03 20:06 Breakfast Lunch 25% Supper 0 Temperature 97.5 F L 05/22/19 05/23/19 21:00 06:00 Breakfast Lunch Supper Temperature 98.4 F 98 F Laboratory Tests 05/22/19 05/23/19 05:20 05:00 WBC 9.7 8.7 Pt pending transfer to [facility], once there is bed availability. Swallow reassessed when pt received pills with thin water. He does cough briefly , clear his throat, after a few sips. I am hesitant to upgrade pending discharge. Pt requesting upgrade. Speech production is definitely improving in rate of articulation and precision. Trial- To dys chopped tray add 1-2 soft, cohesive foods per tray eg mac and cheese,fish,ripe banana. [place] thick liquid meal time Free water protocol b/n meals. ( b/n meals, mouth care, followed by careful single sips of thin water) Monitor tolerance. Reviewed with nursing.
[2019-05-23 12:41] VITALS: PULSE 79
[2019-05-23 12:42] VITALS: BP 138/82; TEMP 98.2
--- NOTE | 2019-05-23 15:14 | DS ---
Physical Exam: SUBJECTIVE: Patient seen and examined OBJECTIVE: Vital Signs Period Temp Pulse Resp BP Sys/Cunningham Pulse Ox Last 24 Hr 97.5 F-98.4 F 63-79 16-21 138-164/68-88 100-100 PHYSICAL EXAM Constitutional: Yes: Well Nourished, No Distress, Calm Eyes: Yes: WNL, Conjunctiva Clear, EOM Intact HENT: Yes: WNL, Atraumatic, Normocephalic Neck: Yes: WNL, Supple, Trachea Midline Cardiovascular: Yes: WNL, Regular Rate and Rhythm Respiratory: Yes: WNL, Regular, CTA Bilaterally Gastrointestinal: Yes: WNL, Normal Bowel Sounds, Soft ...Rectal Exam: Yes: Deferred Genitourinary: Yes: WNL Breast(s): Yes: WNL Musculoskeletal: Yes: WNL Extremities: Yes: WNL Edema: No Peripheral Pulses WNL: Yes Integumentary: Yes: WNL Neurological: Yes: WNL, Alert, Oriented, Dysarthria (improving) ...Motor Strength: WNL Psychiatric: Yes LABS Laboratory Results - last 24 hr 05/23/19 05/23/19 05:00 05:00 WBC 8.7 RBC 5.45 Hgb 16.2 Hct 47.2 MCV 86.6 MCH 29.8 MCHC 34.4 RDW 14.9 Plt Count 205 MPV 8.6 Absolute Neuts (auto) 5.6 Neutrophils % 64.0 Lymphocytes % 24.5 Monocytes % 10.1 Eosinophils % 0.8 D Basophils % 0.6 Nucleated RBC % 0 Sodium 143 Potassium 3.2 L Chloride 110 H Carbon Dioxide 23 Anion Gap 9 BUN 27.1 H Creatinine 1.1 Est GFR (CKD-EPI)AfAm 80.08 Est GFR (CKD-EPI)NonAf 69.10 Random Glucose 98 Calcium 9.2 Magnesium 2.1 Total Bilirubin 1.0 AST 26 ALT 38 Alkaline Phosphatase 53 Total Protein 6.9 Albumin 3.7 HOSPITAL COURSE: Date of Admission:05/17/19 Date of Discharge: 05/23/19 - Problems (1) DVT prophylaxis Assessment/Plan: SCD on , no chemical anitcoagulation PT following, enoruage ambulation with assistance. Awaiting bed at [facility] facility Dispo maintained on tele until bed opens at [facility] full code (2) ETOH abuse Assessment/Plan: CIWA Score Nausea/Vomitin-No Nausea/No Vomiting Muscle Tremors: None Anxiety: 1-Mildly Anxious Agitation: 0-Normal Activity Paroxysmal Sweats: No Perspiration Orientation: 0-Oriented Tacttile Disturbances: 0-None Auditory Disturbances: 0-None Visual Disturbances: 0-None Headache: 1-mild CIWA-Ar Total Score: 2 headaches resolving and repsonding to tylenol c/w ativan 1mg PO and tylenol. c/w monitor for worsening signs of withdrawal see CIWA score (3) Hypertension Assessment/Plan: c/w losartan 100, hctz 25mg increased norvasc to 10mg qd to mainatin BL <140/90 with better BP control c/w ativan prn (4) Stroke Assessment/Plan: Acute stroke per head CT. Neuro consulted and following. recommendations for acute rehab. Approved at [facility] -continue monitor on tele until dc - neuro checks q4 - c/w physical therapy - c/w lipitor 80 - c/w aggrenox bid - close monitoring of BP - swallow eval recommendations noted and appreciated, speech much improved -as per speech pathologist Swallow reassessed when pt received pills with thin water. He does cough briefly, clear his throat, after a few sips. I am hesitant to upgrade pending discharge. Pt requesting upgrade. Speech production is definitely improving in rate of articulation and precision. Trial- To dys chopped tray add 1-2 soft, cohesive foods per tray eg mac and cheese,fish,ripe banana. [place] thick liquid meal time Free water protocol b/n meals. ( b/n meals, mouth care, followed by careful single sips of thin water) Monitor tolerance. Minutes to complete discharge: 30 Discharge Summary Reason For Visit: CEREBROVASCULAR ACCIDNT; CVA Current Active Problems DVT prophylaxis (Acute) ETOH abuse (Acute) Hypertension (Acute) Stroke (Acute) Hospital Course: - Problems (1) DVT prophylaxis Assessment/Plan: SCD on , no chemical anitcoagulation PT following, enoruage ambulation with assistance. Awaiting bed at [facility] Dispo maintained on tele until bed opens at [facility] full code (2) ETOH abuse Assessment/Plan: CIWA Score Nausea/Vomitin-No Nausea/No Vomiting Muscle Tremors: None Anxiety: 1-Mildly Anxious Agitation: 0-Normal Activity Paroxysmal Sweats: No Perspiration Orientation: 0-Oriented Tacttile Disturbances: 0-None Auditory Disturbances: 0-None Visual Disturbances: 0-None Headache: 1-mild CIWA-Ar Total Score: 2 headaches resolving and repsonding to tylenol c/w ativan 1mg PO and tylenol. c/w monitor for worsening signs of withdrawal see CIWA score (3) Hypertension Assessment/Plan: c/w losartan 100, hctz 25mg increased norvasc to 10mg qd to mainatin BL <140/90 with better BP control c/w ativan prn (4) Stroke Assessment/Plan: Acute stroke per head CT. Neuro consulted and following. recommendations for acute rehab. Approved at [facility] -continue monitor on tele until dc - neuro checks q4 - c/w physical therapy - c/w lipitor 80 - c/w aggrenox bid - close monitoring of BP - swallow eval recommendations noted and appreciated, speech much improved -as per speech pathologist Swallow reassessed when pt received pills with thin water. He does cough briefly, clear his throat, after a few sips. I am hesitant to upgrade pending discharge. Pt requesting upgrade. Speech production is definitely improving in rate of articulation and precision. Trial- To dys chopped tray add 1-2 soft, cohesive foods per tray eg mac and cheese,fish,ripe banana. [place] thick liquid meal time Free water protocol b/n meals. ( b/n meals, mouth care, followed by careful single sips of thin water) Monitor tolerance Condition: Improved - Instructions Diet, Activity, Other Instructions: You were admitted for an acute CVA (stroke) Your speech was slurred and you have weakness to your right arm. Your blood pressure was high and medication were adjusted to help control it better. Continue to take the losartan, hydrochlorothiazide and the increased dose of norvasc. You should abstain for any form of alcohol. You yill be going to [facility] facility for intensive therapy to return back to your baseline. Continue to diet that the speech pathologist recommended- chopped tray tray eg mac and cheese,fish,ripe banana. [place] thick liquid meal no thinner liquids. Make sure you are sitting upright during meals If once you are discharge home from [facility] if you have any further headaches that are not relieved by tylenol, difficulty speaking, or weakness to your legs or arms return back to the ED - Disposition: NURSING HOME FACILITY - Home Medications Comprehensive Discharge Medication List: Ambulatory Orders Aspirin [ASA -] 81 mg PO ONCE 08/08/14 Fenofibrate Nanocrystallized [Tricor] 145 mg PO DAILY 08/08/14 Metoprolol Tartrate [Lopressor -] 100 mg PO BID 08/08/14 [employer]-3 Acid Ethyl Esters [Lovaza -] 1 gm PO BID 08/08/14 Multivitamins [Multivit ([facility] Formulary)] 1 tab PO DAILY 12/11/18 Acetaminophen [Tylenol .Regular Strength -] 650 mg PO Q6H PRN tablet 05/23/19 Amlodipine Besylate [Norvasc -] 10 mg PO DAILY tablet 05/23/19 Aspirin/Dipyridamole [Aggrenox -] 1 combo PO BID capsule 05/23/19 Atorvastatin Ca [Lipitor] 80 mg PO HS tablet 05/23/19 Hydrochlorothiazide [Hctz -] 25 mg PO DAILY tablet 05/23/19 LORazepam [Ativan] 1 mg PO Q12H PRN tablet MDD 2 05/23/19 Losartan Potassium [Cozaar -] 100 mg PO DAILY tablet 05/23/19 traZODone HCL [Desyrel -] 200 mg PO HS tablet 05/23/19 Problem List - Problems (1) DVT prophylaxis Code(s): Z29.9 - ENCOUNTER FOR PROPHYLACTIC MEASURES, UNSPECIFIED (2) ETOH abuse Code(s): F10.10 - ALCOHOL ABUSE, UNCOMPLICATED (3) Hypertension Code(s): I10 - ESSENTIAL (PRIMARY) HYPERTENSION (4) Stroke Code(s): I63.9 - CEREBRAL INFARCTION, UNSPECIFIED Qualifiers: CVA mechanism: occlusion Precerebral and cerebral artery: unspecified cerebral artery Qualified Code(s): I63.50 - Cerebral infarction due to unspecified occlusion or stenosis of unspecified cerebral artery This patient is new to me today: No Emergency Visit: Yes ED Registration Date: 05/17/19 Care time: The patient presented to the Emergency Department on the above date and was hospitalized for further evaluation of their emergent condition. Critical Care patient: No - Discharge Referral Referred to [facility] No
== END 2019-05-23 15:31 | DRG 65 ==
LOC: JER 13:37 → JERBED 16:00 → J2W 05-18 02:36
PROVIDERS: ADMIT Internal Medicine; ATTEND Nurse Practitioner Acute Care
DX: I63.50 Cerebral infarction due to unspecified occlusion or stenosis of unspecified cerebral artery (principal); G81.91 Hemiplegia, unspecified affecting right dominant side; R29.708 NIHSS score 8; I10 Essential (primary) hypertension; E78.5 Hyperlipidemia, unspecified; K21.9 Gastro-esophageal reflux disease without esophagitis; F10.10 Alcohol abuse, uncomplicated; R00.1 Bradycardia, unspecified
CPT/HCPCS: 36415; 70450-TC; 70496-TC; 70498-TC; 70551-TC; 74230-TC-FY; 80053; 80061; 81003; 82465; 82550; 83036; 83718; 83721; 83735; 84443; 84478; 84484; 85025; 85610; 92611-GN; 93005; 93010; 93306-TC; 93880-TC; 97116-GP; 97162-GP; 99285-25; J0131; J7030

== ENCOUNTER 2022-02-23 16:29 | Emergency (ER) | payer OTHER ==
[2022-02-23 17:04] VITALS: BMI 28.7
[2022-02-23] MEDS ORDERED: SODIUM CHLORIDE 1,000 ML IV SCH (17:15)
[2022-02-23 17:43] VITALS: TEMP 97.8
[2022-02-23 18:51] LABS: BASO % 0.2 % (0-2.0); HEMATOCRIT 44.3 % (35.4-49); HEMOGLOBIN 14.8 GM/dL (11.7-16.9); LYMPH % 6.9 % (8-40); MCH 29.8 pg (25.7-33.7); MCHC 33.4 g/dl (32.0-35.9); MEAN CELL VOLUME 89.3 fl (80-96); MEAN PLT VOLUME 8.5 fl (7.5-11.1); MONO % 7.7 % (3.8-10.2); NEUT % 85.2 % (42.8-82.8); PLATELET COUNT 202 10^3/uL (134-434); RBC 4.96 M/mm3 (4.00-5.60); RDW 14.4 % (11.9-15.9); WHITE BLOOD COUNT 13.5 K/mm3 (4.0-10.0)
[2022-02-23 18:53] VITALS: BP 156/81; PULSE 91
[2022-02-23 19:01] LABS: INR 1.12 (0.83-1.09); PROTHROMBIN TIME (PATIENT) 12.9 SEC (9.7-13.0)
[2022-02-23 19:04] LABS: ACTIVATED PTT 25.9 SECONDS (25.2-36.5)
[2022-02-23 19:11] LABS: CALCIUM 9.3 mg/dL (8.5-10.1)
[2022-02-23 19:12] LABS: ALBUMIN 3.5 g/dl (3.4-5.0); BLOOD UREA NITROGEN 31.4 mg/dL (7-18)
[2022-02-23 19:15] LABS: CREATININE 1.1 mg/dL (0.55-1.3)
[2022-02-23 19:16] LABS: BILIRUBIN,TOTAL 1.6 mg/dL (0.2-1)
== END 2022-02-23 19:23 | disposition short-term general hospital (02) ==
LOC: JER 16:29
DX: I63.9 Cerebral infarction, unspecified (principal); I69.851 Hemiplegia and hemiparesis following other cerebrovascular disease affecting right dominant side; R47.81 Slurred speech
CPT/HCPCS: 36415; 70450-TC; 80053; 80061; 82962; 83036; 84484; 85025; 85610; 85730; 86850; 86900; 86901; 93005; 93010; 99285-25; C9803-CS; U0003; U0005

== ENCOUNTER 2022-06-02 04:23 | Day surgery (SDC) | payer OTHER ==
[2022-05-28 07:35] VITALS: BMI 30.1
[2022-06-02 08:53] VITALS: TEMP 98
[2022-06-02 09:38] VITALS: BP 146/54; PULSE 66; RESP 18
== END 2022-06-02 09:22 | disposition home or self-care (01) ==
LOC: JASU-ENDO 04:23
PROVIDERS: ATTEND Internal Medicine Gastroenterology
PROC: 0DJD8ZZ Inspection of Lower Intestinal Tract, Via Natural or Artificial Opening Endoscopic (ICD-10-PCS; principal; 2022-06-02 08:00)
DX: Z12.11 Encounter for screening for malignant neoplasm of colon (principal); K57.30 Diverticulosis of large intestine without perforation or abscess without bleeding; Z86.010 Personal history of colon polyps

== ENCOUNTER 2023-09-27 15:21 | Emergency (ER) | payer OTHER ==
[2023-09-27 15:33] VITALS: BP 163/85; PULSE 73; RESP 16; TEMP 98.3; BMI 27.2
[2023-09-27] MEDS ORDERED: ACETAMINOPHEN 500 MG TABLET (FP) PO ONE (16:36)
[2023-09-27] MEDS ORDERED: ACETAMINOPHEN 325 MG TABLET (FP) ONE (16:42)
[2023-09-27 17:03] LABS: BASO % 0.5 % (0-2.0); EOS % 0.9 % (0-4.5); HEMATOCRIT 45.2 % (35.4-49); HEMOGLOBIN 14.9 GM/dL (11.7-16.9); LYMPH % 14.4 % (8-40); MCH 29.6 pg (25.7-33.7); MCHC 32.9 g/dl (32.0-35.9); MEAN PLT VOLUME 7.9 fl (7.5-11.1); MONO % 7.7 % (3.8-10.2); NEUT % 76.5 % (42.8-82.8); PLATELET COUNT 208 10^3/uL (134-434); RBC 5.03 M/mm3 (4.00-5.60); RDW 14.9 % (11.9-15.9); WHITE BLOOD COUNT 8.9 K/mm3 (4.0-10.0)
[2023-09-27 17:23] LABS: POTASSIUM 4.3 mmol/L (3.5-5.1)
[2023-09-27 17:26] LABS: CALCIUM 9.7 mg/dL (8.5-10.1)
[2023-09-27 17:27] LABS: ALBUMIN 3.7 g/dl (3.4-5.0); BLOOD UREA NITROGEN 19.7 mg/dL (7-18)
[2023-09-27 17:30] LABS: CREATININE 0.9 mg/dL (0.55-1.3)
[2023-09-27 17:32] LABS: BILIRUBIN,TOTAL 1.1 mg/dL (0.2-1)
[2023-09-27 17:33] LABS: TOT PROT 7.1 g/dl (6.4-8.2)
== END 2023-09-27 18:37 | disposition left against medical advice (07) ==
LOC: JER 15:21
DX: M25.551 Pain in right hip (principal); W01.0XXA Fall on same level from slipping, tripping and stumbling without subsequent striking against object, initial encounter; Y92.000 Kitchen of unspecified non-institutional (private) residence as the place of occurrence of the external cause
CPT/HCPCS: 36415; 70450-TC; 72170-TC-FY; 72192-TC; 73502-TC-RT-FY; 80053; 85025; 99285-25

== ENCOUNTER 2023-09-28 14:28 | Observation (INO) | payer OTHER ==
[2023-09-28 16:37] LABS: BASO % 0.5 % (0-2.0); EOS % 1.4 % (0-4.5); HEMOGLOBIN 14.9 GM/dL (11.7-16.9); LYMPH % 12.9 % (8-40); MCH 29.6 pg (25.7-33.7); MEAN CELL VOLUME 89.6 fl (80-96); MEAN PLT VOLUME 7.9 fl (7.5-11.1); MONO % 7.8 % (3.8-10.2); NEUT % 77.4 % (42.8-82.8); PLATELET COUNT 213 10^3/uL (134-434); RBC 5.03 M/mm3 (4.00-5.60); WHITE BLOOD COUNT 8.6 K/mm3 (4.0-10.0)
[2023-09-28 18:36] LABS: POTASSIUM 4.1 mmol/L (3.5-5.1)
[2023-09-28 18:38] LABS: ALBUMIN 3.6 g/dl (3.4-5.0); BLOOD UREA NITROGEN 20.2 mg/dL (7-18); CALCIUM 9.5 mg/dL (8.5-10.1)
[2023-09-28 18:41] LABS: CREATININE 1.2 mg/dL (0.55-1.3)
[2023-09-28 18:43] LABS: BILIRUBIN,TOTAL 0.9 mg/dL (0.2-1); TOT PROT 7.2 g/dl (6.4-8.2)
[2023-09-28] MEDS ORDERED: METOPROLOL TARTRATE 50 MG TABLET (FP) ONE (22:45)
[2023-09-28] MEDS: OMEGA-3 ACID ETHYL ESTERS (FATTY-ACIDS) 1 GM CAPSULE (FP) PO SCH (22:58)
[2023-09-28] MEDS: METOPROLOL TARTRATE 50 MG TABLET (FP) PO SCH (22:58)
[2023-09-28] MEDS: DONEPEZIL HCL 10 MG TABLET (FP) PO SCH (22:58)
[2023-09-29] MEDS ORDERED: IBUPROFEN 400 MG TABLET (FP) PO ONE (00:41)
[2023-09-29] MEDS: IBUPROFEN 400 MG TABLET (FP) PO PRN ×2 (00:44→09:31)
[2023-09-29] MEDS: OMEGA-3 ACID ETHYL ESTERS (FATTY-ACIDS) 1 GM CAPSULE (FP) PO SCH ×2 (05:00→13:54)
[2023-09-29 05:46] VITALS: BMI 29.2
[2023-09-29] MEDS: ASPIRIN/DIPYRIDAMOLE 25 MG/200 MG CAPSULE PO SCH (09:31)
[2023-09-29] MEDS: METOPROLOL TARTRATE 50 MG TABLET (FP) PO SCH ×2 (09:31→21:55)
[2023-09-29] MEDS: amLODIPine BESYLATE 10 MG TABLET (FP) PO SCH (09:31)
[2023-09-29] MEDS: FOLIC ACID 1 MG TABLET (FP) PO SCH (09:32)
[2023-09-29 09:51] LABS: BASO % 0.4 % (0-2.0); HEMATOCRIT 43.6 % (35.4-49); HEMOGLOBIN 14.4 GM/dL (11.7-16.9); LYMPH % 17.4 % (8-40); MCH 29.7 pg (25.7-33.7); MCHC 32.9 g/dl (32.0-35.9); MEAN CELL VOLUME 90.2 fl (80-96); MEAN PLT VOLUME 8.2 fl (7.5-11.1); MONO % 8.5 % (3.8-10.2); NEUT % 70.7 % (42.8-82.8); PLATELET COUNT 204 10^3/uL (134-434); RBC 4.84 M/mm3 (4.00-5.60); RDW 14.7 % (11.9-15.9); WHITE BLOOD COUNT 8.2 K/mm3 (4.0-10.0)
[2023-09-29] MEDS ORDERED: PANTOPRAZOLE 40 MG TABLET PO SCH (10:00)
[2023-09-29 10:24] LABS: POTASSIUM 3.6 mmol/L (3.5-5.1)
[2023-09-29 10:32] LABS: ALBUMIN 3.2 g/dl (3.4-5.0); BLOOD UREA NITROGEN 14.6 mg/dL (7-18); PHOSPHOROUS 2.7 mg/dL (2.5-4.9)
[2023-09-29 10:34] LABS: BILIRUBIN,TOTAL 1.1 mg/dL (0.2-1); TOT PROT 6.8 g/dl (6.4-8.2)
[2023-09-29 10:35] LABS: CREATININE 0.9 mg/dL (0.55-1.3)
[2023-09-29 10:36] LABS: CALCIUM 8.8 mg/dL (8.5-10.1)
[2023-09-29 10:37] LABS: MAGNESIUM 2.2 mg/dL (1.8-2.4)
[2023-09-29] MEDS: FENOFIBRIC ACID 135 MG CAP PO SCH (10:42)
[2023-09-29] MEDS ORDERED: KETOROLAC TROMETHAMINE 15 MG/ML VIAL IVPUSH PRN (14:37)
[2023-09-29] MEDS ORDERED: ACETAMINOPHEN 1000 MG/100 ML BAG IVPB PRN (14:37)
[2023-09-29] MEDS: PANTOPRAZOLE 40 MG TABLET PO SCH (18:16)
[2023-09-29] MEDS: DONEPEZIL HCL 10 MG TABLET (FP) PO SCH (21:55)
[2023-09-30] MEDS: OMEGA-3 ACID ETHYL ESTERS (FATTY-ACIDS) 1 GM CAPSULE (FP) PO SCH ×2 (01:10→06:06)
[2023-09-30 08:46] LABS: HEMATOCRIT 41.3 % (35.4-49); HEMOGLOBIN 13.7 GM/dL (11.7-16.9); MCHC 33.3 g/dl (32.0-35.9); MEAN CELL VOLUME 90.4 fl (80-96); MEAN PLT VOLUME 8.2 fl (7.5-11.1); PLATELET COUNT 194 10^3/uL (134-434); RBC 4.57 M/mm3 (4.00-5.60); RDW 14.6 % (11.9-15.9); WHITE BLOOD COUNT 7.7 K/mm3 (4.0-10.0)
[2023-09-30 09:10] LABS: POTASSIUM 3.7 mmol/L (3.5-5.1)
[2023-09-30 09:11] LABS: CALCIUM 8.5 mg/dL (8.5-10.1)
[2023-09-30 09:13] LABS: BLOOD UREA NITROGEN 17.1 mg/dL (7-18); MAGNESIUM 1.9 mg/dL (1.8-2.4)
[2023-09-30 09:15] LABS: CREATININE 0.9 mg/dL (0.55-1.3)
[2023-09-30] MEDS: ASPIRIN/DIPYRIDAMOLE 25 MG/200 MG CAPSULE PO SCH (09:55)
[2023-09-30] MEDS: METOPROLOL TARTRATE 50 MG TABLET (FP) PO SCH (09:55)
[2023-09-30] MEDS: amLODIPine BESYLATE 10 MG TABLET (FP) PO SCH (09:55)
[2023-09-30] MEDS: FOLIC ACID 1 MG TABLET (FP) PO SCH (09:55)
[2023-09-30] MEDS: FENOFIBRIC ACID 135 MG CAP PO SCH (09:55)
[2023-09-30] MEDS: PANTOPRAZOLE 40 MG TABLET PO SCH (09:55)
[2023-09-30 11:25] VITALS: BP 136/66; PULSE 62; RESP 16; TEMP 98.3
== END 2023-09-30 14:33 | disposition home or self-care (01) ==
LOC: JER 14:28 → JERFT 14:28 → UNDOADMOB 16:43 → JERBED 16:43 → INTOOBSV 16:43 → JERBED 17:55 → J6S 09-29 04:56 → JERBED 09-29 04:56 → J6S 09-29 04:56
PROVIDERS: ADMIT Internal Medicine; ATTEND Internal Medicine
PROC: 3E0333Z Introduction of Anti-inflammatory into Peripheral Vein, Percutaneous Approach (ICD-10-PCS; principal; 2023-09-28)
DX: M79.651 Pain in right thigh (principal); S32.591S Other specified fracture of right pubis, sequela; W18.39XS Other fall on same level, sequela; R26.2 Difficulty in walking, not elsewhere classified; Z96.653 Presence of artificial knee joint, bilateral; Z96.641 Presence of right artificial hip joint; F10.10 Alcohol abuse, uncomplicated; K21.9 Gastro-esophageal reflux disease without esophagitis; Z86.73 Personal history of transient ischemic attack (TIA), and cerebral infarction without residual deficits; I10 Essential (primary) hypertension; E78.5 Hyperlipidemia, unspecified; F41.9 Anxiety disorder, unspecified; I31.39 Other pericardial effusion (noninflammatory); G89.29 Other chronic pain; M54.50 Low back pain, unspecified; Z87.891 Personal history of nicotine dependence
CPT/HCPCS: 0241U-QW; 36415; 80048; 80053; 83735; 84100; 85025; 85027; 96374; 97116-GP; 97162-GP; 99285-25; G0378

== ENCOUNTER 2024-10-07 16:34 | Emergency (ER) | payer OTHER ==
[2024-10-07 17:00] VITALS: BP 146/66; PULSE 66; RESP 18; TEMP 97; BMI 27.9
[2024-10-07] MEDS: ACETAMINOPHEN 500 MG TABLET (FP) PO ONE (20:52)
[2024-10-07] MEDS ORDERED: ACETAMINOPHEN 325 MG TABLET (FP) ONE (20:53)
== END 2024-10-07 21:43 | disposition home or self-care (01) ==
LOC: JER 16:34
DX: S05.11XA Contusion of eyeball and orbital tissues, right eye, initial encounter (principal); F10.10 Alcohol abuse, uncomplicated; Y90.9 Presence of alcohol in blood, level not specified; W01.0XXA Fall on same level from slipping, tripping and stumbling without subsequent striking against object, initial encounter
CPT/HCPCS: 70450-TC; 70486-TC; 72125-TC; 82962; 93005; 93010; 99285-25